=== PATIENT | female | born 1995 | race Caucasian/White ===

== ENCOUNTER 2016-08-10 20:22 | Emergency (ER) | payer OTHER ==
[2016-08-10 21:09] VITALS: RESP 18
[2016-08-10 22:50] LABS: Basophils # (A) 0.1 k/uL (0-0.2); Basophils % (A) 1 %; CH 27.8; CHCM 33.8; Eosinophils # (A) 0.7 k/uL (0-0.7); Eosinophils % (A) 9 %; HCT 41.9 % (34.0-46.0); HDW 2.17; Luc # (Auto) 0.22; Luc % (Auto) 3; Lymphocytes # (A) 2.6 k/uL (1.0-4.8); Lymphocytes % (A) 34 %; MCH 27.6 pg (25.0-35.0); MCHC 33.5 g/dL (31.0-37.0); MCV 82.3 fL (80.0-100.0); Mean Platelet Volume 7.5; Monocytes # (A) 0.4 k/uL (0-1.0); Monocytes % (A) 5 %; Neutrophils # (A) 3.7 k/uL (1.3-7.7); Neutrophils % (A) 49 %; RDW 12.9 % (11.5-15.5); WBC 7.7 k/uL (4.0-11.0); WBC (Perox) 7.87
[2016-08-10 22:56] LABS: Appearance,Urine Cloudy (Clear); Bacteria,Urine Few /hpf; Bilirubin,Urine Negative (Negative); Glucose,Urine (UA) Negative (Negative); Ketones,Urine Negative (Negative); Leukocyte Esterase,Urine Large (Negative); Mucus,Urine Rare /hpf; Nitrite,Urine Negative (Negative); Particle Count 12704; Protein,Urine Negative (Negative); RBC,Urine 21 /hpf (0-5); Specific Gravity,Urine 1.012 (1.001-1.035); Squamous Epithelial Cell,Urine 3 /hpf (0-4); UA Billing (MACRO vs. MICRO) MICRO; Urobilinogen,Urine <2.0 mg/dL (<2.0); WBC,Urine >182 /hpf (0-5)
[2016-08-10 22:59] LABS: ALT 33 U/L (9-52); AST 18 U/L (14-36); Alkaline Phosphatase 75 U/L (38-126); Anion Gap 14 mmol/L; Blood Urea Nitrogen 7 mg/dL (7-17); Calcium 10.2 mg/dL (8.4-10.2); Carbon Dioxide 23 mmol/L (22-30); Chloride 107 mmol/L (98-107); Glucose 86 mg/dL (74-99); Non-African American GFR(MDRD) >60 (>60 ml/min/1.73 sqM); Potassium 4.4 mmol/L (3.5-5.1); Sodium 144 mmol/L (137-145); Total Bilirubin 1.5 mg/dL (0.2-1.3); Total Protein 7.9 g/dL (6.3-8.2)
[2016-08-10] MEDS ORDERED: cefTRIAXone 250 MG VIAL IM STA (23:32)
[2016-08-10] MEDS ORDERED: AZITHROMYCIN 500 MG TAB PO STA (23:33)
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
[2016-08-11 00:07] VITALS: BP 129/81; PULSE 94; TEMP 98.7
--- NOTE | 2016-08-11 00:12 | XR ---
EXAM: XR Chest, 2 Views. CLINICAL HISTORY: Reason: Pain TECHNIQUE: Frontal and lateral views of the chest. COMPARISON: No relevant prior studies available. FINDINGS: Lungs: Unremarkable. No consolidation. Pleural spaces: Unremarkable. No pneumothorax. Heart: Unremarkable. No cardiomegaly. Mediastinum: Unremarkable. Bones: Unremarkable. No acute fracture. Other findings: IMPRESSION: No acute process seen within the chest.
[2016-08-11] MEDS ORDERED: metroNIDAZOLE 500 MG TAB PO STA (00:24)
[2016-08-12 09:32] LABS: Chlamydia/GC Source Vaginal
== END 2016-08-11 00:51 | disposition home or self-care (01) ==
LOC: EC 20:22
DX: N39.0 Urinary tract infection, site not specified (principal); A59.9 Trichomoniasis, unspecified; Z20.2 Contact with and (suspected) exposure to infections with a predominantly sexual mode of transmission
CPT/HCPCS: 36415; 93005; 80053; 87591; 87491; 84484; 85025; 81001; 81025; 87808; 87070; 87502; 71020; 99285; 96372; J0696; 87205

== ENCOUNTER 2017-03-21 20:33 | Emergency (ER) | payer OTHER ==
[2017-03-21 20:56] VITALS: RESP 18
[2017-03-21] MEDS ORDERED: IBUPROFEN 400 MG TAB PO STA (22:26)
[2017-03-21] MEDS ORDERED: predniSONE 20 MG TAB PO STA (22:26)
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
[2017-03-21 22:51] VITALS: BP 134/83; PULSE 82; TEMP 98.4
== END 2017-03-21 23:06 | disposition home or self-care (01) ==
LOC: EC 20:33
DX: J06.9 Acute upper respiratory infection, unspecified (principal); E66.9 Obesity, unspecified; Z91.018 Allergy to other foods; Z68.41 Body mass index [BMI] 40.0-44.9, adult
CPT/HCPCS: 99283 ×2; J7512

== ENCOUNTER 2017-06-02 16:47 | Emergency (ER) | payer OTHER ==
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
[2017-06-03 23:10] VITALS: BP 120/74; PULSE 73; RESP 18; TEMP 97.8
== END 2017-06-02 17:48 | disposition home or self-care (01) ==
LOC: EC 16:47
DX: J02.0 Streptococcal pharyngitis (principal); Z91.018 Allergy to other foods; Z79.899 Other long term (current) drug therapy
CPT/HCPCS: 87430; 99283

== ENCOUNTER 2017-07-12 20:14 | Emergency (ER) | payer OTHER ==
[2017-07-12 20:22] VITALS: BP 121/67; PULSE 98; RESP 18; TEMP 97.3
[2017-07-12] MEDS ORDERED: ACETAMINOPHEN TAB 325 MG TAB PO STA (20:31)
--- NOTE | 2017-07-12 21:07 | ED ---
Lower Extremity Injury HPI - General Chief Complaint: Extremity Injury, Lower Stated Complaint: foot pain Time Seen by Provider: 07/12/17 20:22 Source: patient Mode of arrival: ambulatory Limitations: no limitations - History of Present Illness Initial Comments: 21-year-old female patient presents to the emergency department today for complaints of right foot pain. Patient states that on Thursday she slipped down up 4-5 steps and twisted her foot. States that since it is not very painful to walk on the foot. She states that she feels the foot is swollen. She denies any numbness or tingling to the foot. She denies hitting her head or losing consciousness during the fall. She denies any other injuries. Patient denies any headache, neck pain, back pain, chest pain, shortness of breath, dizziness, weakness, abdominal pain, nausea, vomiting, or difficulties with bowel movements or urination. - Related Data Home Medications Medication Instructions Recorded Confirmed Cetirizine HCl [Zyrtec] 10 mg PO HS 04/08/17 04/08/17 Previous Rx's Medication Instructions Recorded Acetaminophen-Codeine 300-30mg 1 each PO Q6H PRN #10 tablet 04/08/17 [Tylenol #3] Penicillin V Potassium [Pen Vee K] 500 mg PO QID #40 tablet 04/08/17 Amoxicillin 500 mg PO Q12HR #20 cap 06/02/17 Allergies Allergy/AdvReac Type Severity Reaction Status Date / Time onion Allergy Anaphylaxis Verified 07/12/17 20:21 Review of Systems ROS Statement: Those systems with pertinent positive or pertinent negative responses have been documented in the HPI. ROS Other: All systems not noted in ROS Statement are negative. Past Medical History Past Medical History: Asthma History of Any Multi-Drug Resistant Organisms: None Reported Additional Past Surgical History / Comment(s): wisdom teeth Past Psychological History: Depression Smoking Status: Never smoker Past Alcohol Use History: None Reported Past Drug Use History: Marijuana General Exam Limitations: no limitations General appearance: alert, in no apparent distress, other (This is a well- developed, well-nourished adult female patient in no acute distress. Vital signs upon presentation are temperature 97.3F, pulse 98, respirations 18, blood pressure 121/67, pulse ox 100% on room air.) Eye exam: Present: normal appearance, PERRL, EOMI. Absent: scleral icterus, conjunctival injection, periorbital swelling ENT exam: Present: normal exam, normal oropharynx, mucous membranes moist Neck exam: Present: normal inspection, full ROM, other (Nontender, no step-off, no deformity to firm midline palpation of the posterior cervical spine. Full range of motion without pain or limitation.). Absent: tenderness, meningismus, lymphadenopathy Respiratory exam: Present: normal lung sounds bilaterally. Absent: respiratory distress, wheezes, rales, rhonchi, stridor Cardiovascular Exam: Present: regular rate, normal rhythm, normal heart sounds. Absent: systolic murmur, diastolic murmur, rubs, gallop, clicks Extremities exam: Present: normal inspection, full ROM, tenderness (Tenderness over the dorsal aspect of the foot near the base of the toes.), normal capillary refill. Absent: pedal edema, joint swelling, calf tenderness Back exam: Present: normal inspection. Absent: vertebral tenderness Neurological exam: Present: alert, oriented X3, CN II-XII intact Psychiatric exam: Present: normal affect, normal mood Skin exam: Present: warm, dry, intact, normal color. Absent: rash Course Vital Signs 07/12/17 20:18 Temperature 97.3 F L Pulse Rate 98 Respiratory 18 Rate Blood Pressure 121/67 O2 Sat by Pulse 100 Oximetry Medical Decision Making - Medical Decision Making 21-year-old female patient percents to the emergency department today for evaluation of right foot pain after a slip and fall injury on Thursday. Physical examination is unremarkable. Patient has a good pedal and posttibial pulses. Neurovascular status is intact. X-ray is negative for any acute fracture dislocation. She was educated regarding follow-up for continued pain after 7- 10 days which is instructed take ibuprofen, rest, ice, and elevate the extremity. She is instructed to return here immediately for any new, worsening , or concerning symptoms. She verbalizes understanding and agrees with this plan. - Radiology Data Radiology results: report reviewed, image reviewed 3 views of the right foot are obtained. There is mild hallux valgus deformity present. No acute fractures are evident. There is deformity of the fifth digit. Joint spaces appear preserved. Soft tissues are normal. Impression by Dr. Ambrocio shows no acute osseous abnormalities. Disposition Clinical Impression: Foot sprain Disposition: HOME SELF-CARE Condition: Good Instructions: Foot Sprain (ED) Additional Instructions: Rest, ice, elevate the foot. Take Tylenol Motrin for pain control. Follow-up with her primary care physician for reevaluation in 6-8 days for repeat x-ray if symptoms persist beyond that period. Return here immediately for any new, worsening, or concerning symptoms Referrals: Braden Shea MD [Primary Care Provider] - 1-2 days Time of Disposition: 21:19
--- NOTE | 2017-07-12 21:15 | XR ---
EXAMINATION TYPE: XR foot complete RT DATE OF EXAM: 07/12/2017 COMPARISON: NONE HISTORY: Pain, fall TECHNIQUE: Three-view right foot FINDINGS: There is mild hallux valgus deformity present. No acute fractures are evident. There is def ormity of the fifth digit may be present. Joint spaces are preserved. Soft tissues are normal. IMPRESSION: 1. No acute osseous abnormality evident. 2. Follow-up exams can be performed 7-10 days from acute trauma for continued pain.
== END 2017-07-12 21:30 | disposition home or self-care (01) ==
LOC: EC 20:14
DX: S93.601A Unspecified sprain of right foot, initial encounter (principal); Z79.899 Other long term (current) drug therapy; Z91.018 Allergy to other foods; W10.9XXA Fall (on) (from) unspecified stairs and steps, initial encounter; Y92.009 Unspecified place in unspecified non-institutional (private) residence as the place of occurrence of the external cause
CPT/HCPCS: 99283

== ENCOUNTER 2017-09-09 11:19 | Emergency (ER) | payer OTHER ==
[2017-09-09 11:29] VITALS: BP 124/83; PULSE 95; RESP 18; TEMP 98.9
--- NOTE | 2017-09-09 13:20 | ED ---
General Adult HPI - General Chief complaint: Skin/Abscess/Foreign Body Stated complaint: Hole in Armpit Time Seen by Provider: 09/09/17 12:42 Source: patient, RN notes reviewed Mode of arrival: ambulatory Limitations: no limitations - History of Present Illness Initial comments: 22-year-old female presents to the emergency department for a chief complaint of left armpit tenderness. Patient states this has been the second day of symptoms. Patient states she had an abscess on her buttock before and she believes that is what is going on in her armpit. Patient states hurts to lower her arm and apply pressure to the armpit. Patient denies trying warm compresses. Patient denies any drainage from the area. Patient denies any fevers at home. Patient denies any streaking redness. Patient states she has not taken anything for pain. Patient denies any ALLERGIES to medications or antibiotics. Patient denies any other complaints at this time including shortness of breath, chest pain, abdominal pain, shortness of breath. - Related Data Home Medications Medication Instructions Recorded Confirmed Cetirizine HCl [Zyrtec] 10 mg PO HS 04/08/17 04/08/17 Previous Rx's Medication Instructions Recorded Acetaminophen-Codeine 300-30mg 1 each PO Q6H PRN #10 tablet 04/08/17 [Tylenol #3] Penicillin V Potassium [Pen Vee K] 500 mg PO QID #40 tablet 04/08/17 Amoxicillin 500 mg PO Q12HR #20 cap 06/02/17 Sulfamethox-Tmp 800-160Mg [Bactrim 1 tab PO Q12HR #20 tab 09/09/17 DS 800-160 mg] Allergies Allergy/AdvReac Type Severity Reaction Status Date / Time onion Allergy Anaphylaxis Verified 09/09/17 11:29 Review of Systems ROS Statement: Those systems with pertinent positive or pertinent negative responses have been documented in the HPI. ROS Other: All systems not noted in ROS Statement are negative. Past Medical History Past Medical History: Asthma History of Any Multi-Drug Resistant Organisms: None Reported Additional Past Surgical History / Comment(s): wisdom teeth Past Psychological History: Anxiety, Depression Smoking Status: Never smoker Past Alcohol Use History: None Reported Past Drug Use History: Marijuana General Exam Limitations: no limitations Neck exam: Present: normal inspection. Absent: tenderness, meningismus, lymphadenopathy Respiratory exam: Present: normal lung sounds bilaterally. Absent: respiratory distress, wheezes, rales, rhonchi, stridor Cardiovascular Exam: Present: regular rate, normal rhythm, normal heart sounds. Absent: systolic murmur, diastolic murmur, rubs, gallop, clicks Skin exam: Present: warm, dry, intact, other (Skin in the area of the left armpit does not appear indurated or erythematous. Abscess not visualized on the surface. Patient states the tenderness is mostly in the middle of the armpit. Patient is tender to palpation. There is no drainage. ) Course Vital Signs 09/09/17 11:27 Temperature 98.9 F Pulse Rate 95 Respiratory 18 Rate Blood Pressure 124/83 O2 Sat by Pulse 97 Oximetry Medical Decision Making - Medical Decision Making 22-year-old female presents the emergency department for pain in the left armpit. Patient states that then 2 days. No fevers or worsening symptoms. Vitals within normal limits: Temp 98.9, pulse 95. No spreading redness or streaking redness. Patient has had an abscess before and believes it is an abscess. Patient has no other symptoms at this time. On exam, abscess not visualized on the surface. There is no focal point for drainage. Skin is not erythematous. Patient is tender in the armpit. Patient will be given Bactrim and told to use warm compresses. She was educated on how to do this. She was educated that this will hopefully bring it to the surface so it can be drained. She is to follow-up with Dr. Shea as discussed. She will return to the emergency Department if she notices any fevers or worsening symptoms. Disposition Clinical Impression: Abscess Disposition: HOME SELF-CARE Condition: Good Instructions: Abscess (ED), Warm Compress or Soak (ED) Additional Instructions: Please do warm compresses and take antibiotic as discussed. Please follow-up with Dr. Whiting and as discussed in one to 2 days. Return to the emergency department if you notice any fevers, worsening symptoms, or streaking redness. Prescriptions: Sulfamethox-Tmp 800-160Mg [Bactrim DS 800-160 mg] 1 tab PO Q12HR #20 tab Referrals: Braden Shea MD [Primary Care Provider] - 1-2 days
== END 2017-09-09 13:23 | disposition home or self-care (01) ==
LOC: EC 11:19
DX: L02.412 Cutaneous abscess of left axilla (principal); Z79.899 Other long term (current) drug therapy; Z91.018 Allergy to other foods
CPT/HCPCS: 99283

== ENCOUNTER 2017-10-04 13:06 | Emergency (ER) | payer OTHER ==
[2017-10-04 13:10] VITALS: BP 125/77; PULSE 87; RESP 20; TEMP 98.1
--- NOTE | 2017-10-04 13:40 | XR ---
EXAMINATION TYPE: XR lumbar spine 2 or 3V , 3 VIEWS DATE OF EXAM ORDERED: 10/04/2017 HISTORY: Pain. COMPARISON: None. FINDINGS: Due to body height and alignment are maintained. There is no spondylolysis or spondylolist hesis. Disc spaces are maintained. There is hypertrophic spondylosis at T11-12. The pedicles are inta ct. IMPRESSION: 1. NO ACUTE OSSEOUS LESION. 2. DEGENERATIVE CHANGE.
--- NOTE | 2017-10-04 13:40 | XR ---
EXAMINATION TYPE: XR thoracic spine complete , 3 VIEWS DATE OF EXAM ORDERED: 10/04/2017 HISTORY: Pain. COMPARISON: None. FINDINGS: Review body height and alignment are maintained. No fractures are seen. Paraspinal soft ti ssues are normal. The pedicles are intact. IMPRESSION: NORMAL THORACIC SPINE.
--- NOTE | 2017-10-04 13:41 | XR ---
EXAMINATION TYPE: XR Hip Complete LT , 2 VIEWS DATE OF EXAM ORDERED: 10/04/2017 HISTORY: Pain. COMPARISON: None. FINDINGS: No fracture, dislocation or other acute osseous lesion is seen IMPRESSION: NORMAL LEFT HIP.
--- NOTE | 2017-10-04 14:14 | ED ---
General Adult HPI - General Chief complaint: Back Pain/Injury Stated complaint: back and pelvis pain from fall down stairs Time Seen by Provider: 10/04/17 13:12 Source: patient, RN notes reviewed Mode of arrival: ambulatory Limitations: no limitations - History of Present Illness Initial comments: 22-year-old female presents to the emergency department for a chief complaint of back pain 2 days. Patient states her heel slipped down a step and she fell on her bottom and slid down about 5 steps. Patient states she has had pain since that time. Patient denies hitting her head or injuring her neck. Patient denies loss of consciousness. Patient denies any bladder retention or bowel incontinence. Patient denies any numbness or tingling in her groin or buttock. Patient denies any shooting pain down her legs but does say some pain is radiating around her left hip. Patient states she is able to walk. Patient has no other complaints at this time. Patient denies shortness of breath, chest pain, abdominal pain, nausea or vomiting, headache or visual changes. - Related Data Home Medications Medication Instructions Recorded Confirmed Cetirizine HCl [Zyrtec] 10 mg PO HS 04/08/17 04/08/17 Previous Rx's Medication Instructions Recorded Acetaminophen-Codeine 300-30mg 1 each PO Q6H PRN #10 tablet 04/08/17 [Tylenol #3] Penicillin V Potassium [Pen Vee K] 500 mg PO QID #40 tablet 04/08/17 Amoxicillin 500 mg PO Q12HR #20 cap 06/02/17 Sulfamethox-Tmp 800-160Mg [Bactrim 1 tab PO Q12HR #20 tab 09/09/17 DS 800-160 mg] Acetaminophen-Codeine 300-30mg 1 tab PO Q8H PRN #9 tablet 10/04/17 [Tylenol #3] Cyclobenzaprine [Flexeril] 5 mg PO TID #9 tablet 10/04/17 Ibuprofen [Motrin] 600 mg PO Q8HR PRN #20 tab 10/04/17 Allergies Allergy/AdvReac Type Severity Reaction Status Date / Time onion Allergy Anaphylaxis Verified 10/04/17 13:10 Review of Systems ROS Statement: Those systems with pertinent positive or pertinent negative responses have been documented in the HPI. ROS Other: All systems not noted in ROS Statement are negative. Past Medical History Past Medical History: Asthma History of Any Multi-Drug Resistant Organisms: None Reported Additional Past Surgical History / Comment(s): wisdom teeth Past Psychological History: Anxiety, Depression Smoking Status: Never smoker Past Alcohol Use History: Occasional Past Drug Use History: Marijuana General Exam Limitations: no limitations General appearance: alert, in no apparent distress Head exam: Present: atraumatic, normocephalic, normal inspection Eye exam: Present: normal appearance, PERRL, EOMI. Absent: scleral icterus, conjunctival injection, periorbital swelling Neck exam: Present: normal inspection, full ROM. Absent: tenderness, meningismus, lymphadenopathy Respiratory exam: Present: normal lung sounds bilaterally. Absent: respiratory distress, wheezes, rales, rhonchi, stridor Cardiovascular Exam: Present: regular rate, normal rhythm, normal heart sounds. Absent: systolic murmur, diastolic murmur, rubs, gallop, clicks Extremities exam: Present: other (Pedal pulse 2+ and lower extremities bilaterally. Patient has 5/5 strength in lower extremities bilaterally) Back exam: Present: tenderness, paraspinal tenderness (Patient has some left- sided paraspinal tenderness), vertebral tenderness (Vertebral tenderness from about T4-5 through the lumbar spine.). Absent: full ROM (Patient has about 45 of lumbar flexion, full extension, full rotation bilaterally.), CVA tenderness ( R), CVA tenderness (L) Neurological exam: Present: alert, oriented X3, CN II-XII intact, other (GCS 15) Course Vital Signs 10/04/17 13:08 Temperature 98.1 F Pulse Rate 87 Respiratory 20 Rate Blood Pressure 125/77 O2 Sat by Pulse 98 Oximetry Medical Decision Making - Medical Decision Making 22-year-old female presents to the emergency department for a chief complaint of low back pain 2 days. Patient fell down about 5 stairs on her buttocks. Patient denies hitting her head or loss of consciousness. No red flag symptoms such as bladder or bowel changes or saddle anesthesia. On exam patient has limited flexion of the lumbar spine, full extension, full rotation. Patient has tenderness from the thoracic spine to the lumbar spine. No cervical tenderness. X-ray was obtained for the thoracic and lumbar spine as well as the left hip. No acute fractures or dislocations evident. Patient will be given Flexeril and Motrin. If pain is severe and she has breakthrough pain with the Motrin she can take a Tylenol 3. Patient denies any chance of . Patient was educated not to drive or operate machinery on Flexeril or Tylenol 3. She says she doesn't drive anyway. She will return to the emergency Department if she has any worsening symptoms. She will follow up with primary care in 1-2 days. Disposition Clinical Impression: Mechanical back pain Disposition: HOME SELF-CARE Condition: Good Instructions: Acute Low Back Pain (ED) Additional Instructions: Please take Motrin for pain relief. If pain is severe with Motrin, take Tylenol 3. Take Flexeril as directed. Do not drive or operate machinery when taking Tylenol 3 or Flexeril. Please return to the emergency department if you have any bladder or bowel changes or worsening symptoms. Otherwise follow-up with primary care in 1-2 days. Prescriptions: Acetaminophen-Codeine 300-30mg [Tylenol #3] 1 tab PO Q8H PRN #9 tablet PRN Reason: Pain Cyclobenzaprine [Flexeril] 5 mg PO TID #9 tablet Ibuprofen [Motrin] 600 mg PO Q8HR PRN #20 tab PRN Reason: Pain Is patient prescribed a controlled substance at d/c from ED?: Yes Referrals: Braden Shea MD [Primary Care Provider] - 1-2 days Time of Disposition: 14:14
== END 2017-10-04 14:20 | disposition home or self-care (01) ==
LOC: EC 13:06
DX: M54.5 Low back pain (principal); Z79.899 Other long term (current) drug therapy; Z91.018 Allergy to other foods; W10.9XXA Fall (on) (from) unspecified stairs and steps, initial encounter
CPT/HCPCS: 72072; 72100; 73502; 99283

== ENCOUNTER 2017-11-24 22:04 | Emergency (ER) | payer OTHER ==
[2017-11-24 22:31] VITALS: TEMP 97.5
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
[2017-11-24] MEDS ORDERED: cefTRIAXone 250 MG VIAL IM STA (23:14)
[2017-11-24] MEDS ORDERED: BACITRACIN 500 UNIT/GM OINT 28.4 GM TUBE TOPICAL ONE (23:29)
[2017-11-24] MEDS ORDERED: BACITRACIN OINT 1 EACH PACKET TOPICAL STA (23:37)
[2017-11-25] MEDS ORDERED: AZITHROMYCIN 500 MG TAB PO STA (00:45)
[2017-11-25 01:02] VITALS: BP 129/63; PULSE 100; RESP 18
[2017-11-26 13:25] LABS: C. trachomatis,PCR Negative (Neg,Equiv); Chlamydia trachomatis Source Vagina
[2017-11-26 13:30] LABS: N. gonorrhoeae,PCR Negative (Neg,Equiv); Neisseria Source Vagina
== END 2017-11-25 01:04 | disposition home or self-care (01) ==
LOC: EC 22:04
DX: T22.011A Burn of unspecified degree of right forearm, initial encounter (principal); A59.01 Trichomonal vulvovaginitis; Z79.899 Other long term (current) drug therapy; Z91.048 Other nonmedicinal substance allergy status; Z91.018 Allergy to other foods; X19.XXXA Contact with other heat and hot substances, initial encounter; Y92.511 Restaurant or cafe as the place of occurrence of the external cause
CPT/HCPCS: 81025; 87808; 87491; 87591; 99283; 96372; J0696

== ENCOUNTER 2017-12-15 10:52 | Emergency (ER) | payer OTHER ==
[2017-12-15 11:15] VITALS: RESP 18; TEMP 98.4
--- NOTE | 2017-12-15 12:19 | ED ---
URI HPI - General Chief Complaint: Upper Respiratory Infection Stated Complaint: chest congestion Time Seen by Provider: 12/15/17 11:48 Source: patient, RN notes reviewed Mode of arrival: ambulatory Limitations: no limitations - History of Present Illness Initial Comments: This a 22-year-old female presents emergency Department chief complaint cough congestion. Patient states that she's been sick for last 4 days. Patient states wrist getting worse states that hurts to cough. Patient states that she has not tried any cdad-fuy-sdoiyat cough and cold medications. She admits to sinus congestion, posterior nasal drainage. Patient has no history of asthma lung issues. Denies ear pain, headache or dizziness. Patient states that she did take some Motrin for her chest discomfort which helped. - Related Data Home Medications Medication Instructions Recorded Confirmed Ibuprofen [Motrin Ib] 400 mg PO Q6H PRN 12/15/17 12/15/17 Previous Rx's Medication Instructions Recorded Azithromycin [Zithromax Z-pack] 0 mg PO DIRECTED #1 pack 12/15/17 predniSONE 50 mg PO DAILY #5 tab 12/15/17 Allergies Allergy/AdvReac Type Severity Reaction Status Date / Time grass pollen Allergy Rash/Hives Verified 12/15/17 12:02 onion Allergy Anaphylaxis Verified 12/15/17 12:02 Review of Systems ROS Statement: Those systems with pertinent positive or pertinent negative responses have been documented in the HPI. ROS Other: All systems not noted in ROS Statement are negative. Past Medical History Past Medical History: Asthma History of Any Multi-Drug Resistant Organisms: None Reported Additional Past Surgical History / Comment(s): wisdom teeth Past Psychological History: Anxiety, Depression Smoking Status: Never smoker Past Alcohol Use History: Occasional Past Drug Use History: Marijuana General Exam Limitations: no limitations General appearance: alert, in no apparent distress Head exam: Present: atraumatic, normocephalic, normal inspection Eye exam: Present: normal appearance, PERRL, EOMI. Absent: scleral icterus, conjunctival injection, periorbital swelling ENT exam: Present: mucous membranes moist, TM's normal bilaterally, normal external ear exam. Absent: normal oropharynx (Postnasal drainage) Neck exam: Present: normal inspection, full ROM. Absent: tenderness, meningismus, lymphadenopathy Respiratory exam: Present: normal lung sounds bilaterally. Absent: respiratory distress, wheezes, rales, rhonchi, stridor Cardiovascular Exam: Present: regular rate, normal rhythm, normal heart sounds. Absent: systolic murmur, diastolic murmur, rubs, gallop, clicks Skin exam: Present: warm, dry, intact, normal color. Absent: rash Course Vital Signs 12/15/17 12/15/17 11:13 11:45 Temperature 98.4 F Pulse Rate 100 Respiratory 18 18 Rate Blood Pressure 123/86 O2 Sat by Pulse 100 Oximetry Medical Decision Making - Medical Decision Making 22-year-old female presented emergency from for cough congestion. Patient has acute bronchitis. Patient was started on azithromycin steroids. Return parameters discussed. She is advised take [id number] decongestant. Disposition Clinical Impression: Bronchitis, Sinusitis Disposition: HOME SELF-CARE Condition: Stable Instructions: Upper Respiratory Infection (ED) Additional Instructions: Take [id number] cough and cold medication. Please return to the Emergency Department if symptoms worsen or any other concerns. Prescriptions: Azithromycin [Zithromax Z-pack] 0 mg PO DIRECTED #1 pack predniSONE 50 mg PO DAILY #5 tab Is patient prescribed a controlled substance at d/c from ED?: No Referrals: Braden Shea MD [Primary Care Provider] - 1-2 days Time of Disposition: 12:49
--- NOTE | 2017-12-15 12:30 | XR ---
EXAMINATION TYPE: XR chest 2V DATE OF EXAM: 12/15/2017 COMPARISON: Chest x-ray August 10, 2016 HISTORY: Cough and congestion. TECHNIQUE: Frontal and lateral views of the chest are obtained. FINDINGS: There is no focal air space opacity, pleural effusion, or pneumothorax seen. The cardiac silhouette size is within normal limits. The osseous structures are intact. IMPRESSION: No acute cardiopulmonary process. No significant change from prior.
[2017-12-15 13:09] VITALS: BP 120/80; PULSE 94
== END 2017-12-15 13:09 | disposition home or self-care (01) ==
LOC: EC 10:52
DX: J40 Bronchitis, not specified as acute or chronic (principal); J32.9 Chronic sinusitis, unspecified; Z91.018 Allergy to other foods; Z91.09 Other allergy status, other than to drugs and biological substances
CPT/HCPCS: 71046; 99283

== ENCOUNTER 2018-02-06 15:39 | Emergency (ER) | payer OTHER ==
[2018-02-06 15:51] VITALS: BP 129/82; PULSE 98; RESP 18; TEMP 98.4
[2018-02-06] MEDS ORDERED: IBUPROFEN 600 MG TAB PO STA (16:19)
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
--- NOTE | 2018-02-06 17:45 | XR ---
EXAMINATION TYPE: XR hand complete RT DATE OF EXAM: 02/06/2018 COMPARISON: None HISTORY: Pain and swelling TECHNIQUE: Three-view right hand FINDINGS: No acute fractures are evident. Joint spaces are preserved. Soft tissues appear normal. Sma ll nodularity may be adjacent to the proximal phalanx fifth digit on the AP hand image. Correlate wit h physical symptoms. IMPRESSION: 1. No acute osseous abnormality. 2. Soft tissue nodularity not excluded along the proximal fifth digit adjacent to the proximal phalan x.
== END 2018-02-06 18:05 | disposition home or self-care (01) ==
LOC: EC 15:39
DX: S06.0X0A Concussion without loss of consciousness, initial encounter (principal); M79.641 Pain in right hand; M54.2 Cervicalgia; Z91.048 Other nonmedicinal substance allergy status; Z91.018 Allergy to other foods; Y04.2XXA Assault by strike against or bumped into by another person, initial encounter
CPT/HCPCS: 70450; 70486; 72125; 99284

== ENCOUNTER 2018-04-17 12:40 | Emergency (ER) | payer OTHER ==
[2018-04-17 12:55] VITALS: BP 105/74; PULSE 77; RESP 18; TEMP 98.1
--- NOTE | 2018-04-17 13:02 | ED ---
Recheck HPI - General Chief Complaint: Recheck/Abnormal Lab/Rx Stated Complaint: missed regular menstrual cycle Time Seen by Provider: 04/17/18 12:56 Source: patient, RN notes reviewed Mode of arrival: ambulatory Limitations: no limitations - History of Present Illness Initial Comments: 22-year-old female presents emergency Department chief complaint of possible . Patient states that she is 4 days late for her menstrual cycle and states that she is normally very regular. She denies any vaginal bleeding or vaginal discharge. She states she has no abdominal pain. Patient states that she did have unprotected sex she's had no prior . Patient did take apparently test few days ago which was negative. Patient states that she just wants to make sure that it is negative. Patient has no other complaints. - Related Data Home Medications Medication Instructions Recorded Confirmed Ibuprofen [Motrin Ib] 400 mg PO Q6H PRN 12/15/17 12/15/17 Previous Rx's Medication Instructions Recorded Azithromycin [Zithromax Z-pack] 0 mg PO DIRECTED #1 pack 12/15/17 predniSONE 50 mg PO DAILY #5 tab 12/15/17 Acetaminophen Tab [Tylenol Tab] 500 mg PO Q6H PRN 7 Days #28 tablet 02/06/18 Ibuprofen [Motrin] 800 mg PO Q8H PRN 7 Days #21 tab 02/06/18 Yfd-Wtiz-Tfdgy Acid 1 each PO DAILY #30 cap 04/17/18 [-U Capsule] Allergies Allergy/AdvReac Type Severity Reaction Status Date / Time grass pollen Allergy Rash/Hives Verified 04/17/18 12:55 onion Allergy Anaphylaxis Verified 04/17/18 12:55 Review of Systems ROS Statement: Those systems with pertinent positive or pertinent negative responses have been documented in the HPI. ROS Other: All systems not noted in ROS Statement are negative. Past Medical History Past Medical History: Asthma History of Any Multi-Drug Resistant Organisms: None Reported Additional Past Surgical History / Comment(s): wisdom teeth Past Psychological History: Anxiety, Depression Smoking Status: Never smoker Past Alcohol Use History: Occasional Past Drug Use History: Marijuana General Exam Limitations: no limitations General appearance: alert, in no apparent distress Head exam: Present: atraumatic, normocephalic, normal inspection Eye exam: Present: normal appearance, PERRL, EOMI. Absent: scleral icterus, conjunctival injection, periorbital swelling Respiratory exam: Present: normal lung sounds bilaterally. Absent: respiratory distress, wheezes, rales, rhonchi, stridor Cardiovascular Exam: Present: regular rate, normal rhythm, normal heart sounds. Absent: systolic murmur, diastolic murmur, rubs, gallop, clicks GI/Abdominal exam: Present: soft, normal bowel sounds. Absent: distended, tenderness, guarding, rebound, rigid Neurological exam: Present: alert Skin exam: Present: warm, dry, intact, normal color. Absent: rash Course Vital Signs 04/17/18 12:52 Temperature 98.1 F Pulse Rate 77 Respiratory 18 Rate Blood Pressure 105/74 O2 Sat by Pulse 98 Oximetry Medical Decision Making - Medical Decision Making 22-year-old female presented emergency department for test. Patient has positive with no associated symptoms. She denies any abdominal pain, vaginal bleeding, vaginal discharge. Patient will be discharged she is advised follow-up with [facility]. She states she'll contact her own. - Lab Data Lab Results 04/17/18 04/17/18 Range/Units 13:15 13:15 Urine Color Light Yellow Urine Appearance Cloudy H (Clear) Urine pH 5.5 (5.0-8.0) Ur Specific [place] 1.010 (1.001-1.035) Urine Protein Negative (Negative) Urine Glucose (UA) Negative (Negative) Urine Ketones Negative (Negative) Urine Blood Negative (Negative) Urine Nitrite Negative (Negative) Urine Bilirubin Negative (Negative) Urine Urobilinogen <2.0 (<2.0) mg/dL Ur Leukocyte Esterase Small H (Negative) Urine RBC 2 (0-5) /hpf Urine WBC 5 (0-5) /hpf Ur Squamous Epith Cells 4 (0-4) /hpf Urine Bacteria Rare H (None) /hpf Urine Mucus Rare H (None) /hpf Urine HCG, Qual Detected (Not Detectd) Disposition Clinical Impression: Disposition: HOME SELF-CARE Condition: Stable Instructions: (ED) Additional Instructions: Please return to the Emergency Department if symptoms worsen or any other concerns. Prescriptions: Nqg-Glsp-Nvkso Acid [-U Capsule] 1 each PO DAILY #30 cap Is patient prescribed a controlled substance at d/c from ED?: No Referrals: Braden Shea MD [Primary Care Provider] - 1-2 days Time of Disposition: 13:50
[2018-04-17 13:32] LABS: Appearance,Urine Cloudy (Clear); Bacteria,Urine Rare /hpf; Bilirubin,Urine Negative (Negative); Blood,Urine Negative (Negative); Color,Urine Light Yellow; Glucose,Urine (UA) Negative (Negative); Ketones,Urine Negative (Negative); Leukocyte Esterase,Urine Small (Negative); Mucus,Urine Rare /hpf; Nitrite,Urine Negative (Negative); PH, Urine 5.5 (5.0-8.0); Protein,Urine Negative (Negative); RBC,Urine 2 /hpf (0-5); Squamous Epithelial Cell,Urine 4 /hpf (0-4); Urobilinogen,Urine <2.0 mg/dL (<2.0); WBC,Urine 5 /hpf (0-5)
== END 2018-04-17 13:59 | disposition home or self-care (01) ==
LOC: EC 12:40
DX: Z32.01 Encounter for pregnancy test, result positive (principal); Z91.018 Allergy to other foods; Z91.048 Other nonmedicinal substance allergy status
CPT/HCPCS: 81001; 81025; 99282

== ENCOUNTER 2018-05-13 13:13 | Emergency (ER) | payer OTHER ==
[2018-05-13 13:29] VITALS: BP 132/85; PULSE 89; RESP 18; TEMP 98.1
[2018-05-13] MEDS ORDERED: ACETAMINOPHEN TAB 325 MG TAB PO STA (14:29)
[2018-05-13] MEDS ORDERED: PENICILLIN V POTASSIUM 250 MG TAB PO STA (14:29)
--- NOTE | 2018-05-13 14:41 | ED ---
ENT HPI - General Chief complaint: Dental/Oral Stated complaint: dental pain,2 months Time Seen by Provider: 05/13/18 14:19 Source: patient, RN notes reviewed Mode of arrival: ambulatory Limitations: no limitations - History of Present Illness Initial comments: This is a 22-year-old female, currently 2 months , who presents to the emergency department with chief complaint of dental pain. Patient reports that she has been having right upper molar pain for the past few days. She states that there is a hole in one of her molars that she has been meaning to get fixed , however it has never caused her any problems. She states while brushing her teeth today, the tooth began bleeding. She reports jaw pain. Denies any fevers or chills. - Related Data Previous Rx's Medication Instructions Recorded Rtx-Cvbp-Feqni Acid 1 each PO DAILY #30 cap 04/17/18 [-U Capsule] Acetaminophen [Acetaminophen ER] 650 mg PO Q4-6H #30 tablet.er 05/13/18 Penicillin V Potassium [Pen Vee K] 500 mg PO QID 10 Days tab 05/13/18 Allergies Allergy/AdvReac Type Severity Reaction Status Date / Time grass pollen Allergy Rash/Hives Verified 04/17/18 12:55 onion Allergy Anaphylaxis Verified 04/17/18 12:55 Review of Systems ROS Statement: Those systems with pertinent positive or pertinent negative responses have been documented in the HPI. ROS Other: All systems not noted in ROS Statement are negative. Constitutional: Denies: fever, chills ENT: Reports: dental pain. Denies: ear pain Gastrointestinal: Denies: vomiting Past Medical History Past Medical History: Asthma History of Any Multi-Drug Resistant Organisms: None Reported Additional Past Surgical History / Comment(s): wisdom teeth Past Psychological History: Anxiety, Depression Smoking Status: Never smoker Past Alcohol Use History: Occasional Past Drug Use History: None Reported, Marijuana General Exam - General Exam Comments Initial Comments: General: Awake and alert, well-developed; in no apparent distress. HEENT: Head atraumatic, normocephalic. Pupils are equal, round and reactive to light. Extraocular movements intact. Oropharynx moist. Tooth #3 is fractured. No gumline tenderness, fluctuance or masses are noted. No facial swelling. Neck: Supple. Normal ROM. Cardiovascular: Regular rate and rhythm. No murmurs, rubs or gallops. Chest symmetrical. Respiratory: Lungs clear to auscultation bilaterally. No wheezes, rales or rhonchi. Normal respiratory effort with no use of accessory muscles. Musculoskeletal: Normal ROM, no tenderness bilateral upper and lower extremities. Ambulating normally. Skin: [place], warm and dry. Neurological: Alert and oriented x3. Speech is fluent and answers are appropriate. Psychiatric: Normal mood and affect. No overt signs of depression or anxiety noted. Limitations: no limitations Course Vital Signs 05/13/18 13:26 Temperature 98.1 F Pulse Rate 89 Respiratory 18 Rate Blood Pressure 132/85 O2 Sat by Pulse 99 Oximetry Medical Decision Making - Medical Decision Making This is a 22-year-old female who presents to the emergency department with chief complaint of dental pain. On physical examination, tooth #3 is fractured. No abscesses are noted. Patient is currently 2 months . Educated patient that the only safe pain medication to use in is Tylenol. Penicillin VK is also safe in and will be prescribed. Patient is provided with contact information for a local dental follow-up. Vitals are stable and patient is in no acute distress. She will be discharged home at this time. She is in agreement and voices understanding. All questions were answered. Disposition Clinical Impression: Dental caries, Toothache Disposition: HOME SELF-CARE Condition: Good Instructions: Dental Caries (ED), Toothache (ED) Additional Instructions: Please take medications as prescribed. Please follow up with primary care provider within 1-2 days. Return to emergency department if symptoms should worsen or any concerns arise. Please follow up with the [facility]. [facility] [place] [address]. Phone number for new patients or [phone] for existing patients. Prescriptions: Acetaminophen [Acetaminophen ER] 650 mg PO Q4-6H #30 tablet.er Penicillin V Potassium [Pen Vee K] 500 mg PO QID 10 Days tab Is patient prescribed a controlled substance at d/c from ED?: No Referrals: Braden Shea MD [Primary Care Provider] - 1-2 days Time of Disposition: 14:37
== END 2018-05-13 15:17 | disposition home or self-care (01) ==
LOC: EC 13:13
DX: O99.611 Diseases of the digestive system complicating pregnancy, first trimester (principal); K02.9 Dental caries, unspecified; O9A.211 Injury, poisoning and certain other consequences of external causes complicating pregnancy, first trimester; S02.5XXA Fracture of tooth (traumatic), initial encounter for closed fracture; Z91.018 Allergy to other foods; Z91.048 Other nonmedicinal substance allergy status; Z3A.08 8 weeks gestation of pregnancy; X58.XXXA Exposure to other specified factors, initial encounter
CPT/HCPCS: 99282

== ENCOUNTER 2018-07-09 19:15 | Emergency (ER) | payer OTHER ==
[2018-07-09 19:19] VITALS: TEMP 98.3
--- NOTE | 2018-07-09 20:05 | ED ---
Female Urogenital HPI - General Chief complaint: Vaginal Bleeding Stated complaint: 15 weeks preg and bleeding Time Seen by Provider: 07/09/18 19:45 Source: patient, RN notes reviewed Mode of arrival: ambulatory Limitations: no limitations - History of Present Illness Initial comments: 22-year-old female presents emergency Department with chief complaint of vaginal bleeding and . Patient states she is 14 weeks and 5 days. Patient states her [employer] is Dr. Alfaro. Patient has an appointment next week. Patient is A0. Patient is unsure what her blood type is. She has no dysuria, urinary frequency. Patient states that she just doesn't feel right today felt some abdominal cramping. Patient noticed some spotting after going of breath. Patient states that she has no current nausea vomiting. Patient denies any other complaints this time. - Related Data Home Medications Medication Instructions Recorded Confirmed Fxe-Lpnk-Qxmzm Acid 1 cap PO DAILY 07/09/18 07/09/18 [-U Capsule] Previous Rx's Medication Instructions Recorded Cephalexin [Keflex] 500 mg PO Q8HR #21 cap 07/09/18 Allergies Allergy/AdvReac Type Severity Reaction Status Date / Time grass pollen Allergy Rash/Hives Verified 07/09/18 19:57 onion Allergy Anaphylaxis Verified 07/09/18 19:57 Review of Systems ROS Statement: Those systems with pertinent positive or pertinent negative responses have been documented in the HPI. ROS Other: All systems not noted in ROS Statement are negative. Past Medical History Past Medical History: Asthma History of Any Multi-Drug Resistant Organisms: None Reported Past Surgical History: No Surgical Hx Reported Additional Past Surgical History / Comment(s): wisdom teeth Past Psychological History: Anxiety, Depression Smoking Status: Never smoker Past Alcohol Use History: Occasional Past Drug Use History: None Reported, Marijuana General Exam Limitations: no limitations General appearance: alert, in no apparent distress Head exam: Present: atraumatic, normocephalic, normal inspection Eye exam: Present: normal appearance, PERRL, EOMI. Absent: scleral icterus, conjunctival injection, periorbital swelling ENT exam: Present: normal exam, normal oropharynx, mucous membranes moist Neck exam: Present: normal inspection. Absent: tenderness, meningismus, lymphadenopathy Respiratory exam: Present: normal lung sounds bilaterally. Absent: respiratory distress, wheezes, rales, rhonchi, stridor Cardiovascular Exam: Present: regular rate, normal rhythm, normal heart sounds. Absent: systolic murmur, diastolic murmur, rubs, gallop, clicks GI/Abdominal exam: Present: soft, normal bowel sounds. Absent: distended, tenderness, guarding, rebound, rigid Back exam: Absent: CVA tenderness (R), CVA tenderness (L) Skin exam: Present: warm, dry, intact, normal color. Absent: rash Course Vital Signs 07/09/18 19:17 Temperature 98.3 F Pulse Rate 75 Respiratory 18 Rate Blood Pressure 132/80 O2 Sat by Pulse 99 Oximetry Medical Decision Making - Medical Decision Making 22-year-old female presentedf or vaginal bleeding and . Patient ultrasound which showed no acute abnormality., Patient is B+ blood type does not receive RhoGAM at this time. Patient does have evidence of urinary tract infection. She'll be discharged Return parameters were discussed. - Lab Data Lab Results 07/09/18 07/09/18 07/09/18 Range/Units 20:05 20:15 20:35 Urine Color Yellow Urine Appearance Cloudy H (Clear) Urine pH 6.0 (5.0-8.0) Ur Specific [place] 1.014 (1.001-1.035) Urine Protein Negative (Negative) Urine Glucose (UA) Negative (Negative) Urine Ketones Negative (Negative) Urine Blood Small H (Negative) Urine Nitrite Negative (Negative) Urine Bilirubin Negative (Negative) Urine Urobilinogen <2.0 (<2.0) mg/dL Ur Leukocyte Esterase Large H (Negative) Urine RBC 14 H (0-5) /hpf Urine WBC 55 H (0-5) /hpf Ur Squamous Epith Cells 18 H (0-4) /hpf Amorphous Sediment Rare H (None) /hpf Urine Bacteria Occasional H (None) /hpf Urine Mucus Rare H (None) /hpf Blood Type B Positive Blood Type Confirm B Positive Blood Type Recheck CABO Indicated Disposition Clinical Impression: Threatened miscarriage, UTI (urinary tract infection) Disposition: HOME SELF-CARE Condition: Stable Instructions (If sedation given, give patient instructions): Urinary Tract Infection in (ED), Threatened Miscarriage (ED) Additional Instructions: Please return to the Emergency Department if symptoms worsen or any other concerns. Prescriptions: Cephalexin [Keflex] 500 mg PO Q8HR #21 cap Is patient prescribed a controlled substance at d/c from ED?: No Referrals: Braden Shea MD [Primary Care Provider] - 1-2 days Time of Disposition: 22:01
[2018-07-09 21:02] LABS: Amorphous Sediment,Urine Rare /hpf; Appearance,Urine Cloudy (Clear); Bacteria,Urine Occasional /hpf; Bilirubin,Urine Negative (Negative); Blood,Urine Small (Negative); Color,Urine Yellow; Glucose,Urine (UA) Negative (Negative); Ketones,Urine Negative (Negative); Leukocyte Esterase,Urine Large (Negative); Mucus,Urine Rare /hpf; Nitrite,Urine Negative (Negative); Protein,Urine Negative (Negative); RBC,Urine 14 /hpf (0-5); Specific Gravity,Urine 1.014 (1.001-1.035); Squamous Epithelial Cell,Urine 18 /hpf (0-4); Urobilinogen,Urine <2.0 mg/dL (<2.0)
--- NOTE | 2018-07-09 21:25 | US ---
EXAMINATION TYPE: US OB >= 14 wk fetus DATE OF EXAM: 07/09/2018 COMPARISON: None CLINICAL HISTORY: Pain, spotting with TECHNIQUE: Departmental protocol. GESTATIONAL AGE / DATING Physician Established: (15 weeks/4 days) EDC: 12/27/2018 Dates by LMP: (16 weeks/4 days) EDC: 12/20/2018 Dates by First Scan: No previous this is first scan Dates by Current Scan: (16 weeks/3 days) EDC: 12/21/2018 SURVEY IUP: Single PLACENTA: Anterior PREVIA: No Previa SHERIDAN: 11.9 cm Normal CERVICAL LENGTH (transabdominal: norm > 3.0cm): 3.2 cm LIMITED VISUALIZATION OF CERVIX DUE TO NONDISTENDED BLADDER. BIOMETRY PRESENTATION: Breech BPD: 3.2 cm 16 weeks / 2 days HC: 12.1 cm 16 weeks / 0 days AC: 10.8 cm 16 weeks / 5 days FL: 2.2 cm 16 weeks / 4 days ESTIMATED WEIGHT IN GRAMS: 161 grams ESTIMATED WEIGHT IN LBS/OZ: 0 lbs. 6 oz. WEIGHT PERCENTAGE BASED ON ESTABLISHED DATES: 95.6% HC/AC: 1.1 Normal FL/AC: 20.5 Normal HEART RATE: 146 bpm RHYTHM: Normal IMPRESSION: VIABLE IUP THAT CORRELATES WITH PATIENT'S LMP.
[2018-07-09 22:21] VITALS: BP 112/73; PULSE 85; RESP 16
== END 2018-07-09 22:19 | disposition home or self-care (01) ==
LOC: EC 19:15
DX: O20.0 Threatened abortion (principal); O23.42 Unspecified infection of urinary tract in pregnancy, second trimester; Z91.048 Other nonmedicinal substance allergy status; Z91.018 Allergy to other foods; Z3A.16 16 weeks gestation of pregnancy
CPT/HCPCS: 76805; 81001; 86900; 86901; 87086; 99284

== ENCOUNTER 2018-09-02 10:01 | Outpatient (CLI) | payer OTHER ==
[2018-09-02 10:55] VITALS: BP 121/63; PULSE 74; RESP 18; TEMP 98.7
[2018-09-02 11:09] LABS: Appearance,Urine Cloudy (Clear); Bacteria,Urine Rare /hpf; Bilirubin,Urine Negative (Negative); Blood,Urine Negative (Negative); Color,Urine Yellow; Glucose,Urine (UA) Negative (Negative); Ketones,Urine Negative (Negative); Leukocyte Esterase,Urine Large (Negative); Mucus,Urine Rare /hpf; Nitrite,Urine Negative (Negative); PH, Urine 6.5 (5.0-8.0); Protein,Urine Negative (Negative); RBC,Urine 1 /hpf (0-5); Specific Gravity,Urine 1.015 (1.001-1.035); Squamous Epithelial Cell,Urine 4 /hpf (0-4); Urobilinogen,Urine <2.0 mg/dL (<2.0)
--- NOTE | 2018-09-03 11:35 | P.MSEPDOC ---
Presenting Problems - Arrival Data Date of Arrival on Unit: 09/02/18 Time of Arrival on Unit: 10:02 Mode of Transport: Ambulatory Medical History - Information : 1 Para: 0 Term: 0 : 0 Abortions: Spontaneous or Elective: 0 Number of Living Children: 0 - Gestational Age Gestational Age by NICO (wks/days): 23 Weeks and 3 Days - History Comment: Hx of Trichimoniasis Review of Systems - Review of Systems Constitutional: No problems Breast: No problems ENT: No problems Cardiovascular: No problems Respiratory: No problems Gastrointestinal: No problems Genitourinary: No problems Neurological: No problems Skin: No problems Comment: C/O pain in pelvic area and across lower abdomen Vital Signs - Temperature Temperature: 98.7 F Temperature Source: Oral - Pulse Right Pulse Rate: 74 Pulse Assessment Method: Automatic Cuff - Respirations Respiratory Rate: 18 Oxygen Delivery Method: Room Air O2 Sat by Pulse Oximetry: 99 - Blood Pressure Right Arm Blood Pressure: 121/63 Blood Pressure Mean: 82 Blood Pressure Source: Automatic Cuff Medical Screen Scoring (Pre) - Cervical Exam Dilation: Exam Deferred Effacement: Exam Deferred Membranes: Intact - Uterine Contractions Frequency: N/A Duration: N/A Intensity: N/A - Maternal Vital Signs Maternal Temperature: N/A Maternal Blood Pressure: N/A Signs of Preeclampsia: N/A Maternal Respirations: N/A - Pain Assessment Pain Location and Character: Abdomen, Pelvic Pain Scale Used: Numeric (1 - 10) Pain Intensity: 8 Pain Management Goal: 3 Pain Description: *Acute, Aching, Sharp Pain Radiation Location: mons pubis Pain Frequency: Constant Pain Duration: 24 Pain Duration Units: Hours Pain Behavior: Decreased Activity, Facial Grimacing, Limping, Vocalization Effects of Pain: difficulty walking & standing Pain Aggravating Factors: Position, Standing, Walking Non-Pharmacological Interventions: Ice - Maternal Trauma Maternal Trauma: N/A - Assessment Baseline FHR: 140 - Total Score Total Score (Pre): 0 - Level of Risk Level of Risk: Low (0-5) Physician Notification (Pre) - Physician Notified Physician Notified Date: 09/02/18 Physician Notified Time: 10:44 Physician/Practitioner Notifed:: Dr. Abreu Spoke With: Dr. Abreu New Order Received: Yes - Notification Comment Comment: Order for U/A Physician Notification (Post) - Physician Notified Physician Notified Date: 09/02/18 Physician Notified Time: 12:20 Physician/Practitioner Notified:: Dr. Abreu Spoke With: Dr. Abreu New Order Received: Yes - Notification Comment Comment: U/A results reviewed. Pt may be discharged home. Disposition - Disposition OB Disposition: Discharge to home Discharge Date: 09/02/18 Discharge Time: 12:27 I agree with the RN Medical Screening Exam: Yes Risk & Benefit of care provided described in d/c instruction: Yes Diagnosis: RELATED CONDITIONS, UNSPECIFIED, SECOND TRIMESTER
== END 2018-09-02 12:27 | disposition home or self-care (01) ==
LOC: FBPOP 10:01
PROVIDERS: ATTEND Obstetrics & Gynecology
DX: O26.92 Pregnancy related conditions, unspecified, second trimester (principal); Z3A.23 23 weeks gestation of pregnancy
CPT/HCPCS: 81001; G0463; 99213

== ENCOUNTER 2018-10-07 23:33 | Outpatient (CLI) | payer OTHER ==
[2018-10-08 00:04] VITALS: BP 124/69; TEMP 97.5
[2018-10-08 01:03] VITALS: PULSE 75; RESP 16
--- NOTE | 2018-11-08 12:26 | P.MSEPDOC ---
Presenting Problems - Arrival Data Date of Arrival on Unit: 10/07/18 Time of Arrival on Unit: 23:33 Mode of Transport: Ambulatory - Complaint OB-Reason for Admission/Chief Complaint: Decreased Movement Comment: no movement for over 24 hours Medical History - Information : 1 Para: 0 Term: 0 : 0 Abortions: Spontaneous or Elective: 0 Number of Living Children: 0 - Gestational Age Gestational Age by NICO (wks/days): 28 Weeks and 3 Days Review of Systems - Review of Systems Constitutional: No problems Breast: No problems ENT: No problems Cardiovascular: No problems Respiratory: No problems Gastrointestinal: No problems Genitourinary: No problems Musculoskeletal: No problems Neurological: No problems Skin: No problems Vital Signs - Temperature Temperature: 97.5 F Temperature Source: Temporal Artery Scan - Pulse Right Pulse Rate: 75 Pulse Assessment Method: Pulse Oximetry - Respirations Respiratory Rate: 16 O2 Sat by Pulse Oximetry: 100 - Blood Pressure Right Arm Blood Pressure: 124/69 Blood Pressure Mean: 87 Blood Pressure Source: Automatic Cuff Medical Screen Scoring (Pre) - Cervical Exam Dilation: Exam Deferred Effacement: Exam Deferred Membranes: Intact - Uterine Contractions Frequency: < 36 weeks = 6 Duration: > 40 seconds = 2 Intensity: N/A - Maternal Vital Signs Maternal Temperature: N/A Maternal Blood Pressure: N/A Signs of Preeclampsia: N/A Maternal Respirations: N/A - Assessment - Baby A Baseline FHR: 145 Heart Rate - NICHD Category: Category I (Normal) = 0 NST: Reactive Position: N/A Station: N/A - Total Score - Baby A Total Score - Baby A: 8 - Level of Risk - Baby A Level of Risk - Baby A: Medium (6-9) - Pain Assessment Pain Location and Character: Abdomen Pain Scale Used: Numeric (1 - 10) Pain Intensity: 6 Pain Management Goal: 3 Pain Description: *Acute, Cramping Pain Frequency: Occasional Pain Behavior: Vocalization Pain Aggravating Factors: None Medical Screen Scoring (Post) - Cervical Exam Dilation: Exam Deferred Effacement: Exam Deferred - Uterine Contractions Frequency: < 36 weeks = 6 Duration: > 40 seconds = 2 Intensity: N/A - Maternal Vital Signs Maternal Temperature: N/A Maternal Blood Pressure: N/A Signs of Preeclampsia: N/A Maternal Respirations: N/A - Pain Assessment Pain Intensity: 0 - Assessment - Baby A Heart Rate: 130 Heart Rate - NICHD Category: Category I (Normal) = 0 NST: Reactive Position: N/A - Total Score Total Score - Baby A: 8 - Post Treatment Level of Risk Post Treatment Level of Risk - Baby A: Medium (6-9) Physician Notification (Post) - Physician Notified Physician Notified Date: 10/08/18 Physician Notified Time: 00:12 Physician/Practitioner Notified:: Dr Hernandez - Notification Comment Comment: reported on decreased fm x24 hrs- intermittent strip due to movement, gest age and maternal size. reported on occasional cramping today, nothing while in triage, but cntrx per toco, none per palpation or pt report. orders to d/c home with instructions. call office in am to schedule earlier appt. return with new or worsening sx Disposition - Disposition OB Disposition: Discharge to home Discharge Date: 10/08/18 Discharge Time: 00:25 I agree with the RN Medical Screening Exam: Yes Risk & Benefit of care provided described in d/c instruction: Yes Diagnosis: DECREASED MOVEMENTS, THIRD TRIMESTER, FETUS 1
== END 2018-10-08 00:25 | disposition home or self-care (01) ==
LOC: FBPOP 23:33
PROVIDERS: ATTEND Obstetrics & Gynecology Obstetrics
DX: O36.8130 Decreased fetal movements, third trimester, not applicable or unspecified (principal); Z3A.28 28 weeks gestation of pregnancy
CPT/HCPCS: 59025; G0463; 99213

== ENCOUNTER 2018-10-30 09:18 | Emergency (ER) | payer OTHER ==
[2018-10-30 09:41] VITALS: BP 119/67; PULSE 90; RESP 18; TEMP 98.5
--- NOTE | 2018-10-30 09:59 | ED ---
ENT HPI - General Chief complaint: Dental/Oral Stated complaint: dental pain post tooth extraction Time Seen by Provider: 10/30/18 09:45 Source: patient, RN notes reviewed Mode of arrival: ambulatory Limitations: no limitations - History of Present Illness Initial comments: This a 23-year-old female presents emergency Department with chief complaint of dental pain. Patient had a tooth extraction to 3 days ago. Patient states that she's had no improvement pain times states it's is still playful states that feels swollen. No fevers or chills no facial pain denies any headache or dizziness no neck pain. Patient states she was prescribed Tylenol with codeine no antibiotics. Patient states it was infected. - Related Data Home Medications Medication Instructions Recorded Confirmed Try-Itub-Nnvuu Acid 1 cap PO DAILY 07/09/18 10/07/18 [-U Capsule] Previous Rx's Medication Instructions Recorded Penicillin V Potassium [Pen Vee K] 500 mg PO QID #40 tablet 10/30/18 Allergies Allergy/AdvReac Type Severity Reaction Status Date / Time grass pollen Allergy Rash/Hives Verified 10/07/18 23:56 onion Allergy Anaphylaxis Verified 10/07/18 23:56 Review of Systems ROS Statement: Those systems with pertinent positive or pertinent negative responses have been documented in the HPI. ROS Other: All systems not noted in ROS Statement are negative. Past Medical History Past Medical History: Asthma History of Any Multi-Drug Resistant Organisms: None Reported Past Surgical History: No Surgical Hx Reported Additional Past Surgical History / Comment(s): wisdom teeth Past Psychological History: Anxiety, Depression Smoking Status: Never smoker Past Alcohol Use History: None Reported Past Drug Use History: None Reported General Exam Limitations: no limitations Head exam: Present: atraumatic, normocephalic, normal inspection Eye exam: Present: normal appearance, PERRL, EOMI. Absent: scleral icterus, conjunctival injection, periorbital swelling ENT exam: Present: mucous membranes moist. Absent: normal exam, normal oroph arynx (Right upper there is noted to the extraction, mild pus and white discoloration, no drainable abscess there is tenderness over the localized area ) Neck exam: Present: normal inspection, full ROM. Absent: tenderness, meningismus, lymphadenopathy Respiratory exam: Present: normal lung sounds bilaterally. Absent: respiratory distress, wheezes, rales, rhonchi, stridor Cardiovascular Exam: Present: regular rate, normal rhythm, normal heart sounds. Absent: systolic murmur, diastolic murmur, rubs, gallop, clicks Course Vital Signs 10/30/18 09:39 Temperature 98.5 F Pulse Rate 90 Respiratory 18 Rate Blood Pressure 119/67 O2 Sat by Pulse 99 Oximetry Medical Decision Making - Medical Decision Making 23-year-old female presented for right upper dental pain. There is concern of possible underlying infection versus dry socket. Patient was placed on Pen-Vee K and follow-up with her dentist. Return parameters were discussed. Disposition Clinical Impression: Pain, dental, Dry tooth socket Disposition: HOME SELF-CARE Condition: Stable Instructions (If sedation given, give patient instructions): Dry Socket (ED) Additional Instructions: Please return to the Emergency Department if symptoms worsen or any other concerns. Prescriptions: Penicillin V Potassium [Pen Vee K] 500 mg PO QID #40 tablet Is patient prescribed a controlled substance at d/c from ED?: No Referrals: Braden Shea MD [Primary Care Provider] - 1-2 days Time of Disposition: 09:59
== END 2018-10-30 11:09 | disposition home or self-care (01) ==
LOC: EC 09:18
DX: K08.89 Other specified disorders of teeth and supporting structures (principal); M27.3 Alveolitis of jaws; Z91.018 Allergy to other foods; Z91.048 Other nonmedicinal substance allergy status
CPT/HCPCS: 99282

== ENCOUNTER 2018-12-14 12:50 | Outpatient (CLI) | payer OTHER ==
[2018-12-14] MEDS ORDERED: ONDANSETRON 4 MG/2 ML VIAL IVP STA (14:12)
[2018-12-14] MEDS ORDERED: DEXTROSE 5%-LACTATED RINGERS 1,000 ML IV SCH (14:15)
[2018-12-14] MEDS ORDERED: LACTATED RINGERS 1,000 ML IV ONE (14:15)
[2018-12-14] MEDS ORDERED: DEXTROSE 5%-LACTATED RINGERS 1,000 ML IV ONE (14:15)
[2018-12-14 15:28] LABS: Basophils % (A) 0 %; Eosinophils # (A) 0.2 k/uL (0-0.7); Eosinophils % (A) 1 %; HCT 37.7 % (34.0-46.0); HGB 12.6 gm/dL (11.4-16.0); Lymphocytes # (A) 0.5 k/uL (1.0-4.8); Lymphocytes % (A) 3 %; MCHC 33.5 g/dL (31.0-37.0); MCV 77.8 fL (80.0-100.0); Mean Platelet Volume 8.1; Monocytes # (A) 0.3 k/uL (0-1.0); Monocytes % (A) 2 %; Neutrophils # (A) 12.7 k/uL (1.3-7.7); Neutrophils % (A) 93 %; Platelet Count 271 k/uL (150-450); RBC 4.85 m/uL (3.80-5.40); RDW 15.1 % (11.5-15.5); WBC 13.8 k/uL (3.8-10.6)
[2018-12-14 15:29] LABS: African American GFR (CKD) >90 (>60 ml/min/1.73 sqM); Anion Gap 12 mmol/L; Blood Urea Nitrogen 8 mg/dL (7-17); Calcium 9.3 mg/dL (8.4-10.2); Carbon Dioxide 18 mmol/L (22-30); Chloride 109 mmol/L (98-107); Glucose 114 mg/dL (74-99); Potassium 4.1 mmol/L (3.5-5.1); Sodium 139 mmol/L (137-145)
[2018-12-14 15:43] LABS: Appearance,Urine Cloudy (Clear); Bacteria,Urine Rare /hpf; Bilirubin,Urine Negative (Negative); Blood,Urine Negative (Negative); Color,Urine Yellow; Glucose,Urine (UA) Negative (Negative); Ketones,Urine 1+ (Negative); Leukocyte Esterase,Urine Large (Negative); Mucus,Urine Occasional /hpf; Nitrite,Urine Negative (Negative); Protein,Urine 1+ (Negative); RBC,Urine 4 /hpf (0-5); Specific Gravity,Urine 1.021 (1.001-1.035); Squamous Epithelial Cell,Urine 13 /hpf (0-4)
[2018-12-14 18:39] VITALS: BP 114/66; PULSE 130; RESP 20; TEMP 98.1
--- NOTE | 2019-01-04 15:33 | P.MSEPDOC ---
Presenting Problems - Arrival Data Date of Arrival on Unit: 12/14/18 Time of Arrival on Unit: 13:50 Mode of Transport: Wheelchair - Complaint OB-Reason for Admission/Chief Complaint: Acute Nausea/Vomiting Comment: pt arrived from er per wheel chair with ob rn escort. pt assisted into bed in. triage 2. here with her mom. pt actively vomiting with bowl between her legs. yellow. liquid in bowl. pt states no one in the family has been sick. states she didnt eat anyting different. pt states sometime this late morning she awoke vomiting and it has been non stop since then. last fluids kept down were before bed last night. states has been eating normal prior that. pt has appt with Dr Abreu tomorrow Medical History - Information : 1 Para: 0 Term: 0 : 0 Abortions: Spontaneous or Elective: 0 Number of Living Children: 0 - Gestational Age Gestational Age by NICO (wks/days): 38 Weeks and 1 Days - History Comment: pt history of pelvic injury thus scheduled primary c/s. Cat 1 status, Review of Systems - Review of Systems Constitutional: No problems Breast: No problems ENT: No problems Cardiovascular: No problems Respiratory: No problems Gastrointestinal: Diarrhea Genitourinary: No problems Musculoskeletal: No problems Neurological: No problems Skin: No problems Comment: maternal heart rate initially up to 130s. came down to 90s with iv hydration Vital Signs - Temperature Temperature: 98.1 F Temperature Source: Oral - Pulse Right Pulse Rate: 130 Pulse Assessment Method: Automatic Cuff - Respirations Respiratory Rate: 20 Oxygen Delivery Method: Room Air - Blood Pressure Right Arm Blood Pressure: 114/66 Blood Pressure Mean: 82 Blood Pressure Source: Automatic Cuff Medical Screen Scoring (Pre) - Cervical Exam Dilation: Exam Deferred Effacement: Exam Deferred - Uterine Contractions Frequency: > 5 minutes apart = 1 Duration: N/A Intensity: N/A - Maternal Vital Signs Maternal Temperature: N/A Maternal Blood Pressure: N/A Signs of Preeclampsia: Nausea/Vomiting = 1 Maternal Respirations: N/A - Maternal Trauma Maternal Trauma: N/A - Assessment - Baby A Baseline FHR: 140 Heart Rate - NICHD Category: Category I (Normal) = 0 NST: Reactive Position: N/A Station: N/A - Total Score - Baby A Total Score - Baby A: 2 - Total Score - Baby B Total Score - Baby B: 2 - Total Score - Baby C Total Score - Baby C: 2 - Level of Risk - Baby A Level of Risk - Baby A: Low (0-5) - Level of Risk - Baby B Level of Risk - Baby B: Low (0-5) - Level of Risk - Baby C Level of Risk - Baby C: Low (0-5) Physician Notification (Pre) - Physician Notified Physician Notified Date: 12/14/18 Physician Notified Time: 13:54 Physician/Practitioner Notifed:: Dr Anderson New Order Received: Yes - Notification Comment Comment: [id number] Dr Anderson updated with pts reason for visit, vomiting, vitals, reactive NST. orders received for IV Fluid boluses, zofran. call with results. [id number] Dr Anderson updated with lab results. all abnormals reported. including occasional. contractions, no vomiting last 45 min, pt history of pelvic injury thus scheduled. primary c/s. Cat 1 status, pts current vitals including heart rate 98-115 at rest. 1st liter iv fluid in second to start. Dr sosa give the zofran and second liter iv. fluid the pt may discharge if her heart rate is below 100. will call if heart rate. remains elevated. no vag exam to be done per dr anderson's order Disposition - Disposition OB Disposition: Physician follow up in office, Discharge to home Discharge Date: 12/14/18 Discharge Time: 17:45 I agree with the RN Medical Screening Exam: Yes Risk & Benefit of care provided described in d/c instruction: Yes Diagnosis: LATE VOMITING OF
== END 2018-12-14 17:45 | disposition home or self-care (01) ==
LOC: FBPOP 12:50
PROVIDERS: ATTEND Obstetrics & Gynecology
DX: O21.2 Late vomiting of pregnancy (principal); Z3A.38 38 weeks gestation of pregnancy
CPT/HCPCS: 59025; 96360; 96361; 96375; 80048; 85025; 81001; 87086; 87077; 87186; G0463; J2405; 99214

== ENCOUNTER 2018-12-20 05:45 | Inpatient (IN) | payer OTHER ==
[2018-12-20] MEDS ORDERED: ceFAZolin 3 GM in SODIUM CHLORIDE 0.9% 100 ML IVPB ONE (06:03)
[2018-12-20] MEDS ORDERED: LACTATED RINGERS 1,000 ML IV ONE (06:03)
[2018-12-20] MEDS ORDERED: CITRIC ACID-SODIUM CITRATE 15 ML CUP PO ONE (06:03)
[2018-12-20 06:12] VITALS: BMI 47.7
[2018-12-20 06:15] LABS: Basophils % (A) 0 %; Eosinophils # (A) 0.3 k/uL (0-0.7); Eosinophils % (A) 4 %; HCT 33.8 % (34.0-46.0); HGB 11.1 gm/dL (11.4-16.0); Lymphocytes % (A) 22 %; MCH 25.2 pg (25.0-35.0); MCHC 32.7 g/dL (31.0-37.0); MCV 77.1 fL (80.0-100.0); Mean Platelet Volume 7.9; Monocytes # (A) 0.4 k/uL (0-1.0); Monocytes % (A) 5 %; Neutrophils # (A) 6.2 k/uL (1.3-7.7); Neutrophils % (A) 67 %; Platelet Count 287 k/uL (150-450); RBC 4.38 m/uL (3.80-5.40); RDW 14.7 % (11.5-15.5); WBC 9.1 k/uL (3.8-10.6)
[2018-12-20] MEDS ORDERED: MORPHINE SULFATE (PF) 0.3 MG/0.3 ML SYR ONE (08:08)
[2018-12-20] MEDS ORDERED: KETOROLAC 30 MG/ML 1 ML VIAL ONE (08:08)
[2018-12-20] MEDS ORDERED: LACTATED RINGERS 1,000 ML BAG IV ONE (08:08)
[2018-12-20] MEDS ORDERED: NALBUPHINE 10 MG/ML (1 ML AMP) ONE (08:08)
[2018-12-20] MEDS ORDERED: OXYTOCIN 10 UNIT/ML 1 ML VIAL ONE (08:08)
[2018-12-20] MEDS ORDERED: ONDANSETRON 4 MG/2 ML VIAL ONE (08:08)
[2018-12-20] MEDS ORDERED: NALOXONE 0.4 MG/ML 1 ML VIAL IV PRN (08:56)
[2018-12-20] MEDS ORDERED: diphenhydrAMINE 50 MG/ML 1 ML VIAL IVP PRN ×2 (08:56)
[2018-12-20] MEDS ORDERED: ACETAMINOPHEN TAB 325 MG TAB PO PRN (08:56)
[2018-12-20] MEDS ORDERED: SIMETHICONE 80 MG CHEWABLE PO PRN (08:56)
[2018-12-20] MEDS ORDERED: diphenhydrAMINE 25 MG CAP PO PRN (08:56)
[2018-12-20] MEDS ORDERED: ONDANSETRON 4 MG/2 ML VIAL IVP PRN (08:56)
[2018-12-20] MEDS ORDERED: diphenhydrAMINE 50 MG CAP PO PRN (08:56)
[2018-12-20] MEDS ORDERED: METOCLOPRAMIDE 5 MG/ML 2 ML VIAL IVP PRN (08:56)
[2018-12-20] MEDS ORDERED: ZOLPIDEM 5 MG TAB PO PRN (08:56)
[2018-12-20] MEDS ORDERED: HYDROcodone/APAP 5-325MG 1 EACH TAB PO PRN (08:56)
[2018-12-20] MEDS ORDERED: OXYTOCIN 20 UNITS/1000 ML NS 1,000 ML IV SCH (09:00)
--- NOTE | 2018-12-20 09:01 | P.HPOB ---
History of Present Illness H&P Date: 12/20/18 Chief Complaint: 39-0/7 weeks, history of pelvic fracture The patient is a 23-year-old 1 para 0 admitted at 39-0/7 weeks as established by 9 week ultrasound. She is admitted for primary low-transverse section secondary to a history of significant pelvic fracture and desire to avoid any further pelvic damage. Her has been essentially uncomplicated though she was found to be group B strep positive with a positive urine culture. She additionally is morbidly obese. On labor and delivery, all signs reassuring. Obstetrical history: 1 para 0 with current statistics listed in history of present illness. EDC of 12/27/2018 was established by 9 week ultrasound. Laboratory workup demonstrates a blood type of B+ with a negative antibody screen. Rubella status is immune. The remainder of the laboratory workup was within normal limits early Glucola was within normal limits as was second trimester Glucola. Group B strep status is positive from early urine culture. Gynecologic history: Unremarkable with no history of any infections to include STDs. Review of Systems Review of systems is confined to history of present illness. Past Medical History Past Medical History: Asthma Additional Past Medical History / Comment(s): fx pelvis 2009, History of Any Multi-Drug Resistant Organisms: None Reported Past Surgical History: No Surgical Hx Reported Additional Past Surgical History / Comment(s): wisdom teeth Past Anesthesia/Blood Transfusion Reactions: No Reported Reaction Past Psychological History: Anxiety, Depression Smoking Status: Never smoker Past Alcohol Use History: None Reported Past Drug Use History: None Reported Additional Drug Use History / Comment(s): past marijuana use - Past Family History Mother Family Medical History: Diabetes Mellitus Medications and Allergies Home Medications Medication Instructions Recorded Confirmed Type Pop-Royi-Pjlsb Acid 1 cap PO DAILY 07/09/18 12/20/18 History [-U Capsule] Allergies Allergy/AdvReac Type Severity Reaction Status Date / Time grass pollen Allergy Rash/Hives Verified 12/20/18 06:02 onion Allergy Anaphylaxis Verified 12/20/18 06:02 Exam Vital Signs Temp Pulse Resp BP Pulse Ox 12/20/18 06:05 97.0 F L 90 16 119/72 98 In general, this is a well-developed, morbidly obese female in no acute distress. Her heart has a regular rhythm and rate without murmur. Her lungs are clear to auscultation bilaterally in all crandall. Her abdomen is obese, nondistended, gravid, has normal active bowel sounds, is soft, nontender, without any palpable masses aside from uterine fundus. Her extremities are without any cyanosis, clubbing, or edema and are nontender to palpation bilaterally. Digital cervical examination is deferred. Results Result Diagrams: 12/20/18 06:01 Abnormal Lab Results - Last 24 Hours (Table) 12/20/18 Range/Units 06:01 Hgb 11.1 L (11.4-16.0) gm/dL Hct 33.8 L (34.0-46.0) % MCV 77.1 L (80.0-100.0) fL Assessment and Plan (1) History of pelvic fracture Current Visit: Yes Status: Acute Code(s): Z87.81 - PERSONAL HISTORY OF (HEALED) TRAUMATIC FRACTURE SNOMED Code(s): 252235022 (2) Term Current Visit: Yes Status: Acute Code(s): Z34.90 - ENCNTR FOR SUPRVSN OF NORMAL , UNSP, UNSP TRIMESTER SNOMED Code(s): 87335666 Plan: The patient has expressed desire to do no further damage to the pelvis which is previously been severely injured appeared she has requested primary low-tr ansverse section and I have agreed. The risks and complications the procedure have been thoroughly discussed and she has understood and agreed to proceed.
--- NOTE | 2018-12-20 09:07 | P.OP ---
Date of Procedure: 12/20/18 Preoperative Diagnosis: #1. 39-0/7 weeks intrauterine #2. History of significant pelvic fracture Postoperative Diagnosis: Same Procedure(s) Performed: #1. Primary low-transverse section Anesthesia: spinal Surgeon: Frankie Abreu [employer] Blower #1: Agustina Anderson Estimated Blood Loss (ml): 600 IV fluids (ml): 1,000 Urine output (ml): 600 Pathology: none sent Condition: stable Disposition: floor Operative Findings: The patient was taken the operating room where she was delivered of a viable 6 lbs. 9 oz. baby girl with Apgars of 8 at 1 minute and 9 at 5 minutes delivered in the left occiput posterior position. There was a loose nuchal cord 1 which was reduced following delivery of the infant. The placenta was delivered manually, intact, and grossly normal with a grossly normal three-vessel cord. The uterus, tubes, and ovaries were entirely normal to inspection. Description of Procedure: The patient was prepped and draped in usual fashion after spinal anesthesia was administered by the anesthesiologist. A Pfannenstiel incision was made and extended and the abdominal cavity without difficulty though the abdominal wall thickness was approximately 8 cm. The bladder peritoneum was noted to be significant the distal to the intended site of incision was left intact. A 2 cm incision was made in the transverse plane of the lower uterine segment to enter the uterus at which time clear fluid was noted. The incision was extended in both directions using the bandage scissors. The head was delivered up and through the wound where the nose and mouth were thoroughly suctioned. Remainder of the infant was delivered onto the field where the nuchal cord was reduced. The cord was doubly clamped, cut, and the passed resuscitative measures with weight and Apgars as noted above. A segment of cord was doubly clamped, cut, and set aside should cord gases become necessary. The placenta was delivered manually and intact as noted above. The uterus was exteriorized and the interior cavity of the uterus was swept of any remaining placental or membranous fragments. The margins of the incision were grasped with Canales clamps and the incision closed in 2 layers. The first layer was a running locking stitch of 0 chromic catgut followed by a running imbricating stitch of 0 chromic catgut, each from margin to margin. Hemostasis appeared to be excellent. The posterior cul-de-sac was suctioned using a guard and the uterus replaced within the abdominal cavity. The gutters were swept of any remaining blood, fluid, or clot. The incision was reexamined and found to be hemostatic. The parietal peritoneum was loosely reapproximated and layer of muscles made hemostatic with the Bovie. The fascia was closed with 2 running stitches of 0 Vicryl proceeding from the lateral margins to the midpoint. The subcutaneous tissues were irrigated, made hemostatic with the Bovie, and reapproximated with a running subcuticular stitch of 3-0 plain catgut. The skin was reapproximated with a running subcuticular stitch of 4-0 Vicryl followed by half-inch Steri- Strips placed with Mastisol. Estimated blood loss for the case is approximately 600 mL. There were no complications. All sponge, instrument, and needle counts were correct. The patient tolerated the procedure well and proceeded to the recovery room in stable condition. Both mother and infant are resting comfortably in recovery.
[2018-12-20] MEDS: LACTATED RINGERS 1,000 ML IV SCH ×2 (14:24→14:25)
[2018-12-20] MEDS: KETOROLAC 30 MG/ML 1 ML VIAL IVP PRN (19:42)
[2018-12-20] MEDS: SENNOSIDES-DOCUSATE SODIUM 1 EACH TAB PO SCH (19:42)
[2018-12-21] MEDS: LACTATED RINGERS 1,000 ML IV SCH (04:02)
[2018-12-21] MEDS: KETOROLAC 30 MG/ML 1 ML VIAL IVP PRN (06:11)
--- NOTE | 2018-12-21 07:16 | P.PN ---
Progress Note - Text Date:[12/21/2018] Time:[0713] The patient is status post section Vital signs stable VAS:[0-10] Patient has no complaints of pain. The patient incurred some minimal itching yesterday, this itching is now subsiding. Pain meds to be managed by service.
[2018-12-21 07:20] LABS: Basophils % (A) 0 %; Eosinophils # (A) 0.3 k/uL (0-0.7); Eosinophils % (A) 3 %; HCT 32.7 % (34.0-46.0); HGB 10.3 gm/dL (11.4-16.0); Lymphocytes # (A) 1.4 k/uL (1.0-4.8); Lymphocytes % (A) 15 %; MCH 24.5 pg (25.0-35.0); MCHC 31.5 g/dL (31.0-37.0); Mean Platelet Volume 8.2; Monocytes # (A) 0.4 k/uL (0-1.0); Monocytes % (A) 4 %; Neutrophils # (A) 7.3 k/uL (1.3-7.7); Neutrophils % (A) 76 %; Platelet Count 234 k/uL (150-450); RBC 4.19 m/uL (3.80-5.40); RDW 14.6 % (11.5-15.5); WBC 9.6 k/uL (3.8-10.6)
--- NOTE | 2018-12-21 08:53 | P.PNOBGPC ---
Subjective - Subjective Patient reports: Reports appetite normal, Reports voiding normally, Reports pain well controlled, Reports ambulating normally : doing well Objective - Vital Signs Latest vital signs: Vital Signs Temp Pulse Pulse Resp BP Pulse Ox 12/21/18 04:00 98.3 F 70 16 104/60 100 12/21/18 00:00 98.3 F 69 18 117/67 98 12/20/18 20:00 97.9 F 68 18 124/65 98 12/20/18 15:30 97.7 F 78 16 109/72 99 12/20/18 11:00 59 L 17 119/69 12/20/18 10:31 56 L 17 112/67 12/20/18 10:00 59 L 16 109/75 100 12/20/18 09:44 59 L 17 109/72 12/20/18 09:30 64 16 107/70 99 12/20/18 09:15 68 17 96/66 97 12/20/18 09:00 97.0 F L 70 17 106/60 98 Intake and Output 12/20/18 12/21/18 12/21/18 22:59 06:59 14:59 Intake Total 1000 Output Total 1000 800 Balance 0 -800 Intake: Intake, IV Titration 1000 Amount Lactated Ringers 1,000 ml 1000 @ 125 mls/hr IV .Q8H [facility] Rx#:[id number] Output: Urine 1000 800 Uretheral (Milligan) 1000 Other: # Voids 1 - Exam Extremities: Present: normal Abdomen: Present: normal appearance, soft. Absent: distention, tenderness Incision: Present: normal, dry, intact Uterus: Present: normal, firm (The uterine fundus is tonic and nontender just below the umbilicus.) - Labs Labs: Abnormal Lab Results - Last 24 Hours (Table) 12/21/18 Range/Units 06:53 Hgb 10.3 L (11.4-16.0) gm/dL Hct 32.7 L (34.0-46.0) % MCV 78.0 L (80.0-100.0) fL MCH 24.5 L (25.0-35.0) pg Assessment and Plan (1) History of pelvic fracture Current Visit: Yes Status: Acute Code(s): Z87.81 - PERSONAL HISTORY OF (HEALED) TRAUMATIC FRACTURE SNOMED Code(s): 788790464 (2) Term Current Visit: Yes Status: Acute Code(s): Z34.90 - ENCNTR FOR SUPRVSN OF NORMAL , UNSP, UNSP TRIMESTER SNOMED Code(s): 80231388 (3) S/P section Current Visit: Yes Status: Acute Code(s): Z98.891 - HISTORY OF UTERINE SCAR FROM PREVIOUS SURGERY SNOMED Code(s): 018545894 Plan: Continue routine postoperative care. I would anticipate discharge home tomorrow pending no complications. I have strongly encouraged the patient ambulate in the hallways at least 4 times daily.
[2018-12-21] MEDS: SENNOSIDES-DOCUSATE SODIUM 1 EACH TAB PO SCH ×2 (11:04→20:37)
[2018-12-21] MEDS: HYDROcodone/APAP 7.5-325MG 1 EACH TAB PO PRN ×2 (12:32→18:58)
[2018-12-21] MEDS: IBUPROFEN 600 MG TAB PO PRN ×2 (17:20→23:36)
[2018-12-22] MEDS: SENNOSIDES-DOCUSATE SODIUM 1 EACH TAB PO SCH (07:57)
--- NOTE | 2018-12-22 08:34 | P.DS ---
Providers Date of admission: 12/20/18 05:45 Expected date of discharge: 12/22/18 Attending physician: Frankie Abreu Primary care physician: Stated None - Discharge Diagnosis(es) (1) History of pelvic fracture Current Visit: Yes Status: Acute (2) Term Current Visit: Yes Status: Acute (3) S/P section Current Visit: Yes Status: Acute Hospital Course: The patient is a 23-year-old 1 para 0 admitted at 39-0/7 weeks for primary low-transverse section secondary to history of a significant the pelvic fracture in the past and the patient's desire to avoid further damage. Her was essentially uncomplicated aside from morbid obesity. Group B strep status was positive. She was taken the operating room where she was delivered of a viable 6 lbs. 9 oz. baby girl with Apgars of 8 at 1 minute and 9 at 5 minutes and on top acute fashion. Her postoperative course was unremarkable with vital signs being stable and her temperature was afebrile throughout. She was deemed stable for discharge on post heart and postoperative day #2. She was discharged home to follow-up in the office in 2 weeks for an incision check and 6 weeks routinely. Discharge instructions included calling for any significantly increased bleeding or foul-smelling lochia, significantly increased fever abdominal pain, perineal complaints, breast complaints, incisional complaints, or anything else that concerned her. She is additionally instructed to have nothing in the vagina for at least 6 weeks time to include intercourse. She understood her instructions and agrees to follow up as noted above. Discharge medications included [id number] analgesic pain medications as well as a prescription for [place]go 5/325 mg, 1-2 by mouth every 6 hours when necessary pain, #20 dispensed with no refills. Maternal blood type is B+ and rubella status is immune. Discharge hemoglobin and hematocrit were 10.3 and 32.7 respectively. Procedures: #1. Primary low-transverse section Patient Condition at Discharge: Stable Plan - Discharge Summary Discharge Rx Participant: Yes New Discharge Prescriptions: No Action Dye-Atmt-Sxthw Acid [-U Capsule] 1 cap PO DAILY Discharge Medication List Qup-Anhw-Lkeif Acid [-U Capsule] 1 cap PO DAILY 07/09/18 [History] Follow up Appointment(s)/Referral(s): Frankie Abreu MD [STAFF PHYSICIAN] - 2 Weeks Discharge Disposition: HOME SELF-CARE
[2018-12-22 09:35] VITALS: BP 80/51; PULSE 73; RESP 18; TEMP 98
[2018-12-22] MEDS: IBUPROFEN 600 MG TAB PO PRN (15:03)
== END 2018-12-22 17:31 | disposition home or self-care (01) | DRG 788 ==
LOC: 4FBP 05:45
PROVIDERS: ADMIT Obstetrics & Gynecology; ATTEND Obstetrics & Gynecology
PROC: 10D00Z1 Extraction of Products of Conception, Low, Open Approach (ICD-10-PCS; principal; 2018-12-20 08:00)
DX: O69.81X0 Labor and delivery complicated by cord around neck, without compression, not applicable or unspecified (principal); E66.01 Morbid (severe) obesity due to excess calories; O99.214 Obesity complicating childbirth; O99.824 Streptococcus B carrier state complicating childbirth; O99.52 Diseases of the respiratory system complicating childbirth; O99.344 Other mental disorders complicating childbirth; F32.9 Major depressive disorder, single episode, unspecified; F41.9 Anxiety disorder, unspecified; J45.909 Unspecified asthma, uncomplicated; Z37.0 Single live birth; Z3A.39 39 weeks gestation of pregnancy; Z87.81 Personal history of (healed) traumatic fracture; Z91.018 Allergy to other foods; Z91.048 Other nonmedicinal substance allergy status; Z83.3 Family history of diabetes mellitus
CPT/HCPCS: 85025; 86850; 86900; 86901

== ENCOUNTER 2019-02-01 21:17 | Emergency (ER) | payer OTHER ==
[2019-02-01] MEDS ORDERED: traMADol 50 MG TAB PO STA (22:50)
--- NOTE | 2019-02-01 22:56 | ED ---
Headache HPI - General Chief Complaint: Headache Stated Complaint: Fever, Headache Time Seen by Provider: 02/01/19 21:43 Mode of arrival: ambulatory Limitations: no limitations - History of Present Illness Initial Comments: This patient is 23-year-old woman who presents to be evaluated for headache after she fell on stairs. The patient states that less than 1 hour before arriv al here, she was going to walk down stairs, states she "tripped over her own feet," and then tumbled on stairs. She did not have any loss of consciousness. She states that the pain is right sided, severe, constant and is aching in character. She did try taking some ibuprofen but did not notice any change. She has noticed that the pain is a little worse with bright lights, and with noises. The patient denies any other injury, including no neck, back, chest, abdomen or extremity pains. She has not noted any neurologic symptoms. No nausea or vomiting. MD Complaint: headache Onset/Timin -: hour(s) Onset Description: sudden Location: right, frontal, temporal Severity: severe Quality: aching Consistency: constant Worsens With: none Context: other Treatments Prior to Arrival: Ibuprofen - Related Data Home Medications Medication Instructions Recorded Confirmed No Known Home Medications 02/01/19 02/01/19 Allergies Allergy/AdvReac Type Severity Reaction Status Date / Time grass pollen Allergy Rash/Hives Verified 02/01/19 22:11 onion Allergy Anaphylaxis Verified 02/01/19 22:11 Review of Systems ROS Statement: Those systems with pertinent positive or pertinent negative responses have been documented in the HPI. ROS Other: All systems not noted in ROS Statement are negative. Constitutional: Denies: weakness Eyes: Denies: eye pain, vision change ENT: Denies: ear pain, hearing loss, epistaxis Respiratory: Denies: cough, dyspnea Cardiovascular: Denies: chest pain, syncope Gastrointestinal: Denies: nausea, vomiting Musculoskeletal: Denies: back pain Neurological: Reports: as per HPI, headache. Denies: weakness, numbness, paresthesias, confusion, abnormal gait Hematological/Lymphatic: Denies: easy bleeding Past Medical History Past Medical History: Asthma Additional Past Medical History / Comment(s): fx pelvis 2009, History of Any Multi-Drug Resistant Organisms: None Reported Past Surgical History: No Surgical Hx Reported Additional Past Surgical History / Comment(s): wisdom teeth Past Anesthesia/Blood Transfusion Reactions: No Reported Reaction Past Psychological History: Anxiety, Depression Smoking Status: Never smoker Past Alcohol Use History: None Reported Past Drug Use History: None Reported - Past Family History Mother Family Medical History: Diabetes Mellitus General Exam Limitations: no limitations General appearance: alert, in no apparent distress Head exam: Present: atraumatic, normocephalic Eye exam: Present: normal appearance, EOMI. Absent: scleral icterus, conjunctiv al injection, nystagmus ENT exam: Present: normal oropharynx, TM's normal bilaterally, normal external ear exam Neck exam: Present: normal inspection, full ROM. Absent: tenderness Respiratory exam: Present: normal lung sounds bilaterally. Absent: respiratory distress, wheezes, rales, rhonchi, stridor, chest wall tenderness Cardiovascular Exam: Present: regular rate, normal rhythm, normal heart sounds. Absent: systolic murmur, diastolic murmur, rubs, gallop GI/Abdominal exam: Present: soft. Absent: tenderness, guarding, rebound Extremities exam: Present: normal inspection Back exam: Present: normal inspection. Absent: CVA tenderness (R), CVA tenderness (L), vertebral tenderness Neurological exam: Present: alert, oriented X3, CN II-XII intact. Absent: motor sensory deficit Skin exam: Present: warm, dry, intact, normal color. Absent: rash Course Vital Signs 02/01/19 21:30 Temperature 98.1 F Pulse Rate 68 Respiratory 20 Rate Blood Pressure 112/76 O2 Sat by Pulse 95 Oximetry Disposition Clinical Impression: Head injury Disposition: HOME SELF-CARE Condition: Good Instructions (If sedation given, give patient instructions): Head Injury (ED) Is patient prescribed a controlled substance at d/c from ED?: No Referrals: Braden Shea MD [Primary Care Provider] - 1-2 days
--- NOTE | 2019-02-01 23:50 | CT ---
EXAM: CT Head Without Intravenous Contrast CLINICAL HISTORY: Fever, headache TECHNIQUE: Axial computed tomography images of the head/brain without intravenous contrast. DLP is 1082.4 mGy-cm. This CT exam was performed using one or more of the following dose reduction techniques: automated exposure control, adjustment of the mA and/or kV according to patient size, and/or use of iterative reconstruction technique. Coronal and sagittal reconstructions are performed COMPARISON: 02/16/18 FINDINGS: Brain: Unremarkable. No hemorrhage. No significant white matter disease. No edema. Ventricles: Unremarkable. No ventriculomegaly. Bones/joints: Unremarkable. No acute fracture. Soft tissues: Unremarkable. Sinuses: Unremarkable as visualized. No acute sinusitis. Mastoid air cells: Unremarkable as visualized. No mastoid effusion. IMPRESSION: No acute intracranial findings or substantial change
[2019-02-02 00:52] VITALS: BP 115/80; PULSE 72; RESP 18; TEMP 97.9
== END 2019-02-02 00:52 | disposition home or self-care (01) ==
LOC: EC 21:17
DX: S09.90XA Unspecified injury of head, initial encounter (principal); Z91.018 Allergy to other foods; W10.9XXA Fall (on) (from) unspecified stairs and steps, initial encounter
CPT/HCPCS: 70450; 99284

== ENCOUNTER 2019-06-28 09:27 | Emergency (ER) | payer OTHER ==
[2019-06-28 09:38] VITALS: RESP 18; TEMP 97.8
[2019-06-28] MEDS ORDERED: ONDANSETRON 4 MG/2 ML VIAL IVP STA (09:55)
[2019-06-28] MEDS ORDERED: SODIUM CHLORIDE 0.9% 1,000 ML IV STA ×2 (09:55)
--- NOTE | 2019-06-28 09:56 | ED ---
General Adult HPI - General Chief complaint: Abdominal Pain Stated complaint: vomiting, abd pain Time Seen by Provider: 06/28/19 09:47 Source: patient, RN notes reviewed, old records reviewed Mode of arrival: ambulatory - History of Present Illness Initial comments: 23-year-old female presents today for eval for concern for nausea and vomiting abdominal pain. Patient reports symptoms started this morning. She's had a similar episode earlier this month. Patient denies any associated fevers or chills. She denies any changes in urination or back pain. She denies any chanc e of . Last menstrual period was partially one week ago. Denies any history of sick contacts. - Related Data Previous Rx's Medication Instructions Recorded Ondansetron Odt [Zofran Odt] 4 mg PO Q8HR PRN #12 tab 06/28/19 Pantoprazole [Protonix] 40 mg PO DAILY #12 tablet. 06/28/19 Allergies Allergy/AdvReac Type Severity Reaction Status Date / Time grass pollen Allergy Rash/Hives Verified 06/28/19 09:38 onion Allergy Anaphylaxis Verified 06/28/19 09:38 Review of Systems ROS Statement: Those systems with pertinent positive or pertinent negative responses have been documented in the HPI. ROS Other: All systems not noted in ROS Statement are negative. Past Medical History Past Medical History: Asthma Additional Past Medical History / Comment(s): fx pelvis 2009, History of Any Multi-Drug Resistant Organisms: None Reported Past Surgical History: No Surgical Hx Reported, Section Additional Past Surgical History / Comment(s): wisdom teeth Past Anesthesia/Blood Transfusion Reactions: No Reported Reaction Past Psychological History: Anxiety, Depression Smoking Status: Never smoker Past Alcohol Use History: None Reported Past Drug Use History: None Reported - Past Family History Mother Family Medical History: Diabetes Mellitus General Exam - General Exam Comments Initial Comments: Alert and oriented 23-year-old female. No distress. General: Well appearing, well nourished, in no distress. Oriented x 3, normal mood and affect . Ambulating without difficulty. Skin: Good turgor, no rash, unusual bruising or prominent lesions Hair: Normal texture and distribution. HEENT: Head: Normocephalic, atraumatic, no visible or palpable masses, depressions, or scaring. Eyes: Visual acuity intact, conjunctiva clear, sclera non-icteric, EOM intact, PERRL. Ears: EACs clear, TMs translucent & cone of light visualized. hearing intact. Nose: No external lesions, mucosa non-inflamed, septum and turbinates normal Mouth: Mucous membranes moist, no mucosal lesions. Teeth/Gums: No obvious caries or periodontal disease. No gingival inflammation or significant resorption. Pharynx: Mucosa non-inflamed, no tonsillar hypertrophy or exudate Neck: Supple, without lesions, bruits, or adenopathy, thyroid non-enlarged and non-tender Heart: No cardiomegaly or thrills; regular rate and rhythm, no murmur or gallop Lungs: Clear to auscultation and percussion Abdomen: Bowel sounds normal, no tenderness, organomegaly, masses, or hernia Back: Spine normal without deformity or tenderness, no CVA tenderness Extremities: No amputations or deformities, cyanosis, edema or varicosities, peripheral pulses intact Musculoskeletal: Normal gait and station. No misalignment, asymmetry, crepitation, defects, tenderness, masses, effusions, decreased range of motion, instability, atrophy or abnormal strength or tone in the head, neck, spine, ribs, pelvis or extremities. Neurologic: CN 2-12 normal. Sensation to pain, touch, and proprioception normal. DTRs normal in upper and lower extremities. No pathologic reflexes. Psychiatric: Oriented X3, intact recent and remote memory, judgment and insight, normal mood and affect. Course Vital Signs 06/28/19 09:35 Temperature 97.8 F Pulse Rate 113 H Respiratory 18 Rate Blood Pressure 103/77 O2 Sat by Pulse 97 Oximetry Medical Decision Making - Medical Decision Making 23-year-old female presents emergency department today for evaluation for concern for nausea vomiting, diarrhea episodes starting today. Patient did have some episodes of diarrhea emergency room. No antibiotics she has no abdominal tenderness. Discussed likely viral or foodborne gastroenteritis. Patient advised to be discharged with Protonix and Zofran. Discussed to have a clear liquid diet for the next 1-2 days. Discussed return parameters and following up with primary care doctor. SENSORY ANSWERED. RETURN PARAMETERS WERE DISCUSSED. - Lab Data Result diagrams: 06/28/19 10:06 06/28/19 10:06 Lab Results 06/28/19 06/28/19 06/28/19 Range/Units 10:06 10:06 10:06 WBC 7.8 (3.8-10.6) k/uL RBC 5.28 (3.80-5.40) m/uL Hgb 13.5 (11.4-16.0) gm/dL Hct 41.7 (34.0-46.0) % MCV 79.1 L (80.0-100.0) fL MCH 25.6 (25.0-35.0) pg MCHC 32.4 (31.0-37.0) g/dL RDW 13.6 (11.5-15.5) % Plt Count 251 (150-450) k/uL Neutrophils % 66 % Lymphocytes % 16 % Monocytes % 5 % Eosinophils % 11 % Basophils % 1 % Neutrophils # 5.1 (1.3-7.7) k/uL Lymphocytes # 1.2 (1.0-4.8) k/uL Monocytes # 0.4 (0-1.0) k/uL Eosinophils # 0.8 H (0-0.7) k/uL Basophils # 0.1 (0-0.2) k/uL Sodium 142 (137-145) mmol/L Potassium 4.2 (3.5-5.1) mmol/L Chloride 109 H (98-107) mmol/L Carbon Dioxide 22 (22-30) mmol/L Anion Gap 11 mmol/L BUN 10 (7-17) mg/dL Creatinine 0.93 (0.52-1.04) mg/dL Est GFR (CKD-EPI)AfAm >90 (>60 ml/min/1.73 sqM) Est GFR (CKD-EPI)NonAf 88 (>60 ml/min/1.73 sqM) Glucose 106 H (74-99) mg/dL Calcium 9.5 (8.4-10.2) mg/dL Total Bilirubin 0.7 (0.2-1.3) mg/dL AST 18 (14-36) U/L ALT 12 (4-34) U/L Alkaline Phosphatase 85 (38-126) U/L Total Protein 7.4 (6.3-8.2) g/dL Albumin 4.4 (3.5-5.0) g/dL Amylase 63 (30-110) U/L Lipase 150 (23-300) U/L Urine Color Yellow Urine Appearance Cloudy H (Clear) Urine pH 5.5 (5.0-8.0) Ur Specific [place] 1.016 (1.001-1.035) Urine Protein Negative (Negative) Urine Glucose (UA) Negative (Negative) Urine Ketones Negative (Negative) Urine Blood Negative (Negative) Urine Nitrite Negative (Negative) Urine Bilirubin Negative (Negative) Urine Urobilinogen <2.0 (<2.0) mg/dL Ur Leukocyte Esterase Moderate H (Negative) Urine RBC 2 (0-5) /hpf Urine WBC 7 H (0-5) /hpf Ur Squamous Epith Cells 12 H (0-4) /hpf Urine Bacteria Occasional H (None) /hpf Urine Mucus Rare H (None) /hpf Urine Yeast (Budding) Occasional H (None) /hpf Urine HCG, Qual (Not Detectd) 06/28/19 Range/Units 10:06 WBC (3.8-10.6) k/uL RBC (3.80-5.40) m/uL Hgb (11.4-16.0) gm/dL Hct (34.0-46.0) % MCV (80.0-100.0) fL MCH (25.0-35.0) pg MCHC (31.0-37.0) g/dL RDW (11.5-15.5) % Plt Count (150-450) k/uL Neutrophils % % Lymphocytes % % Monocytes % % Eosinophils % % Basophils % % Neutrophils # (1.3-7.7) k/uL Lymphocytes # (1.0-4.8) k/uL Monocytes # (0-1.0) k/uL Eosinophils # (0-0.7) k/uL Basophils # (0-0.2) k/uL Sodium (137-145) mmol/L Potassium (3.5-5.1) mmol/L Chloride (98-107) mmol/L Carbon Dioxide (22-30) mmol/L Anion Gap mmol/L BUN (7-17) mg/dL Creatinine (0.52-1.04) mg/dL Est GFR (CKD-EPI)AfAm (>60 ml/min/1.73 sqM) Est GFR (CKD-EPI)NonAf (>60 ml/min/1.73 sqM) Glucose (74-99) mg/dL Calcium (8.4-10.2) mg/dL Total Bilirubin (0.2-1.3) mg/dL AST (14-36) U/L ALT (4-34) U/L Alkaline Phosphatase (38-126) U/L Total Protein (6.3-8.2) g/dL Albumin (3.5-5.0) g/dL Amylase (30-110) U/L Lipase (23-300) U/L Urine Color Urine Appearance (Clear) Urine pH (5.0-8.0) Ur Specific [place] (1.001-1.035) Urine Protein (Negative) Urine Glucose (UA) (Negative) Urine Ketones (Negative) Urine Blood (Negative) Urine Nitrite (Negative) Urine Bilirubin (Negative) Urine Urobilinogen (<2.0) mg/dL Ur Leukocyte Esterase (Negative) Urine RBC (0-5) /hpf Urine WBC (0-5) /hpf Ur Squamous Epith Cells (0-4) /hpf Urine Bacteria (None) /hpf Urine Mucus (None) /hpf Urine Yeast (Budding) (None) /hpf Urine HCG, Qual Not Detected (Not Detectd) 06/28/19 10:39 EKG shows sinus bradycardia, otherwise normal EKG. Ventricular rate of 55 bpm. The IA interval is 150 ms. QRS duration is 80 ms. QT QTc is 422/43 ms. Disposition Clinical Impression: Gastroenteritis Disposition: HOME SELF-CARE Condition: Good Instructions (If sedation given, give patient instructions): Gastroenteritis (ED) Additional Instructions: Please use medication as discussed. Patient should've a clear liquid diet. Please follow up with family doctor if symptoms have not improved over the next two days. Please return to the emergency room if your symptoms increase or worsen or for any other concerns. Prescriptions: Pantoprazole [Protonix] 40 mg PO DAILY #12 tablet. Ondansetron Odt [Zofran Odt] 4 mg PO Q8HR PRN #12 tab PRN Reason: Nausea Is patient prescribed a controlled substance at d/c from ED?: No Referrals: Braden Shea MD [Primary Care Provider] - 1-2 days Time of Disposition: 11:32
[2019-06-28 10:30] LABS: Basophils # (A) 0.1 k/uL (0-0.2); Basophils % (A) 1 %; Eosinophils # (A) 0.8 k/uL (0-0.7); Eosinophils % (A) 11 %; HCT 41.7 % (34.0-46.0); HGB 13.5 gm/dL (11.4-16.0); Lymphocytes # (A) 1.2 k/uL (1.0-4.8); Lymphocytes % (A) 16 %; MCH 25.6 pg (25.0-35.0); MCHC 32.4 g/dL (31.0-37.0); MCV 79.1 fL (80.0-100.0); Mean Platelet Volume 8.5; Monocytes # (A) 0.4 k/uL (0-1.0); Monocytes % (A) 5 %; Neutrophils # (A) 5.1 k/uL (1.3-7.7); Neutrophils % (A) 66 %; Platelet Count 251 k/uL (150-450); RBC 5.28 m/uL (3.80-5.40); RDW 13.6 % (11.5-15.5); WBC 7.8 k/uL (3.8-10.6)
[2019-06-28 10:32] LABS: ALT 12 U/L (4-34); AST 18 U/L (14-36); African American GFR (CKD) >90 (>60 ml/min/1.73 sqM); Albumin 4.4 g/dL (3.5-5.0); Alkaline Phosphatase 85 U/L (38-126); Amylase 63 U/L (30-110); Anion Gap 11 mmol/L; Appearance,Urine Cloudy (Clear); Bacteria,Urine Occasional /hpf; Bilirubin,Urine Negative (Negative); Blood Urea Nitrogen 10 mg/dL (7-17); Blood,Urine Negative (Negative); Budding Yeast,Urine Occasional /hpf; Calcium 9.5 mg/dL (8.4-10.2); Carbon Dioxide 22 mmol/L (22-30); Chloride 109 mmol/L (98-107); Color,Urine Yellow; Glucose 106 mg/dL (74-99); Glucose,Urine (UA) Negative (Negative); Ketones,Urine Negative (Negative); Leukocyte Esterase,Urine Moderate (Negative); Mucus,Urine Rare /hpf; Nitrite,Urine Negative (Negative); Non-African American GFR(CKD) 88 (>60 ml/min/1.73 sqM); PH, Urine 5.5 (5.0-8.0); Potassium 4.2 mmol/L (3.5-5.1); Protein,Urine Negative (Negative); RBC,Urine 2 /hpf (0-5); Sodium 142 mmol/L (137-145); Specific Gravity,Urine 1.016 (1.001-1.035); Squamous Epithelial Cell,Urine 12 /hpf (0-4); Total Bilirubin 0.7 mg/dL (0.2-1.3); Total Protein 7.4 g/dL (6.3-8.2); Urobilinogen,Urine <2.0 mg/dL (<2.0); WBC,Urine 7 /hpf (0-5)
--- NOTE | 2019-06-28 11:17 | XR ---
EXAMINATION TYPE: XR KUB DATE OF EXAM: 06/28/2019 10:58 AM CLINICAL HISTORY: Abdominal pain, nausea, vomiting, and diarrhea TECHNIQUE: Single supine KUB image of the abdomen is obtained. COMPARISON: None. FINDINGS: Nondilated small bowel loops are scattered throughout the abdomen. No dilated large bowel. No pneumoperitoneum. Lung bases are well aerated. Osseous structures are intact. Moderate degenerativ e change of the right femoral acetabular joint and mild of the left.. IMPRESSION: Nonobstructive bowel gas pattern.
[2019-06-28] MEDS ORDERED: PANTOPRAZOLE 40 MG/10 ML VIAL IVP STA (11:30)
[2019-06-28 11:41] VITALS: BP 110/70; PULSE 90
== END 2019-06-28 11:38 | disposition home or self-care (01) ==
LOC: EC 09:27
DX: K52.9 Noninfective gastroenteritis and colitis, unspecified (principal); Z91.048 Other nonmedicinal substance allergy status; Z91.018 Allergy to other foods
CPT/HCPCS: 36415; 93005; 80053; 82150; 83690; 85025; 81001; 81025; 74018; 99284; 96374; 96375; 96361; J2405; C9113

== ENCOUNTER 2019-11-26 20:00 | Emergency (ER) | payer OTHER ==
[2019-11-26 20:15] VITALS: BP 119/72; PULSE 96; RESP 16; TEMP 98.9
--- NOTE | 2019-11-26 20:16 | ED ---
General Adult HPI - General Stated complaint: Rash on hands, nausea Time Seen by Provider: 11/26/19 20:08 Source: patient, RN notes reviewed - History of Present Illness Initial comments: 24-year-old female with a past medical history of asthma, pelvic fracture 10 years ago presents to the emergency department for multiple complaints. Patient's initial complaint is a rash on her hands. States she has had bumps on her fingers that come and go throughout the day. States that these started a couple days ago. Patient denies any redness. She does admit to itching her hands. She denies any rash in her feet. Denies any rash elsewhere or generalized in nature. Patient has also had some mild nausea. She has not vomited. She has been able to eat and drink. She has not had any significant abdominal pain but did admit to one episode of sharp abdominal pain yesterday that has since completely resolved. Pain was in her upper abdomen and was associated with nausea. No pain since yesterday. No vaginal discharge. Kisha lozano has no other complaints at this time including shortness of breath, chest pain, abdominal pain, vomiting, headache, or visual changes. - Related Data Previous Rx's Medication Instructions Recorded Hydrocortisone Oint 1 applic TOPICAL TID 5 Days #20 gm 11/26/19 [Hydrocortisone 1% Oint] Ondansetron [Zofran ODT] 4 mg PO Q8HR PRN #15 tab 11/26/19 Allergies Allergy/AdvReac Type Severity Reaction Status Date / Time grass pollen Allergy Rash/Hives Verified 11/26/19 20:39 onion Allergy Anaphylaxis Verified 11/26/19 20:39 Review of Systems ROS Statement: Those systems with pertinent positive or pertinent negative responses have been documented in the HPI. ROS Other: All systems not noted in ROS Statement are negative. Past Medical History Past Medical History: Asthma Additional Past Medical History / Comment(s): fx pelvis 2009, History of Any Multi-Drug Resistant Organisms: None Reported Past Surgical History: No Surgical Hx Reported, Section Additional Past Surgical History / Comment(s): wisdom teeth Past Anesthesia/Blood Transfusion Reactions: No Reported Reaction Past Psychological History: Anxiety, Depression Smoking Status: Never smoker Past Alcohol Use History: None Reported Past Drug Use History: None Reported - Past Family History Mother Family Medical History: Diabetes Mellitus General Exam General appearance: alert, in no apparent distress Head exam: Present: atraumatic, normocephalic, normal inspection Eye exam: Present: normal appearance, PERRL, EOMI. Absent: scleral icterus, conjunctival injection, periorbital swelling ENT exam: Present: normal exam, mucous membranes moist Neck exam: Present: normal inspection, full ROM. Absent: tenderness, meningismus, lymphadenopathy Respiratory exam: Present: normal lung sounds bilaterally. Absent: respiratory distress, wheezes, rales, rhonchi, stridor Cardiovascular Exam: Present: regular rate, normal rhythm, normal heart sounds. Absent: systolic murmur, diastolic murmur, rubs, gallop, clicks GI/Abdominal exam: Present: soft, normal bowel sounds. Absent: distended, tenderness, guarding, rebound, rigid Extremities exam: Present: other (Small 2 mm x 2 mm papular nodules noted sporadically on patient's lateral fingers on both hands. No erythema. Negative Nikolsky sign. No rash on the feet.) Course Vital Signs 11/26/19 20:05 Temperature 98.9 F Pulse Rate 96 Respiratory 16 Rate Blood Pressure 119/72 O2 Sat by Pulse 96 Oximetry Medical Decision Making - Medical Decision Making Vitals are stable. Patient did have some abdominal pain yesterday however no ab dominal pain since that time. Abdomen is soft and nontender. No vomiting just some mild nausea over the past 2 days. HCG is negative. Urinalysis is unremarkable and contaminated with squamous cells. No dysuria. Small nodules noted along the lateral aspects of multiple fingers. No palmar lesions. Appearance similar to dyshidrotic eczema. Patient we treated with a steroid cream. However recommend she follow up with her doctor in one to 2 days. If symptoms do not resolve she will return here. - Lab Data Lab Results 11/26/19 11/26/19 Range/Units 20:23 20:23 Urine Color Light Yellow Urine Appearance Cloudy H (Clear) Urine pH 6.0 (5.0-8.0) Ur Specific [place] 1.006 (1.001-1.035) Urine Protein Negative (Negative) Urine Glucose (UA) Negative (Negative) Urine Ketones Negative (Negative) Urine Blood Negative (Negative) Urine Nitrite Negative (Negative) Urine Bilirubin Negative (Negative) Urine Urobilinogen <2.0 (<2.0) mg/dL Ur Leukocyte Esterase Moderate H (Negative) Urine RBC 2 (0-5) /hpf Urine WBC 12 H (0-5) /hpf Ur Squamous Epith Cells 6 H (0-4) /hpf Urine Bacteria Few H (None) /hpf Urine Yeast (Budding) Occasional H (None) /hpf Urine HCG, Qual Not Detected (Not Detectd) Disposition Clinical Impression: Rash, Nausea Disposition: HOME SELF-CARE Condition: Good Instructions (If sedation given, give patient instructions): Acute Rash (ED), Acute Nausea and Vomiting (ED) Additional Instructions: Please take Zofran as needed for nausea. Please use steroid ointment on affected areas only. Please follow-up with primary care in 1-2 days for a recheck. Return to the emergency room should you have any worsening symptoms. Prescriptions: Hydrocortisone Oint [Hydrocortisone 1% Oint] 1 applic TOPICAL TID 5 Days #20 gm Ondansetron [Zofran ODT] 4 mg PO Q8HR PRN #15 tab PRN Reason: Nausea Is patient prescribed a controlled substance at d/c from ED?: No Referrals: Robyn Hui MD [Primary Care Provider] - 1-2 days Time of Disposition: 20:53
[2019-11-26 20:34] LABS: Appearance,Urine Cloudy (Clear); Bacteria,Urine Few /hpf; Bilirubin,Urine Negative (Negative); Blood,Urine Negative (Negative); Budding Yeast,Urine Occasional /hpf; Color,Urine Light Yellow; Glucose,Urine (UA) Negative (Negative); Ketones,Urine Negative (Negative); Leukocyte Esterase,Urine Moderate (Negative); Nitrite,Urine Negative (Negative); Protein,Urine Negative (Negative); RBC,Urine 2 /hpf (0-5); Specific Gravity,Urine 1.006 (1.001-1.035); Squamous Epithelial Cell,Urine 6 /hpf (0-4); Urobilinogen,Urine <2.0 mg/dL (<2.0); WBC,Urine 12 /hpf (0-5)
== END 2019-11-26 21:03 | disposition home or self-care (01) ==
LOC: EC 20:00
DX: R21 Rash and other nonspecific skin eruption (principal); R11.0 Nausea; R10.9 Unspecified abdominal pain; R82.998 Other abnormal findings in urine; R22.33 Localized swelling, mass and lump, upper limb, bilateral; Z91.048 Other nonmedicinal substance allergy status; Z91.018 Allergy to other foods
CPT/HCPCS: 81001; 81025; 87077; 87086; 87186; 99283

== ENCOUNTER 2020-03-11 15:05 | Emergency (ER) | payer OTHER ==
[2020-03-11] MEDS ORDERED: ONDANSETRON 4 MG/2 ML VIAL IVP STA (15:35)
[2020-03-11] MEDS ORDERED: SODIUM CHLORIDE 0.9% 1,000 ML IV STA (15:35)
[2020-03-11] MEDS ORDERED: ACETAMINOPHEN TAB 500 MG TAB PO STA (15:37)
--- NOTE | 2020-03-11 15:37 | ED ---
Abdominal Pain HPI - General Chief Complaint: Abdominal Pain Stated Complaint: Abd Pain Time Seen by Provider: 03/11/20 15:23 Source: patient Mode of arrival: ambulatory Limitations: no limitations - History of Present Illness Initial Comments: Patient is a 24-year-old female presenting to emergency Department with chief complaint of abdominal pain. Patient reports pain started approximately 3-4 days ago with generalized pain that comes and goes. Patient states the pain alternates between dull and sharp in nature. States it is located throughout the abdomen. Does report increased urgency or frequency but denies dysuria. Denies hematuria, hematochezia or melena. Denies any nausea or vomiting or diarrhea. States there is a possibility for . is the only previous abdominal surgery. Denies any back pain. - Related Data Previous Rx's Medication Instructions Recorded Hydrocortisone Oint 1 applic TOPICAL TID 5 Days #20 gm 11/26/19 [Hydrocortisone 1% Oint] Ondansetron [Zofran ODT] 4 mg PO Q8HR PRN #15 tab 11/26/19 Sulfamethox-Tmp 800-160Mg [Bactrim 1 each PO Q12HR #20 tab 03/11/20 Ds] Allergies Allergy/AdvReac Type Severity Reaction Status Date / Time grass pollen Allergy Rash/Hives Verified 03/11/20 15:20 onion Allergy Anaphylaxis Verified 03/11/20 15:20 Review of Systems ROS Statement: Those systems with pertinent positive or pertinent negative responses have been documented in the HPI. ROS Other: All systems not noted in ROS Statement are negative. Past Medical History Past Medical History: Asthma Additional Past Medical History / Comment(s): fx pelvis 2009, History of Any Multi-Drug Resistant Organisms: None Reported Past Surgical History: Section Additional Past Surgical History / Comment(s): wisdom teeth Past Anesthesia/Blood Transfusion Reactions: No Reported Reaction Past Psychological History: Anxiety, Depression Smoking Status: Never smoker Past Alcohol Use History: None Reported Past Drug Use History: Marijuana - Past Family History Mother Family Medical History: Diabetes Mellitus General Exam Limitations: no limitations General appearance: alert, in no apparent distress, obese Head exam: Present: atraumatic, normocephalic, normal inspection Eye exam: Present: normal appearance, PERRL, EOMI Pupils: Present: normal accommodation ENT exam: Present: normal exam, normal oropharynx, mucous membranes moist, TM's normal bilaterally, normal external ear exam Neck exam: Present: normal inspection, full ROM. Absent: tenderness Respiratory exam: Present: normal lung sounds bilaterally. Absent: respiratory distress, wheezes, rales Cardiovascular Exam: Present: regular rate, normal rhythm, normal heart sounds GI/Abdominal exam: Present: soft, tenderness (Mostly suprapubic, mild abdominal pain.). Absent: distended, guarding, rebound, rigid Extremities exam: Present: normal inspection, full ROM, normal capillary refill. Absent: tenderness Back exam: Present: normal inspection, full ROM. Absent: tenderness, CVA tenderness (R), CVA tenderness (L) Neurological exam: Present: alert, oriented X3 Psychiatric exam: Present: normal affect, normal mood Skin exam: Present: warm, dry, intact, normal color Course Vital Signs 03/11/20 15:18 Temperature 99.3 F Pulse Rate 89 Respiratory 17 Rate Blood Pressure 121/78 O2 Sat by Pulse 98 Oximetry Medical Decision Making - Medical Decision Making Patient is 24-year-old female presenting to the emergency department the chief complaint abdominal pain. On physical examination, patient does appear to have mild suprapubic abdominal pain. CBC and CMP are unremarkable. Patient is not . UA reveals elevated leukocyte esterase with white blood cells. Urine culture is pending. Patient will be started Bactrim at discharge a 10 day course of Bactrim. Return parameters thoroughly discussed the patient was in standing and agreeable. Case discussed with physician. - Lab Data Result diagrams: 03/11/20 15:47 03/11/20 15:47 Lab Results 03/11/20 03/11/20 03/11/20 Range/Units 15:47 15:47 15:47 WBC 8.7 (3.8-10.6) k/uL RBC 5.15 (3.80-5.40) m/uL Hgb 13.9 (11.4-16.0) gm/dL Hct 40.9 (34.0-46.0) % MCV 79.5 L (80.0-100.0) fL MCH 27.0 (25.0-35.0) pg MCHC 33.9 (31.0-37.0) g/dL RDW 14.4 (11.5-15.5) % Plt Count 261 (150-450) k/uL Neutrophils % 68 % Lymphocytes % 19 % Monocytes % 5 % Eosinophils % 6 % Basophils % 1 % Neutrophils # 5.9 (1.3-7.7) k/uL Lymphocytes # 1.6 (1.0-4.8) k/uL Monocytes # 0.4 (0-1.0) k/uL Eosinophils # 0.5 (0-0.7) k/uL Basophils # 0.1 (0-0.2) k/uL Sodium 139 (137-145) mmol/L Potassium 4.8 (3.5-5.1) mmol/L Chloride 107 (98-107) mmol/L Carbon Dioxide 27 (22-30) mmol/L Anion Gap 5 mmol/L BUN 13 (7-17) mg/dL Creatinine 0.97 (0.52-1.04) mg/dL Est GFR (CKD-EPI)AfAm >90 (>60 ml/min/1.73 sqM) Est GFR (CKD-EPI)NonAf 83 (>60 ml/min/1.73 sqM) Glucose 95 (74-99) mg/dL Calcium 9.5 (8.4-10.2) mg/dL Total Bilirubin 0.8 (0.2-1.3) mg/dL AST 21 (14-36) U/L ALT 14 (4-34) U/L Alkaline Phosphatase 58 (38-126) U/L Total Protein 7.0 (6.3-8.2) g/dL Albumin 4.3 (3.5-5.0) g/dL Lipase 101 (23-300) U/L Urine Color Light Yellow Urine Appearance Cloudy H (Clear) Urine pH 6.5 (5.0-8.0) Ur Specific [place] 1.013 (1.001-1.035) Urine Protein Negative (Negative) Urine Glucose (UA) Negative (Negative) Urine Ketones Negative (Negative) Urine Blood Small H (Negative) Urine Nitrite Negative (Negative) Urine Bilirubin Negative (Negative) Urine Urobilinogen <2.0 (<2.0) mg/dL Ur Leukocyte Esterase Large H (Negative) Urine RBC 3 (0-5) /hpf Urine WBC 147 H (0-5) /hpf Ur Squamous Epith Cells 6 H (0-4) /hpf Urine Bacteria Rare H (None) /hpf Urine HCG, Qual (Not Detectd) 03/11/20 Range/Units 15:51 WBC (3.8-10.6) k/uL RBC (3.80-5.40) m/uL Hgb (11.4-16.0) gm/dL Hct (34.0-46.0) % MCV (80.0-100.0) fL MCH (25.0-35.0) pg MCHC (31.0-37.0) g/dL RDW (11.5-15.5) % Plt Count (150-450) k/uL Neutrophils % % Lymphocytes % % Monocytes % % Eosinophils % % Basophils % % Neutrophils # (1.3-7.7) k/uL Lymphocytes # (1.0-4.8) k/uL Monocytes # (0-1.0) k/uL Eosinophils # (0-0.7) k/uL Basophils # (0-0.2) k/uL Sodium (137-145) mmol/L Potassium (3.5-5.1) mmol/L Chloride (98-107) mmol/L Carbon Dioxide (22-30) mmol/L Anion Gap mmol/L BUN (7-17) mg/dL Creatinine (0.52-1.04) mg/dL Est GFR (CKD-EPI)AfAm (>60 ml/min/1.73 sqM) Est GFR (CKD-EPI)NonAf (>60 ml/min/1.73 sqM) Glucose (74-99) mg/dL Calcium (8.4-10.2) mg/dL Total Bilirubin (0.2-1.3) mg/dL AST (14-36) U/L ALT (4-34) U/L Alkaline Phosphatase (38-126) U/L Total Protein (6.3-8.2) g/dL Albumin (3.5-5.0) g/dL Lipase (23-300) U/L Urine Color Urine Appearance (Clear) Urine pH (5.0-8.0) Ur Specific [place] (1.001-1.035) Urine Protein (Negative) Urine Glucose (UA) (Negative) Urine Ketones (Negative) Urine Blood (Negative) Urine Nitrite (Negative) Urine Bilirubin (Negative) Urine Urobilinogen (<2.0) mg/dL Ur Leukocyte Esterase (Negative) Urine RBC (0-5) /hpf Urine WBC (0-5) /hpf Ur Squamous Epith Cells (0-4) /hpf Urine Bacteria (None) /hpf Urine HCG, Qual Not Detected (Not Detectd) Disposition Clinical Impression: Abdominal pain, Urinary tract infection Disposition: HOME SELF-CARE Condition: Stable Instructions (If sedation given, give patient instructions): Urinary Tract Infection in Women (DC) Additional Instructions: Take prescribed medication as directed. Return to emergency department if symptoms worsen. Follow-up with primary care physician. Prescriptions: Sulfamethox-Tmp 800-160Mg [Bactrim Ds] 1 each PO Q12HR #20 tab Is patient prescribed a controlled substance at d/c from ED?: No Referrals: Robyn Hui MD [Primary Care Provider] - 1-2 days Time of Disposition: 16:41
[2020-03-11 16:12] LABS: Basophils # (A) 0.1 k/uL (0-0.2); Basophils % (A) 1 %; Eosinophils # (A) 0.5 k/uL (0-0.7); Eosinophils % (A) 6 %; HCT 40.9 % (34.0-46.0); HGB 13.9 gm/dL (11.4-16.0); Lymphocytes # (A) 1.6 k/uL (1.0-4.8); Lymphocytes % (A) 19 %; MCHC 33.9 g/dL (31.0-37.0); MCV 79.5 fL (80.0-100.0); Mean Platelet Volume 8.1; Monocytes # (A) 0.4 k/uL (0-1.0); Monocytes % (A) 5 %; Neutrophils # (A) 5.9 k/uL (1.3-7.7); Neutrophils % (A) 68 %; Platelet Count 261 k/uL (150-450); RBC 5.15 m/uL (3.80-5.40); RDW 14.4 % (11.5-15.5); WBC 8.7 k/uL (3.8-10.6)
[2020-03-11 16:20] LABS: Appearance,Urine Cloudy (Clear); Bacteria,Urine Rare /hpf; Bilirubin,Urine Negative (Negative); Blood,Urine Small (Negative); Color,Urine Light Yellow; Glucose,Urine (UA) Negative (Negative); Ketones,Urine Negative (Negative); Leukocyte Esterase,Urine Large (Negative); Nitrite,Urine Negative (Negative); PH, Urine 6.5 (5.0-8.0); Protein,Urine Negative (Negative); RBC,Urine 3 /hpf (0-5); Specific Gravity,Urine 1.013 (1.001-1.035); Squamous Epithelial Cell,Urine 6 /hpf (0-4); Urobilinogen,Urine <2.0 mg/dL (<2.0); WBC,Urine 147 /hpf (0-5)
[2020-03-11 16:21] LABS: ALT 14 U/L (4-34); AST 21 U/L (14-36); African American GFR (CKD) >90 (>60 ml/min/1.73 sqM); Albumin 4.3 g/dL (3.5-5.0); Alkaline Phosphatase 58 U/L (38-126); Anion Gap 5 mmol/L; Blood Urea Nitrogen 13 mg/dL (7-17); Calcium 9.5 mg/dL (8.4-10.2); Carbon Dioxide 27 mmol/L (22-30); Chloride 107 mmol/L (98-107); Glucose 95 mg/dL (74-99); Non-African American GFR(CKD) 83 (>60 ml/min/1.73 sqM); Potassium 4.8 mmol/L (3.5-5.1); Sodium 139 mmol/L (137-145); Total Bilirubin 0.8 mg/dL (0.2-1.3)
[2020-03-11] MEDS ORDERED: SULFAMETHOX-TMP 800-160MG 1 EACH TAB PO STA (16:36)
[2020-03-11 16:48] VITALS: BP 138/78; PULSE 78; RESP 16; TEMP 98.1
== END 2020-03-11 16:47 | disposition home or self-care (01) ==
LOC: EC 15:05
DX: N39.0 Urinary tract infection, site not specified (principal); R10.84 Generalized abdominal pain; D72.829 Elevated white blood cell count, unspecified; Z91.048 Other nonmedicinal substance allergy status; Z91.018 Allergy to other foods
CPT/HCPCS: 36415; 80053; 83690; 85025; 81001; 81025; 87086; 99284; 96374; 96361; J2405

== ENCOUNTER 2020-03-28 04:46 | Emergency (ER) | payer OTHER ==
[2020-03-28 04:52] VITALS: BP 119/87; PULSE 93; RESP 18; TEMP 97.7
[2020-03-28] MEDS ORDERED: diphenhydrAMINE 50 MG CAP PO STA (05:15)
[2020-03-28] MEDS ORDERED: METOCLOPRAMIDE 10 MG TAB PO STA (05:15)
[2020-03-28] MEDS ORDERED: traMADol 50 MG TAB PO STA (05:16)
--- NOTE | 2020-03-28 06:11 | ED ---
Headache HPI - General Chief Complaint: Headache Stated Complaint: Migraine Time Seen by Provider: 03/28/20 05:06 Mode of arrival: ambulatory Limitations: no limitations - History of Present Illness MD Complaint: headache Onset/Timin -: days(s) Onset Description: gradual Location: frontal Severity: severe Quality: aching, throbbing Consistency: constant Improves With: nothing Worsens With: light Context: occurred at rest Treatments Prior to Arrival: Acetaminophen - Related Data Previous Rx's Medication Instructions Recorded Hydrocortisone Oint 1 applic TOPICAL TID 5 Days #20 gm 11/26/19 [Hydrocortisone 1% Oint] Ondansetron [Zofran ODT] 4 mg PO Q8HR PRN #15 tab 11/26/19 Sulfamethox-Tmp 800-160Mg [Bactrim 1 each PO Q12HR #20 tab 03/11/20 Ds] Metoclopramide [Reglan] 10 mg PO Q6H PRN #12 tab 03/28/20 Allergies Allergy/AdvReac Type Severity Reaction Status Date / Time grass pollen Allergy Rash/Hives Verified 03/28/20 04:51 onion Allergy Anaphylaxis Verified 03/28/20 04:51 Review of Systems ROS Statement: Those systems with pertinent positive or pertinent negative responses have been documented in the HPI. ROS Other: All systems not noted in ROS Statement are negative. Constitutional: Denies: fever, chills, weakness Eyes: Denies: eye pain, vision change ENT: Denies: ear pain, hearing loss, congestion Respiratory: Denies: cough, dyspnea Cardiovascular: Denies: chest pain, syncope Gastrointestinal: Reports: nausea. Denies: abdominal pain, vomiting Musculoskeletal: Denies: back pain Skin: Denies: rash Neurological: Reports: headache. Denies: weakness, numbness, paresthesias, confusion, vertigo Past Medical History Past Medical History: Asthma Additional Past Medical History / Comment(s): fx pelvis 2010, History of Any Multi-Drug Resistant Organisms: None Reported Past Surgical History: Section Additional Past Surgical History / Comment(s): wisdom teeth Past Anesthesia/Blood Transfusion Reactions: No Reported Reaction Past Psychological History: Anxiety, Depression Smoking Status: Never smoker Past Alcohol Use History: None Reported Past Drug Use History: Marijuana - Past Family History Mother Family Medical History: Diabetes Mellitus General Exam Limitations: no limitations General appearance: alert, in no apparent distress Head exam: Present: atraumatic, normocephalic Eye exam: Present: normal appearance, PERRL, EOMI. Absent: scleral icterus, conjunctival injection, nystagmus ENT exam: Present: normal oropharynx, mucous membranes moist, TM's normal bilaterally, normal external ear exam Neck exam: Present: full ROM. Absent: tenderness, meningismus Respiratory exam: Present: normal lung sounds bilaterally. Absent: respiratory distress, wheezes, rales, rhonchi, stridor Cardiovascular Exam: Present: regular rate, normal rhythm, normal heart sounds. Absent: systolic murmur, diastolic murmur, rubs, gallop Back exam: Present: normal inspection. Absent: vertebral tenderness Neurological exam: Present: alert, oriented X3, CN II-XII intact, normal gait. Absent: motor sensory deficit Skin exam: Present: warm, dry, intact, normal color. Absent: rash Course Vital Signs 03/28/20 04:50 Temperature 97.7 F Pulse Rate 93 Respiratory 18 Rate Blood Pressure 119/87 O2 Sat by Pulse 96 Oximetry Medical Decision Making - Medical Decision Making the patient is a 24-year-old woman presenting with worst headache of life. She declined to have lumbar puncture following the discussion of risks, benefits, and indications. We discussed appropriate further care and follow-up as well as needs to follow withneurology if any change in vision to rule out pseudotumor. Return parameters discussed Disposition Clinical Impression: Headache Disposition: HOME SELF-CARE Condition: Good Instructions (If sedation given, give patient instructions): Acute Headache (ED) Prescriptions: Metoclopramide [Reglan] 10 mg PO Q6H PRN #12 tab PRN Reason: Headache Is patient prescribed a controlled substance at d/c from ED?: No Referrals: Robyn Hui MD [Primary Care Provider] - 1-2 days Javier Go MD [REFERRING] - 1-2 days
== END 2020-03-28 06:39 | disposition home or self-care (01) ==
LOC: EC 04:46
DX: R51.9 Headache, unspecified (principal); Z91.018 Allergy to other foods; Z91.048 Other nonmedicinal substance allergy status
CPT/HCPCS: 99283

== ENCOUNTER 2020-12-10 12:37 | Emergency (ER) | payer OTHER ==
[2020-12-10 12:40] VITALS: BP 122/77; PULSE 112; RESP 20; TEMP 97.7
[2020-12-10] MEDS ORDERED: SODIUM CHLORIDE 0.9% 1,000 ML IV STA (13:10)
[2020-12-10] MEDS ORDERED: ONDANSETRON 4 MG/2 ML VIAL IVP STA (13:10)
[2020-12-10 13:43] LABS: Appearance,Urine Cloudy (Clear); Bacteria,Urine Rare /hpf; Bilirubin,Urine Negative (Negative); Blood,Urine Negative (Negative); Color,Urine Yellow; Glucose,Urine (UA) Negative (Negative); Ketones,Urine Negative (Negative); Leukocyte Esterase,Urine Small (Negative); Mucus,Urine Rare /hpf; Nitrite,Urine Negative (Negative); Protein,Urine Negative (Negative); Specific Gravity,Urine 1.019 (1.001-1.035); Squamous Epithelial Cell,Urine 6 /hpf (0-4); Urobilinogen,Urine <2.0 mg/dL (<2.0); WBC,Urine 2 /hpf (0-5)
[2020-12-10 13:45] LABS: Basophils # (A) 0.1 k/uL (0-0.2); Basophils % (A) 1 %; Eosinophils # (A) 0.4 k/uL (0-0.7); Eosinophils % (A) 4 %; HCT 37.4 % (34.0-46.0); HGB 12.8 gm/dL (11.4-16.0); Lymphocytes # (A) 2.2 k/uL (1.0-4.8); Lymphocytes % (A) 21 %; MCH 26.2 pg (25.0-35.0); MCHC 34.2 g/dL (31.0-37.0); MCV 76.6 fL (80.0-100.0); Mean Platelet Volume 7.9; Microcytosis Slight; Monocytes # (A) 0.5 k/uL (0-1.0); Monocytes % (A) 5 %; Neutrophils # (A) 6.9 k/uL (1.3-7.7); Neutrophils % (A) 68 %; Platelet Count 278 k/uL (150-450); RBC 4.88 m/uL (3.80-5.40); WBC 10.2 k/uL (3.8-10.6)
[2020-12-10 13:57] LABS: ALT 13 U/L (4-34); AST 20 U/L (14-36); African American GFR (CKD) >90 (>60 ml/min/1.73 sqM); Albumin 4.2 g/dL (3.5-5.0); Alkaline Phosphatase 66 U/L (38-126); Amylase 52 U/L (30-110); Anion Gap 8 mmol/L; Blood Urea Nitrogen 10 mg/dL (7-17); Calcium 9.8 mg/dL (8.4-10.2); Carbon Dioxide 26 mmol/L (22-30); Chloride 107 mmol/L (98-107); Glucose 100 mg/dL (74-99); Lipase 109 U/L (23-300); Non-African American GFR(CKD) 88 (>60 ml/min/1.73 sqM); Potassium 4.4 mmol/L (3.5-5.1); Sodium 141 mmol/L (137-145); Total Bilirubin 0.7 mg/dL (0.2-1.3)
[2020-12-10] MEDS ORDERED: FAMOTIDINE 20 MG/2 ML VIAL IV STA (14:07)
[2020-12-10] MEDS ORDERED: MAG HYDROX/AL HYDROX/SIMETH 30 ML, HYOSCYAMINE ELIXIR 10 ML PO STA ×2 (14:07)
--- NOTE | 2020-12-10 14:24 | ED ---
Abdominal Pain HPI - General Source: patient, RN notes reviewed Mode of arrival: ambulatory Limitations: no limitations <Del Lopez - Last Filed: 12/10/20 14:22> <Yudelka Waddell - Last Filed: 12/20/20 01:47> - General Chief Complaint: Abdominal Pain Stated Complaint: Abd pain Time Seen by Provider: 12/10/20 13:10 - History of Present Illness Initial Comments: 25-year-old female presented to the emergency Department with chief complaint of upper abdominal pain. Patient states started earlier. Patient states it's worse after she eats. She does not just nausea, heartburn. Patient denies any fevers chills abdominal cramping diarrhea constipation dysuria hematuria no chance (Del Lopez) - Related Data Previous Rx's Medication Instructions Recorded Omeprazole [PriLOSEC] 40 mg PO DAILY #14 cap 12/10/20 Ondansetron Odt [Zofran Odt] 4 mg PO Q8HR PRN #10 tab 12/10/20 Allergies Allergy/AdvReac Type Severity Reaction Status Date / Time grass pollen Allergy Rash/Hives Verified 12/10/20 13:33 onion Allergy Anaphylaxis Verified 12/10/20 13:33 Review of Systems ROS Other: All systems not noted in ROS Statement are negative. <Del Lopez - Last Filed: 12/10/20 14:22> ROS Other: All systems not noted in ROS Statement are negative. <Yudelka Waddell - Last Filed: 12/20/20 01:47> ROS Statement: Those systems with pertinent positive or pertinent negative responses have been documented in the HPI. Past Medical History Past Medical History: Asthma Additional Past Medical History / Comment(s): fx pelvis 2009, History of Any Multi-Drug Resistant Organisms: None Reported Past Surgical History: Section Additional Past Surgical History / Comment(s): wisdom teeth Past Anesthesia/Blood Transfusion Reactions: No Reported Reaction Past Psychological History: Anxiety, Depression Smoking Status: Never smoker Past Alcohol Use History: None Reported Past Drug Use History: Marijuana - Past Family History Mother Family Medical History: Diabetes Mellitus <Del Lopez - Last Filed: 12/10/20 14:22> General Exam Limitations: no limitations General appearance: alert, in no apparent distress Head exam: Present: atraumatic, normocephalic, normal inspection Eye exam: Present: normal appearance, PERRL, EOMI. Absent: scleral icterus, conjunctival injection, periorbital swelling Respiratory exam: Present: normal lung sounds bilaterally. Absent: respiratory distress, wheezes, rales, rhonchi, stridor Cardiovascular Exam: Present: regular rate, normal rhythm, normal heart sounds. Absent: systolic murmur, diastolic murmur, rubs, gallop, clicks GI/Abdominal exam: Present: soft, tenderness (Epigastric no right upper quadrant tenderness), normal bowel sounds. Absent: distended, guarding, rebound, rigid Back exam: Absent: CVA tenderness (R), CVA tenderness (L) Neurological exam: Present: alert Skin exam: Present: warm, dry, intact, normal color. Absent: rash <Del Lopez - Last Filed: 12/10/20 14:22> Course Vital Signs 12/10/20 12:38 Temperature 97.7 F Pulse Rate 112 H Respiratory 20 Rate Blood Pressure 122/77 O2 Sat by Pulse 99 Oximetry Medical Decision Making - Lab Data Result diagrams: 12/10/20 13:26 12/10/20 13:26 <Del Lopez - Last Filed: 12/10/20 14:22> - Lab Data Result diagrams: 12/10/20 13:26 12/10/20 13:26 <Yudelka Waddell - Last Filed: 12/20/20 01:47> - Medical Decision Making 25-year-old female presented from for abdominal pain. Patient also has underlying gastritis she was given antiemetics, check echo, fluids feels improved patient we discharged stable condition return parameters were discussed. (Del Lopez) I was available for consultation in the emergency department. The history and physical exam were done by the midlevel provider. I was consulted for this patients care. I reviewed the case with the midlevel provider and based on their presentation of the patient, I agree with the assessment, medical decision making and plan of care as documented. Chart was dictated using [employer] dictation software. Attempts were made to correct any dictation errors however some typographical errors may persist. (Yudelka Waddell) - Lab Data Lab Results 12/10/20 12/10/20 12/10/20 Range/Units 12:52 12:52 13:26 WBC 10.2 (3.8-10.6) k/uL RBC 4.88 (3.80-5.40) m/uL Hgb 12.8 (11.4-16.0) gm/dL Hct 37.4 (34.0-46.0) % MCV 76.6 L (80.0-100.0) fL MCH 26.2 (25.0-35.0) pg MCHC 34.2 (31.0-37.0) g/dL RDW 15.0 (11.5-15.5) % Plt Count 278 (150-450) k/uL MPV 7.9 Neutrophils % 68 % Lymphocytes % 21 % Monocytes % 5 % Eosinophils % 4 % Basophils % 1 % Neutrophils # 6.9 (1.3-7.7) k/uL Lymphocytes # 2.2 (1.0-4.8) k/uL Monocytes # 0.5 (0-1.0) k/uL Eosinophils # 0.4 (0-0.7) k/uL Basophils # 0.1 (0-0.2) k/uL Microcytosis Slight Sodium (137-145) mmol/L Potassium (3.5-5.1) mmol/L Chloride (98-107) mmol/L Carbon Dioxide (22-30) mmol/L Anion Gap mmol/L BUN (7-17) mg/dL Creatinine (0.52-1.04) mg/dL Est GFR (CKD-EPI)AfAm (>60 ml/min/1.73 sqM) Est GFR (CKD-EPI)NonAf (>60 ml/min/1.73 sqM) Glucose (74-99) mg/dL Plasma Lactic Acid Arturo (0.7-2.0) mmol/L Calcium (8.4-10.2) mg/dL Total Bilirubin (0.2-1.3) mg/dL AST (14-36) U/L ALT (4-34) U/L Alkaline Phosphatase (38-126) U/L Total Protein (6.3-8.2) g/dL Albumin (3.5-5.0) g/dL Amylase (30-110) U/L Lipase (23-300) U/L Urine Color Yellow Urine Appearance Cloudy H (Clear) Urine pH 6.0 (5.0-8.0) Ur Specific [place] 1.019 (1.001-1.035) Urine Protein Negative (Negative) Urine Glucose (UA) Negative (Negative) Urine Ketones Negative (Negative) Urine Blood Negative (Negative) Urine Nitrite Negative (Negative) Urine Bilirubin Negative (Negative) Urine Urobilinogen <2.0 (<2.0) mg/dL Ur Leukocyte Esterase Small H (Negative) Urine WBC 2 (0-5) /hpf Ur Squamous Epith Cells 6 H (0-4) /hpf Urine Bacteria Rare H (None) /hpf Urine Mucus Rare H (None) /hpf Urine HCG, Qual Detected (Not Detectd) 12/10/20 12/10/20 Range/Units 13:26 13:26 WBC (3.8-10.6) k/uL RBC (3.80-5.40) m/uL Hgb (11.4-16.0) gm/dL Hct (34.0-46.0) % MCV (80.0-100.0) fL MCH (25.0-35.0) pg MCHC (31.0-37.0) g/dL RDW (11.5-15.5) % Plt Count (150-450) k/uL MPV Neutrophils % % Lymphocytes % % Monocytes % % Eosinophils % % Basophils % % Neutrophils # (1.3-7.7) k/uL Lymphocytes # (1.0-4.8) k/uL Monocytes # (0-1.0) k/uL Eosinophils # (0-0.7) k/uL Basophils # (0-0.2) k/uL Microcytosis Sodium 141 (137-145) mmol/L Potassium 4.4 (3.5-5.1) mmol/L Chloride 107 (98-107) mmol/L Carbon Dioxide 26 (22-30) mmol/L Anion Gap 8 mmol/L BUN 10 (7-17) mg/dL Creatinine 0.92 (0.52-1.04) mg/dL Est GFR (CKD-EPI)AfAm >90 (>60 ml/min/1.73 sqM) Est GFR (CKD-EPI)NonAf 88 (>60 ml/min/1.73 sqM) Glucose 100 H (74-99) mg/dL Plasma Lactic Acid [place]uro 1.0 (0.7-2.0) mmol/L Calcium 9.8 (8.4-10.2) mg/dL Total Bilirubin 0.7 (0.2-1.3) mg/dL AST 20 (14-36) U/L ALT 13 (4-34) U/L Alkaline Phosphatase 66 (38-126) U/L Total Protein 7.0 (6.3-8.2) g/dL Albumin 4.2 (3.5-5.0) g/dL Amylase 52 (30-110) U/L Lipase 109 (23-300) U/L Urine Color Urine Appearance (Clear) Urine pH (5.0-8.0) Ur Specific [place] (1.001-1.035) Urine Protein (Negative) Urine Glucose (UA) (Negative) Urine Ketones (Negative) Urine Blood (Negative) Urine Nitrite (Negative) Urine Bilirubin (Negative) Urine Urobilinogen (<2.0) mg/dL Ur Leukocyte Esterase (Negative) Urine WBC (0-5) /hpf Ur Squamous Epith Cells (0-4) /hpf Urine Bacteria (None) /hpf Urine Mucus (None) /hpf Urine HCG, Qual (Not Detectd) Disposition Is patient prescribed a controlled substance at d/c from ED?: No Time of Disposition: 14:24 <Del Lopez - Last Filed: 12/10/20 14:22> <Yudelka Waddell - Last Filed: 12/20/20 01:47> Clinical Impression: Gastritis Disposition: HOME SELF-CARE Condition: Stable Instructions (If sedation given, give patient instructions): Gastritis (ED) Additional Instructions: Please return to the Emergency Department if symptoms worsen or any other concerns. Prescriptions: Omeprazole [PriLOSEC] 40 mg PO DAILY #14 cap Ondansetron Odt [Zofran Odt] 4 mg PO Q8HR PRN #10 tab PRN Reason: Nausea Referrals: Robyn Hui MD [Primary Care Provider] - 1-2 days
== END 2020-12-10 14:35 | disposition home or self-care (01) ==
LOC: EC 12:37
DX: K29.70 Gastritis, unspecified, without bleeding (principal); J45.909 Unspecified asthma, uncomplicated; F12.90 Cannabis use, unspecified, uncomplicated; F32.9 Major depressive disorder, single episode, unspecified
CPT/HCPCS: 36415; 80053; 82150; 83605; 83690; 85025; 81001; 81025; 99284; 96374; 96375; 96361; J2405

== ENCOUNTER 2020-12-24 15:11 | Emergency (ER) | payer OTHER ==
--- NOTE | 2020-12-24 16:54 | ED ---
Female Urogenital HPI - General Chief complaint: Vaginal Bleeding Stated complaint: 7 Weeks Preg,Vaginal Bleeding Time Seen by Provider: 12/24/20 15:34 Source: patient Mode of arrival: ambulatory Limitations: no limitations - History of Present Illness Initial comments: Porsha is a 25-year-old female who approximately she is 7 weeks based on last menstrual period. She presents the ER today for evaluation of vaginal bleeding. She states that she has dark spotting. Not passing any clots. No cramping. She has not seen an OB yet for this . She's not had any imaging to confirm an intrauterine . She is not having any significant abdominal pain or discomfort. She denies any concerns for sexually transmitted infections. - Related Data Home Medications Medication Instructions Recorded Confirmed methylPREDNISolone [Medrol Dose See Taper PO DIRECTED 12/24/20 12/24/20 Pack] Allergies Allergy/AdvReac Type Severity Reaction Status Date / Time grass pollen Allergy Rash/Hives Verified 12/24/20 16:11 onion Allergy Anaphylaxis Verified 12/24/20 16:11 Review of Systems ROS Statement: Those systems with pertinent positive or pertinent negative responses have been documented in the HPI. ROS Other: All systems not noted in ROS Statement are negative. Past Medical History Past Medical History: Asthma Additional Past Medical History / Comment(s): fx pelvis 2009, History of Any Multi-Drug Resistant Organisms: None Reported Past Surgical History: Section Additional Past Surgical History / Comment(s): wisdom teeth Past Anesthesia/Blood Transfusion Reactions: No Reported Reaction Past Psychological History: Anxiety, Depression Smoking Status: Never smoker Past Alcohol Use History: None Reported Past Drug Use History: Marijuana - Past Family History Mother Family Medical History: Diabetes Mellitus General Exam - General Exam Comments Initial Comments: Physical Exam GENERAL: Patient is well-developed and well-nourished. Patient is nontoxic and well-hydrated and is in no distress. HENT: Normocephalic, Atraumatic. EYES: PERRL, EOMI PULMONARY: Unlabored respirations. CARDIOVASCULAR: RRR Warm and well perfused extremities ABDOMEN: Non-distended SKIN: No rashes or bruising : Normal external genitalia, dark blood and vaginal vault, cervical os is closed NEUROLOGIC: Alert and oriented Normal speech Normal gait MUSCULOSKELETAL: Moving all extremities with no apparent injury PSYCHIATRIC: No SI/HI Limitations: no limitations Course Vital Signs 12/24/20 12/24/20 15:16 18:08 Temperature 98.2 F 97.9 F Pulse Rate 80 18 L Respiratory 16 86 H Rate Blood Pressure 121/71 126/88 O2 Sat by Pulse 98 Oximetry Medical Decision Making - Medical Decision Making Patient was seen and evaluated history was obtained from the patient View of record reveals patient's blood type is B+ no indication for repeat blood typing a program at this time 25-year-old very early in with dark bleeding per vagina Pelvic exam reveals some dark blood no clots os is closed Ultrasound with gestational sac in the uterus 5 weeks 1 day gestation Results were discussed patient's temporal plan for discharge home and outpatient follow-up - Lab Data Lab Results 12/24/20 Range/Units 17:33 Urine Color Yellow Urine Appearance Clear (Clear) Urine pH 5.5 (5.0-8.0) Ur Specific [place] 1.017 (1.001-1.035) Urine Protein Negative (Negative) Urine Glucose (UA) Negative (Negative) Urine Ketones Negative (Negative) Urine Blood Large H (Negative) Urine Nitrite Negative (Negative) Urine Bilirubin Negative (Negative) Urine Urobilinogen <2.0 (<2.0) mg/dL Ur Leukocyte Esterase Negative (Negative) Urine RBC 22 H (0-5) /hpf Urine WBC 2 (0-5) /hpf Ur Squamous Epith Cells 5 H (0-4) /hpf Urine Bacteria Rare H (None) /hpf Urine Mucus Rare H (None) /hpf Disposition Clinical Impression: Vaginal bleeding before 22 weeks gestation Disposition: HOME SELF-CARE Condition: Stable Additional Instructions: Follow up with OB for repeat ultrasound to confirm Is patient prescribed a controlled substance at d/c from ED?: No Referrals: Robyn Hui MD [Primary Care Provider] - 1-2 days
--- NOTE | 2020-12-24 17:41 | US ---
EXAMINATION TYPE: Transabdominal DATE OF EXAM: 12/24/2020 5:14 PM COMPARISON: NONE CLINICAL HISTORY: vaginal bleeding 7wks preg from LMP. Vagional spotting today EXAM PERFORMED: Transvaginal (TV) and Transabdominal (TA) EXAM MEASUREMENTS: GESTATIONAL AGE / DATING Physician Established: Not yet established Dates by LMP: (6 weeks/6 days) EDC: 08/13/2021 Dates by First Scan: No previous Dates by Current Scan for: ( 5 weeks/ 1 day) EDC: 08/25/2021 MATERNAL ANATOMY; Large body habitus at 280lbs, HT5'3 Uterus: 8.3 x 6.6 x 5.0cm Right Ovary: not seen TA or TV US Left Ovary: not seen TA or TV US Post CDS / Adnexa: wnl Presence of free fluid: no Presence of subchorionic bleed: hypoechoic complex fluid area seen surrounding gestational sac = 1.6 x 2.0 x 0.5cm. GESTATION / SURVEY CRL: not seen MSD: 1.1cm (5 weeks/1 day) Yolk Sac (normal less than 6mm): 3.2mm IUP: single gestational sac and yolk sac is seen Date of LMP: 11/06/2020 Beta HcG (if available): NA Single gestational sac and yolk sac seen in early : 5 weeks/ 1 day) EDC: 08/25/2021; with presence of subchorionic bleed. IMPRESSION: Intrauterine gestational sac and yolk sac. The size corresponds to 5 weeks and 1 day gestation.Tiny h ypoechoic fluid area adjacent to the gestational sac. Follow-up is recommended in 10 days to confirm a living fetus.
[2020-12-24 17:51] LABS: Appearance,Urine Clear (Clear); Bacteria,Urine Rare /hpf; Bilirubin,Urine Negative (Negative); Blood,Urine Large (Negative); Color,Urine Yellow; Glucose,Urine (UA) Negative (Negative); Ketones,Urine Negative (Negative); Leukocyte Esterase,Urine Negative (Negative); Mucus,Urine Rare /hpf; Nitrite,Urine Negative (Negative); PH, Urine 5.5 (5.0-8.0); Protein,Urine Negative (Negative); RBC,Urine 22 /hpf (0-5); Specific Gravity,Urine 1.017 (1.001-1.035); Squamous Epithelial Cell,Urine 5 /hpf (0-4); Urobilinogen,Urine <2.0 mg/dL (<2.0); WBC,Urine 2 /hpf (0-5)
[2020-12-24 18:14] VITALS: BP 126/88; PULSE 18; RESP 86; TEMP 97.9
== END 2020-12-24 18:08 | disposition home or self-care (01) ==
LOC: EC 15:11
DX: O20.9 Hemorrhage in early pregnancy, unspecified (principal); O99.321 Drug use complicating pregnancy, first trimester; F12.90 Cannabis use, unspecified, uncomplicated; O99.511 Diseases of the respiratory system complicating pregnancy, first trimester; J45.909 Unspecified asthma, uncomplicated; Z79.52 Long term (current) use of systemic steroids; Z83.3 Family history of diabetes mellitus; Z3A.01 Less than 8 weeks gestation of pregnancy
CPT/HCPCS: 76801; 76817; 81001; 99284

== ENCOUNTER 2021-06-12 00:23 | Emergency (ER) | payer OTHER ==
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
[2021-06-12 02:48] VITALS: BP 132/77; PULSE 67; RESP 18; TEMP 98.7
== END 2021-06-12 02:25 | disposition home or self-care (01) ==
LOC: EC 00:23
DX: J06.9 Acute upper respiratory infection, unspecified (principal); J45.909 Unspecified asthma, uncomplicated; E78.5 Hyperlipidemia, unspecified; F41.9 Anxiety disorder, unspecified; F32.A Depression, unspecified; F12.90 Cannabis use, unspecified, uncomplicated; Z20.822 Contact with and (suspected) exposure to COVID-19
CPT/HCPCS: 87635; 99284

== ENCOUNTER 2021-09-19 12:09 | Emergency (ER) | payer OTHER ==
[2021-09-19 12:22] VITALS: BP 101/71; PULSE 75; RESP 18; TEMP 97.8
[2021-09-19] MEDS ORDERED: SODIUM CHLORIDE 0.9% 1,000 ML IV STA (13:15)
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
[2021-09-19 14:28] LABS: Basophils # (A) 0.1 k/uL (0-0.2); Basophils % (A) 1 %; Eosinophils # (A) 0.3 k/uL (0-0.7); Eosinophils % (A) 4 %; HCT 41.7 % (34.0-46.0); HGB 13.8 gm/dL (11.4-16.0); Lymphocytes # (A) 0.6 k/uL (1.0-4.8); Lymphocytes % (A) 8 %; MCH 27.3 pg (25.0-35.0); MCHC 33.2 g/dL (31.0-37.0); MCV 82.2 fL (80.0-100.0); Mean Platelet Volume 8.7; Monocytes # (A) 0.3 k/uL (0-1.0); Monocytes % (A) 4 %; Neutrophils # (A) 6.1 k/uL (1.3-7.7); Neutrophils % (A) 83 %; Platelet Count 230 k/uL (150-450); RBC 5.07 m/uL (3.80-5.40); RDW 13.1 % (11.5-15.5); WBC 7.4 k/uL (3.8-10.6)
[2021-09-19 14:33] LABS: ALT 14 U/L (4-34); AST 16 U/L (14-36); African American GFR (CKD) >90 (>60 ml/min/1.73 sqM); Albumin 4.1 g/dL (3.5-5.0); Alkaline Phosphatase 62 U/L (38-126); Anion Gap 7 mmol/L; Blood Urea Nitrogen 7 mg/dL (7-17); Calcium 9.2 mg/dL (8.4-10.2); Carbon Dioxide 25 mmol/L (22-30); Chloride 107 mmol/L (98-107); Glucose 103 mg/dL (74-99); INR 1.1 (<1.2); Lipase 68 U/L (23-300); Magnesium 1.8 mg/dL (1.6-2.3); Non-African American GFR(CKD) >90 (>60 ml/min/1.73 sqM); Partial Thromboplastin Time 23.9 sec (22.0-30.0); Potassium 3.9 mmol/L (3.5-5.1); Prothrombin Time 11.3 sec (9.0-12.0); Sodium 139 mmol/L (137-145); Total Bilirubin 0.8 mg/dL (0.2-1.3)
[2021-09-19] MEDS ORDERED: LIDOCAINE 5% PATCH TOPICAL STA (14:46)
--- NOTE | 2021-09-19 15:39 | US ---
EXAMINATION TYPE: US abdomen limited DATE OF EXAM: 09/19/2021 COMPARISON: NONE CLINICAL HISTORY: ruq pain. Pain and vomiting. Limited due to body habitus and bowel gas. EXAM MEASUREMENTS: Liver Length: 16.8 cm Gallbladder Wall: .3 cm CBD: 0.4 cm Right Kidney: 10.0 x 4.7 x 4.2 cm Pancreas: Obscured by bowel gas Liver: Increased attenuation Gallbladder: No stones seen Evidence for sonographic Velázquez's sign: No CBD: wnl Right Kidney: No hydronephrosis or masses seen IMPRESSION: Correlate for possible hepatic steatosis limited exam
[2021-09-19] MEDS ORDERED: ORPHENADRINE 30 MG/ML 2 ML VIAL IVP STA (17:00)
[2021-09-19] MEDS ORDERED: KETOROLAC 15 MG/ML 1 ML VIAL IVP STA (17:00)
--- NOTE | 2021-09-19 19:47 | ED ---
Medical Decision Making - Lab Data Result diagrams: 09/19/21 14:14 09/19/21 14:14 Lab Results 09/19/21 09/19/21 09/19/21 Range/Units 14:14 14:14 14:14 WBC 7.4 (3.8-10.6) k/uL RBC 5.07 (3.80-5.40) m/uL Hgb 13.8 (11.4-16.0) gm/dL Hct 41.7 (34.0-46.0) % MCV 82.2 (80.0-100.0) fL MCH 27.3 (25.0-35.0) pg MCHC 33.2 (31.0-37.0) g/dL RDW 13.1 (11.5-15.5) % Plt Count 230 (150-450) k/uL MPV 8.7 Neutrophils % 83 % Lymphocytes % 8 % Monocytes % 4 % Eosinophils % 4 % Basophils % 1 % Neutrophils # 6.1 (1.3-7.7) k/uL Lymphocytes # 0.6 L (1.0-4.8) k/uL Monocytes # 0.3 (0-1.0) k/uL Eosinophils # 0.3 (0-0.7) k/uL Basophils # 0.1 (0-0.2) k/uL PT 11.3 (9.0-12.0) sec INR 1.1 (<1.2) APTT 23.9 (22.0-30.0) sec Sodium 139 (137-145) mmol/L Potassium 3.9 (3.5-5.1) mmol/L Chloride 107 (98-107) mmol/L Carbon Dioxide 25 (22-30) mmol/L Anion Gap 7 mmol/L BUN 7 (7-17) mg/dL Creatinine 0.89 (0.52-1.04) mg/dL Est GFR (CKD-EPI)AfAm >90 (>60 ml/min/1.73 sqM) Est GFR (CKD-EPI)NonAf >90 (>60 ml/min/1.73 sqM) Glucose 103 H (74-99) mg/dL Calcium 9.2 (8.4-10.2) mg/dL Magnesium 1.8 (1.6-2.3) mg/dL Total Bilirubin 0.8 (0.2-1.3) mg/dL AST 16 (14-36) U/L ALT 14 (4-34) U/L Alkaline Phosphatase 62 (38-126) U/L Total Protein 7.0 (6.3-8.2) g/dL Albumin 4.1 (3.5-5.0) g/dL Lipase 68 (23-300) U/L Disposition Clinical Impression: Abdominal pain, Low back pain Disposition: HOME SELF-CARE Condition: Good Instructions (If sedation given, give patient instructions): Low Back Strain (ED), Abdominal Pain (ED) Prescriptions: Cyclobenzaprine [Flexeril] 10 mg PO TID #14 tab Ibuprofen 800 mg PO Q6HR PRN #20 tablet PRN Reason: Pain Is patient prescribed a controlled substance at d/c from ED?: No Referrals: Robyn Hui MD [Primary Care Provider] - 1-2 days Decision Date: 09/19/21 Decision Time: 17:00
== END 2021-09-19 17:26 | disposition home or self-care (01) ==
LOC: EC 12:09
DX: R10.11 Right upper quadrant pain (principal); M54.59 Other low back pain; J45.909 Unspecified asthma, uncomplicated; E78.5 Hyperlipidemia, unspecified; F41.9 Anxiety disorder, unspecified; F32.A Depression, unspecified; F12.90 Cannabis use, unspecified, uncomplicated
CPT/HCPCS: 99284; 96374; 96375; 96361 ×2; 36415; 93005; 80053; 83690; 83735; 85025; 85610; 85730; 76705; J2360; J1885

== ENCOUNTER 2021-12-18 10:10 | Emergency (ER) | payer OTHER ==
[2021-12-18 10:20] VITALS: TEMP 98.1
[2021-12-18] MEDS ORDERED: FAMOTIDINE 20 MG/2 ML VIAL IV STA (10:30)
[2021-12-18] MEDS ORDERED: ONDANSETRON 4 MG/2 ML VIAL IVP STA (10:30)
[2021-12-18] MEDS ORDERED: SODIUM CHLORIDE 0.9% 1,000 ML IV STA (10:30)
[2021-12-18] MEDS ORDERED: diphenhydrAMINE 50 MG/ML 1 ML VIAL IVP STA (10:30)
[2021-12-18] MEDS ORDERED: KETOROLAC 15 MG/ML 1 ML VIAL IVP STA (10:42)
[2021-12-18 11:06] LABS: Basophils % (A) 0 %; Eosinophils # (A) 0.2 k/uL (0-0.7); Eosinophils % (A) 3 %; HCT 39.9 % (34.0-46.0); HGB 13.2 gm/dL (11.4-16.0); Lymphocytes % (A) 18 %; MCH 26.5 pg (25.0-35.0); MCV 80.1 fL (80.0-100.0); Mean Platelet Volume 8.6; Monocytes # (A) 0.5 k/uL (0-1.0); Monocytes % (A) 8 %; Neutrophils % (A) 69 %; Platelet Count 246 k/uL (150-450); RBC 4.98 m/uL (3.80-5.40); RDW 14.2 % (11.5-15.5); WBC 5.8 k/uL (3.8-10.6)
[2021-12-18 11:34] LABS: Appearance,Urine Turbid (Clear); Bilirubin,Urine Negative (Negative); Blood,Urine Negative (Negative); Color,Urine Yellow; Glucose,Urine (UA) Negative (Negative); Ketones,Urine Negative (Negative); Leukocyte Esterase,Urine Large (Negative); Mucus,Urine Few /hpf; Nitrite,Urine Negative (Negative); Protein,Urine Trace (Negative); RBC,Urine 9 /hpf (0-5); Specific Gravity,Urine 1.019 (1.001-1.035); Squamous Epithelial Cell,Urine 18 /hpf (0-4); Urobilinogen,Urine <2.0 mg/dL (<2.0); WBC,Urine 59 /hpf (0-5)
[2021-12-18 11:49] LABS: ALT 11 U/L (4-34); AST 15 U/L (14-36); African American GFR (CKD) >90 (>60 ml/min/1.73 sqM); Albumin 3.4 g/dL (3.5-5.0); Alkaline Phosphatase 57 U/L (38-126); Amylase 43 U/L (30-110); Anion Gap 6 mmol/L; Blood Urea Nitrogen 5 mg/dL (7-17); Calcium 8.2 mg/dL (8.4-10.2); Carbon Dioxide 20 mmol/L (22-30); Chloride 110 mmol/L (98-107); Glucose 90 mg/dL (74-99); Lipase 47 U/L (23-300); Non-African American GFR(CKD) >90 (>60 ml/min/1.73 sqM); Potassium 3.4 mmol/L (3.5-5.1); Sodium 136 mmol/L (137-145); Total Bilirubin 0.8 mg/dL (0.2-1.3); Total Protein 5.8 g/dL (6.3-8.2)
--- NOTE | 2021-12-18 12:03 | ED ---
Nausea/Vomiting/Diarrhea HPI - General Chief complaint: Nausea/Vomiting/Diarrhea Stated complaint: ABD pain, right foot pain Time Seen by Provider: 12/18/21 10:29 Source: patient, RN notes reviewed Mode of arrival: ambulatory Limitations: no limitations - History of Present Illness Initial comments: This is a 26-year-old female who presents to the emergency Department with nausea, vomiting, and diarrhea. Symptoms began approximately 2 days ago. Also has associated mid to lower back and upper abdominal pain. She is unsure if the back and abdominal pain are from the repeated vomiting or a different problem altogether. Describes her vomit as green and states that she is unable to keep down any food but can drink water and Sprite. Denies any sick contacts. Also believes that she injured her right great toe a few days ago. She is unsure what happened, but believes that she's may have stepped on something. She continues to have pain in that area. Denies any fevers, chills, sore throat, cough, dyspnea, chest pain, palpitations, or headaches. MD complaint: nausea, vomiting, diarrhea, abdominal pain Description of Vomiting: food contents, bilious Associated Abdominal Pain: Yes Location: LUQ, RUQ, epigastric Associated Symptoms: nausea/vomiting - Related Data Previous Rx's Medication Instructions Recorded Cephalexin [Keflex] 500 mg PO Q8HR 3 Days #9 cap 12/18/21 Zkd-Ypqm-Tdzfa Acid 1 cap PO DAILY #30 cap 12/18/21 [-U Capsule (formulary)] Allergies Allergy/AdvReac Type Severity Reaction Status Date / Time grass pollen Allergy Rash/Hives Verified 12/18/21 11:42 onion Allergy Anaphylaxis Verified 12/18/21 11:42 Review of Systems ROS Statement: Those systems with pertinent positive or pertinent negative responses have been documented in the HPI. ROS Other: All systems not noted in ROS Statement are negative. Past Medical History Past Medical History: Asthma, Hyperlipidemia Additional Past Medical History / Comment(s): fx pelvis 2009, fx foot 2014 History of Any Multi-Drug Resistant Organisms: None Reported Past Surgical History: Section Additional Past Surgical History / Comment(s): wisdom teeth Past Anesthesia/Blood Transfusion Reactions: No Reported Reaction Past Psychological History: Anxiety, Depression Smoking Status: Never smoker Past Alcohol Use History: None Reported Past Drug Use History: Marijuana - Past Family History Mother Family Medical History: Diabetes Mellitus General Exam Limitations: no limitations General appearance: alert, in distress Head exam: Present: atraumatic, normocephalic, normal inspection Respiratory exam: Present: normal lung sounds bilaterally. Absent: respiratory distress, wheezes, rales, rhonchi, stridor Cardiovascular Exam: Present: regular rate, normal rhythm, normal heart sounds. Absent: systolic murmur, diastolic murmur, rubs, gallop, clicks GI/Abdominal exam: Present: soft, tenderness (RUQ, LUQ, epigastric), hypoactive bowel sounds. Absent: distended, guarding, rebound, rigid Neurological exam: Present: alert, oriented X3, CN II-XII intact Psychiatric exam: Present: normal affect, normal mood Skin exam: Present: warm, dry, intact, normal color. Absent: rash Course Vital Signs 12/18/21 12/18/21 10:17 13:57 Temperature 98.1 F Pulse Rate 102 H 66 Respiratory 18 16 Rate Blood Pressure 110/65 105/78 O2 Sat by Pulse 95 99 Oximetry Medical Decision Making - Medical Decision Making This is a 26-year-old female presents emergency department for nausea, vomiting, diarrhea, and abdominal pain. Lab work is consistent with dehydration. Patient was also noted to be . She would be 3 weeks and 5 days along based on last menstrual period. US was unable to visualize an IUP due to how early along she is in the . Advised that she may have a gastroenteritis on top of the , causing her symptoms. Advised that she remain well hydrated and take [id number] vitamin B6 and Unisom for nausea and vomiting. Prescription for vitamins was also provided and advised she contact Dr. Abreu, her sole ruffer, for follow-up. UA consistent with asymptomatic bacteriuria. Rx for Keflex provided. X-ray of the right foot revealed no acute abnormalities. Advised she take Tylenol for the pain and ice the injury for the first 2 days followed by heat there afterwards. Return precautions reviewed in depth, the patient is instructed to return to the emergency department with any new, worsening, or concerning symptoms. Patient verbalized understanding. This case was discussed in detail with the attending ED physician. Presentation, findings, and treatment plan discussed in detail as well. - Lab Data Result diagrams: 12/18/21 10:42 12/18/21 11:22 Lab Results 12/18/21 12/18/21 12/18/21 Range/Units 10:42 10:42 10:42 WBC 5.8 (3.8-10.6) k/uL RBC 4.98 (3.80-5.40) m/uL Hgb 13.2 (11.4-16.0) gm/dL Hct 39.9 (34.0-46.0) % MCV 80.1 (80.0-100.0) fL MCH 26.5 (25.0-35.0) pg MCHC 33.0 (31.0-37.0) g/dL RDW 14.2 (11.5-15.5) % Plt Count 246 (150-450) k/uL MPV 8.6 Neutrophils % 69 % Lymphocytes % 18 % Monocytes % 8 % Eosinophils % 3 % Basophils % 0 % Neutrophils # 4.0 (1.3-7.7) k/uL Lymphocytes # 1.0 (1.0-4.8) k/uL Monocytes # 0.5 (0-1.0) k/uL Eosinophils # 0.2 (0-0.7) k/uL Basophils # 0.0 (0-0.2) k/uL Sodium (137-145) mmol/L Potassium (3.5-5.1) mmol/L Chloride (98-107) mmol/L Carbon Dioxide (22-30) mmol/L Anion Gap mmol/L BUN (7-17) mg/dL Creatinine (0.52-1.04) mg/dL Est GFR (CKD-EPI)AfAm (>60 ml/min/1.73 sqM) Est GFR (CKD-EPI)NonAf (>60 ml/min/1.73 sqM) Glucose (74-99) mg/dL Calcium (8.4-10.2) mg/dL Total Bilirubin (0.2-1.3) mg/dL AST (14-36) U/L ALT (4-34) U/L Alkaline Phosphatase (38-126) U/L Total Protein (6.3-8.2) g/dL Albumin (3.5-5.0) g/dL Amylase (30-110) U/L Lipase (23-300) U/L HCG, Qual HCG, Quant mIU/mL Urine Color Yellow Urine Appearance Turbid H (Clear) Urine pH 6.0 (5.0-8.0) Ur Specific [place] 1.019 (1.001-1.035) Urine Protein Trace H (Negative) Urine Glucose (UA) Negative (Negative) Urine Ketones Negative (Negative) Urine Blood Negative (Negative) Urine Nitrite Negative (Negative) Urine Bilirubin Negative (Negative) Urine Urobilinogen <2.0 (<2.0) mg/dL Ur Leukocyte Esterase Large H (Negative) Urine RBC 9 H (0-5) /hpf Urine WBC 59 H (0-5) /hpf Ur Squamous Epith Cells 18 H (0-4) /hpf Urine Mucus Few H (None) /hpf Coronavirus (PCR) (Not Detectd) Influenza Type A RNA Not Detected (Not Detectd) Influenza Type B (PCR) Not Detected (Not Detectd) 12/18/21 12/18/21 12/18/21 Range/Units 10:42 11:22 11:22 WBC (3.8-10.6) k/uL RBC (3.80-5.40) m/uL Hgb (11.4-16.0) gm/dL Hct (34.0-46.0) % MCV (80.0-100.0) fL MCH (25.0-35.0) pg MCHC (31.0-37.0) g/dL RDW (11.5-15.5) % Plt Count (150-450) k/uL MPV Neutrophils % % Lymphocytes % % Monocytes % % Eosinophils % % Basophils % % Neutrophils # (1.3-7.7) k/uL Lymphocytes # (1.0-4.8) k/uL Monocytes # (0-1.0) k/uL Eosinophils # (0-0.7) k/uL Basophils # (0-0.2) k/uL Sodium 136 L (137-145) mmol/L Potassium 3.4 L (3.5-5.1) mmol/L Chloride 110 H (98-107) mmol/L Carbon Dioxide 20 L (22-30) mmol/L Anion Gap 6 mmol/L BUN 5 L (7-17) mg/dL Creatinine 0.82 (0.52-1.04) mg/dL Est GFR (CKD-EPI)AfAm >90 (>60 ml/min/1.73 sqM) Est GFR (CKD-EPI)NonAf >90 (>60 ml/min/1.73 sqM) Glucose 90 (74-99) mg/dL Calcium 8.2 L (8.4-10.2) mg/dL Total Bilirubin 0.8 (0.2-1.3) mg/dL AST 15 (14-36) U/L ALT 11 (4-34) U/L Alkaline Phosphatase 57 (38-126) U/L Total Protein 5.8 L (6.3-8.2) g/dL Albumin 3.4 L (3.5-5.0) g/dL Amylase 43 (30-110) U/L Lipase 47 (23-300) U/L HCG, Qual Detected HCG, Quant 45.6 mIU/mL Urine Color Urine Appearance (Clear) Urine pH (5.0-8.0) Ur Specific [place] (1.001-1.035) Urine Protein (Negative) Urine Glucose (UA) (Negative) Urine Ketones (Negative) Urine Blood (Negative) Urine Nitrite (Negative) Urine Bilirubin (Negative) Urine Urobilinogen (<2.0) mg/dL Ur Leukocyte Esterase (Negative) Urine RBC (0-5) /hpf Urine WBC (0-5) /hpf Ur Squamous Epith Cells (0-4) /hpf Urine Mucus (None) /hpf Coronavirus (PCR) Not Detected (Not Detectd) Influenza Type A RNA (Not Detectd) Influenza Type B (PCR) (Not Detectd) - Radiology Data Radiology results: report reviewed, image reviewed Disposition Clinical Impression: , Dehydration Disposition: HOME SELF-CARE Instructions (If sedation given, give patient instructions): Nausea and Vomiting in (ED), (ED) Additional Instructions: Return to the emergency department with any new, worsening, or concerning symptoms. Take the vitamin each day. You may take jmgn-hxm-[id number] vitamin B6 and Unisom as needed for nausea and vomiting. Contact your sole ruffer for an appointment. Prescriptions: Cephalexin [Keflex] 500 mg PO Q8HR 3 Days #9 cap Yov-Ywua-Cavli Acid [-U Capsule (formulary)] 1 cap PO DAILY #30 cap Is patient prescribed a controlled substance at d/c from ED?: No Referrals: Robyn Hui MD [Primary Care Provider] - 1-2 days
[2021-12-18 12:28] LABS: HCG,Qualitative Serum Detected
--- NOTE | 2021-12-18 12:34 | XR ---
Right foot HISTORY: Trauma and pain 3 views the right foot, correlation to previous exam 07/12/2017 Bone mineralization, joint spaces and alignment are stable. There is a plantar calcaneal spur. IMPRESSION: No evident fracture or dislocation. Follow-up as indicated.
--- NOTE | 2021-12-18 13:36 | US ---
EXAMINATION TYPE: Transabdominal DATE OF EXAM: 12/18/2021 1:25 PM COMPARISON: NONE CLINICAL HISTORY: nausea, vomiting, abdominal pain. Pt states N&V, diarrhea, generalized ABD pain EXAM PERFORMED: Transabdominal (TA) EXAM MEASUREMENTS: GESTATIONAL AGE / DATING Physician Established: Not yet established Dates by LMP: (3 weeks/5 days) EDC: 08/29/2022 Dates by First Scan: No previous this is first scan Dates by Current Scan for: No IUP seen at this time MATERNAL ANATOMY Uterus: 10.5 x 4.7 x 7.4 cm Right Ovary: 3.9 x 1.5 x 3.1 cm Left Ovary: 2.7 x 1.7 x 2.2 cm Post CDS / Adnexa: wnl Presence of free fluid: No Presence of corpus luteal cyst: Right Ovary= 1.6 x 1.2 x 1.8 cm GESTATION / SURVEY IUP: No IUP seen at this time, endo thickness= 1.1 cm Date of LMP: 11/22/2021 Beta HcG (if available): Not available at this time No IUP visualize at this time- endo thickness= 1.1 cm IMPRESSION: No evidence for intrauterine at this time. The findings could reflect normal early IUP velez jaylyn missed spontaneous or ectopic is not excluded. Correlate clinically with seria l beta hCG and/or ultrasound.
[2021-12-18 13:59] VITALS: BP 105/78; PULSE 66; RESP 16
== END 2021-12-18 14:03 | disposition home or self-care (01) ==
LOC: EC 10:10
DX: O26.891 Other specified pregnancy related conditions, first trimester (principal); E86.0 Dehydration; M79.671 Pain in right foot; J45.909 Unspecified asthma, uncomplicated; E78.5 Hyperlipidemia, unspecified; F41.9 Anxiety disorder, unspecified; F32.A Depression, unspecified; F12.90 Cannabis use, unspecified, uncomplicated; Z88.8 Allergy status to other drugs, medicaments and biological substances; Z91.018 Allergy to other foods; Z79.899 Other long term (current) drug therapy; Z20.822 Contact with and (suspected) exposure to COVID-19; Z3A.01 Less than 8 weeks gestation of pregnancy
CPT/HCPCS: 36415; 80053; 82150; 83690; 85025; 81001; 84703; 84702; 87086; 87077; 87186; 87502; 87635; 73630; 76801; 99284; 96374; 96375 ×3; 96361; J1200; J2405; J1885

== ENCOUNTER 2022-01-31 11:24 | Emergency (ER) | payer OTHER ==
[2022-01-31 11:42] VITALS: BP 127/79; PULSE 88; RESP 20; TEMP 98
[2022-01-31] MEDS ORDERED: ACETAMINOPHEN TAB 500 MG TAB PO STA (12:04)
--- NOTE | 2022-01-31 12:08 | ED ---
General Adult HPI - General Chief complaint: Nausea/Vomiting/Diarrhea Stated complaint: 10wks preg, pelvic pain Time Seen by Provider: 01/31/22 11:57 Source: patient, RN notes reviewed, old records reviewed Mode of arrival: ambulatory Limitations: no limitations - History of Present Illness Initial comments: This is a well-appearing 26-year-old female that presents to the emergency room with complaints of chronic pelvic pain and states is about 10 weeks . She denies any vaginal bleeding. States that she has had chronic pelvic pain since she was 14 when she sustained a pelvic fracture. With each in the past she has developed increased pelvic pain. Has no recent injury. The pain is worse when she stands at work. She is scheduled to see her TRANSFORMER ASSEMBLER on February 06. She was seen in the emergency room in November and had an ultrasound that was not definitive for an IUP as she was too early in . -: year(s) Location: pelvis Radiation: non-radiation Severity scale (1-10): 5 Quality: aching, constant Worsens with: other (standing) Associated Symptoms: denies other symptoms Treatments Prior to Arrival: none - Related Data Previous Rx's Medication Instructions Recorded Qrt-Fcvz-Dfmyx Acid 1 cap PO DAILY #30 cap 12/18/21 [-U Capsule (formulary)] Cephalexin [Keflex] 500 mg PO Q8HR 3 Days #9 cap 01/31/22 Allergies Allergy/AdvReac Type Severity Reaction Status Date / Time grass pollen Allergy Rash/Hives Verified 01/31/22 11:42 onion Allergy Anaphylaxis Verified 01/31/22 11:42 Review of Systems ROS Statement: Those systems with pertinent positive or pertinent negative responses have been documented in the HPI. ROS Other: All systems not noted in ROS Statement are negative. Past Medical History Past Medical History: Asthma, Hyperlipidemia Additional Past Medical History / Comment(s): fx pelvis 2009, fx foot 2014 History of Any Multi-Drug Resistant Organisms: None Reported Past Surgical History: Section Additional Past Surgical History / Comment(s): wisdom teeth Past Anesthesia/Blood Transfusion Reactions: No Reported Reaction Past Psychological History: Anxiety, Depression Smoking Status: Never smoker Past Alcohol Use History: None Reported Past Drug Use History: Marijuana - Past Family History Mother Family Medical History: Diabetes Mellitus General Exam Limitations: no limitations General appearance: alert, in no apparent distress Head exam: Present: atraumatic Respiratory exam: Present: normal lung sounds bilaterally. Absent: respiratory distress, accessory muscle use Cardiovascular Exam: Present: regular rate GI/Abdominal exam: Present: soft. Absent: distended, tenderness Neurological exam: Present: alert, oriented X3 Psychiatric exam: Present: normal affect, normal mood Skin exam: Present: warm, dry, normal color. Absent: cyanosis, diaphoretic Course Vital Signs 01/31/22 11:39 Temperature 98.0 F Pulse Rate 88 Respiratory 20 Rate Blood Pressure 127/79 O2 Sat by Pulse 99 Oximetry Medical Decision Making - Medical Decision Making Patient with bacteria in urine during first trimester and will be treated with Keflex. ultrasound shows an IUP measuring 10 weeks. No free fluid in the pelvic cul-de-sac. Patient denies any vaginal bleeding or vaginal discharge. She denies any nausea, vomiting or fevers. She has an appointment with her TRANSFORMER ASSEMBLER on February 06. Her pain appears to be chronic in nature and she states that she has this pain intermittently since she was 14 years old and worsens with pregnancies. She states that pain is worse when she is standing at [employer] where she works and is requesting time off. She was directed to take Tylenol as needed for pain, antibiotics as prescribed, increase her fluid intake and follow-up with her TRANSFORMER ASSEMBLER as scheduled. The patient is agreeable to this plan of care. Vital signs are stable. Case discussed with Dr. Cleveland. - Lab Data Lab Results 01/31/22 01/31/22 Range/Units 13:04 13:04 Urine Color Yellow Urine Appearance Cloudy H (Clear) Urine pH 8.0 (5.0-8.0) Ur Specific [place] 1.013 (1.001-1.035) Urine Protein Negative (Negative) Urine Glucose (UA) Negative (Negative) Urine Ketones Negative (Negative) Urine Blood Negative (Negative) Urine Nitrite Negative (Negative) Urine Bilirubin Negative (Negative) Urine Urobilinogen 2.0 (<2.0) mg/dL Ur Leukocyte Esterase Moderate H (Negative) Urine RBC 1 (0-5) /hpf Urine WBC 3 (0-5) /hpf Ur Squamous Epith Cells 8 H (0-4) /hpf Urine Bacteria Rare H (None) /hpf Urine HCG, Qual Detected (Not Detectd) Disposition Clinical Impression: UTI (urinary tract infection) during Disposition: HOME SELF-CARE Condition: Good Instructions (If sedation given, give patient instructions): Urinary Tract Infection in (ED) Additional Instructions: Increase your fluid intake. Tylenol as needed for pain. Take antibiotics as prescribed for the bacteria in your urine. Keep your appointment with her TRANSFORMER ASSEMBLER on February 06. Return to the emergency room with any new or concerning symptoms including increased pain or vaginal bleeding. Prescriptions: Cephalexin [Keflex] 500 mg PO Q8HR 3 Days #9 cap Is patient prescribed a controlled substance at d/c from ED?: No Referrals: Robyn Hui MD [Primary Care Provider] - 1-2 days Frankie Abreu MD [STAFF PHYSICIAN] - 1-2 days Time of Disposition: 13:44
[2022-01-31 13:15] LABS: Appearance,Urine Cloudy (Clear); Bacteria,Urine Rare /hpf; Bilirubin,Urine Negative (Negative); Blood,Urine Negative (Negative); Color,Urine Yellow; Glucose,Urine (UA) Negative (Negative); Ketones,Urine Negative (Negative); Leukocyte Esterase,Urine Moderate (Negative); Nitrite,Urine Negative (Negative); Protein,Urine Negative (Negative); RBC,Urine 1 /hpf (0-5); Specific Gravity,Urine 1.013 (1.001-1.035); Squamous Epithelial Cell,Urine 8 /hpf (0-4); WBC,Urine 3 /hpf (0-5)
--- NOTE | 2022-01-31 13:30 | US ---
EXAMINATION TYPE: Transabdominal DATE OF EXAM: 01/31/2022 12:59 PM COMPARISON: Prior ultrasound December 18, 2021 CLINICAL HISTORY: pelvic pain and . Positive beta hCG test. EXAM PERFORMED: Transvaginal (TV) and Transabdominal (TA) EXAM MEASUREMENTS: GESTATIONAL AGE / DATING Physician Established: (10 weeks/0 days) EDC: 08-29-21 Dates by LMP: (10 weeks/0 days) EDC: 08-29-21 Dates by First Scan: No previous at this facility Dates by Current Scan for: (10 weeks/0 days) EDC: 08-29-21 MATERNAL ANATOMY Uterus: 10.4 x 7.8 x 8.4cm Right Ovary: 2.6 x 2.0 x 2.8cm Left Ovary: 3.3 x 2.1 x 1.9cm Post CDS / Adnexa: wnl Presence of free fluid: no Presence of corpus luteal cyst: no Presence of subchorionic bleed: no GESTATION / SURVEY CRL: 3.1cm (10 weeks/0 days) Yolk Sac (normal less than 6mm): 3mm Heart Rate: 171 bpm Rhythm: Normal IUP: Viable IUP Age Appropriate Anatomy Cord Insertion: Too early to visualize Limbs: Too early to visualize Calvarium: Too early to visualize Date of LMP: 11-22-21 Beta HcG (if available): Not available at this time Single live intrauterine gestation now seen as gestational sac, yolk sac, and pole are present. No free fluid in pelvic cul-de-sac. Symmetric small size bilateral ovaries. No suspicious extra ovarian adnexal masses. IMPRESSION: As above. Single live intrauterine gestation now present. Mean crown-rump length is 3.1 c m corresponding to 10 week 0 day old fetus.
== END 2022-01-31 14:06 | disposition home or self-care (01) ==
LOC: EC 11:24
DX: O23.41 Unspecified infection of urinary tract in pregnancy, first trimester (principal); J45.909 Unspecified asthma, uncomplicated; E78.5 Hyperlipidemia, unspecified; Z91.018 Allergy to other foods; Z3A.10 10 weeks gestation of pregnancy
CPT/HCPCS: 76801; 81001; 81025; 99284

== ENCOUNTER 2022-02-09 16:20 | Emergency (ER) | payer OTHER ==
--- NOTE | 2022-02-09 20:35 | US ---
EXAMINATION TYPE: Transabdominal DATE OF EXAM: 02/09/2022 8:01 PM COMPARISON: NONE CLINICAL HISTORY: 11 weeks spotting. spotting today EXAM PERFORMED: Transabdominal (TA) EXAM MEASUREMENTS: GESTATIONAL AGE / DATING Physician Established: Not yet established Dates by LMP: (11 weeks/2 days) EDC: 08/29/22 Dates by First Scan: (11 weeks/2 days) EDC: 08/29/22 Dates by Current Scan for: (11 weeks/5 days) EDC: 08/26/22 MATERNAL ANATOMY Uterus: 9.9 x 7.1 x 8.1cm Right Ovary: 2.8 x 2.1 x 1.3cm Left Ovary: 2.2 x 1.8 x 1.0cm Post CDS / Adnexa: wnl Presence of free fluid: no Presence of corpus luteal cyst: no Presence of subchorionic bleed: no GESTATION / SURVEY CRL: 4.9cm (11 weeks/5 days) Yolk Sac (normal less than 6mm): 0.4cm Heart Rate: 155 bpm Rhythm: Normal IUP: Viable IUP Date of LMP: 11/22/21 Beta HcG (if available): Not available at this time IMPRESSION: The ultrasound gestational age is 11 weeks and 5 days. No complicating process seen.
--- NOTE | 2022-02-09 20:59 | ED ---
General Adult HPI - General Chief complaint: Vaginal Bleeding Stated complaint: vaginal bleeding, 11 wks Time Seen by Provider: 02/09/22 20:48 Source: patient, RN notes reviewed, old records reviewed Mode of arrival: ambulatory Limitations: no limitations - History of Present Illness Initial comments: Patient is 11 weeks states that she went to the bathroom this afternoon while at work and seen pink on toilet paper. She was concerned and was directed to come to the emergency room by her employer for evaluation. She states she's had no bleeding since. She has no abdominal pain. No vaginal discharge. She is currently taking Keflex after being seen for vaginal spotting on January 31, diagnosed with asymptomatic bacteriuria. She does have an appointment with Dr. Vidales tomorrow her WRECKER OPERATOR. -: hour(s) Severity scale (1-10): 0 Consistency: now resolved Associated Symptoms: denies other symptoms Treatments Prior to Arrival: none - Related Data Previous Rx's Medication Instructions Recorded Utu-Nvrn-Egrre Acid 1 cap PO DAILY #30 cap 12/18/21 [-U Capsule (formulary)] Cephalexin [Keflex] 500 mg PO Q8HR 3 Days #9 cap 01/31/22 Allergies Allergy/AdvReac Type Severity Reaction Status Date / Time grass pollen Allergy Rash/Hives Verified 02/09/22 17:09 onion Allergy Anaphylaxis Verified 02/09/22 17:09 Review of Systems ROS Statement: Those systems with pertinent positive or pertinent negative responses have been documented in the HPI. ROS Other: All systems not noted in ROS Statement are negative. Past Medical History Past Medical History: Asthma, Hyperlipidemia Additional Past Medical History / Comment(s): fx pelvis 2009, fx foot 2014 History of Any Multi-Drug Resistant Organisms: None Reported Past Surgical History: Section Additional Past Surgical History / Comment(s): wisdom teeth Past Anesthesia/Blood Transfusion Reactions: No Reported Reaction Past Psychological History: Anxiety, Depression Smoking Status: Never smoker Past Alcohol Use History: None Reported Past Drug Use History: Marijuana - Past Family History Mother Family Medical History: Diabetes Mellitus General Exam Limitations: no limitations General appearance: alert, in no apparent distress Head exam: Present: atraumatic Eye exam: Present: normal appearance. Absent: scleral icterus, conjunctival injection, periorbital swelling ENT exam: Present: mucous membranes moist Neck exam: Present: full ROM. Absent: tenderness, meningismus Respiratory exam: Present: normal lung sounds bilaterally. Absent: respiratory distress, wheezes, rales, rhonchi, stridor, chest wall tenderness, accessory muscle use Cardiovascular Exam: Present: regular rate GI/Abdominal exam: Present: soft. Absent: distended, tenderness, guarding, rebound, rigid Extremities exam: Present: normal capillary refill. Absent: pedal edema Neurological exam: Present: alert, oriented X3 Psychiatric exam: Present: normal affect, normal mood Skin exam: Present: warm, dry, intact, normal color. Absent: cyanosis, diaphoretic, petechiae, pallor Course Vital Signs 02/09/22 02/09/22 17:07 21:13 Temperature 98.1 F 98.6 F Pulse Rate 75 66 Respiratory 20 18 Rate Blood Pressure 120/70 116/78 O2 Sat by Pulse 96 100 Oximetry Medical Decision Making - Medical Decision Making Patient presents with vaginal spotting, she is 11 weeks . Ultrasound shows viable IUP 11 weeks 5 days. Heart rate 155. Her blood type is B+. She has no abdominal pain, no vaginal discharge. She says she has not had any further vaginal bleeding. She is currently taking Keflex for asymptomatic bacteriuria was prescribed at her visit January 31. She does have an appointment with Dr. Vidales tomorrow. She'll be discharged home and instructed to keep that appointment and return to the emergency room with any new or concerning symptoms. Patient is agreeable to this plan of care. Case was discussed with Dr. Cleveland. Disposition Clinical Impression: Vaginal bleeding during Disposition: HOME SELF-CARE Condition: Good Instructions (If sedation given, give patient instructions): Threatened Miscarriage (ED) Additional Instructions: Follow-up with your WRECKER OPERATOR tomorrow as scheduled. Return to the emergency room with any new or concerning symptoms. Is patient prescribed a controlled substance at d/c from ED?: No Referrals: Robyn Hui MD [Primary Care Provider] - 1-2 days Frankie Abreu MD [STAFF PHYSICIAN] - 1-2 days Time of Disposition: 20:59
[2022-02-09 21:14] VITALS: BP 116/78; PULSE 66; RESP 18; TEMP 98.6
== END 2022-02-09 21:15 | disposition home or self-care (01) ==
LOC: EC 16:20
DX: O20.9 Hemorrhage in early pregnancy, unspecified (principal); J45.909 Unspecified asthma, uncomplicated; E78.5 Hyperlipidemia, unspecified; F32.A Depression, unspecified; F41.9 Anxiety disorder, unspecified; F12.90 Cannabis use, unspecified, uncomplicated; Z91.048 Other nonmedicinal substance allergy status; Z91.018 Allergy to other foods; Z79.899 Other long term (current) drug therapy; Z3A.11 11 weeks gestation of pregnancy
CPT/HCPCS: 76801; 99284

== ENCOUNTER 2022-03-02 12:29 | Emergency (ER) | payer OTHER ==
[2022-03-02 12:38] VITALS: TEMP 97.7
--- NOTE | 2022-03-02 13:58 | ED ---
Fall HPI - General Chief Complaint: Fall Stated Complaint: 14 weeks preg, Fall Time Seen by Provider: 03/02/22 13:00 Source: patient, RN notes reviewed Mode of arrival: ambulatory - History of Present Illness Initial Comments: This is a 26-year-old female who presents to the emergency department for a fall. The patient is 14 weeks , and states that coming out of work last night she tripped and fell, landing on her right side. She has since had increasing pain and pressure to the abdomen and pelvis. Denies any vaginal bleeding, nausea, or vomiting. She has not taken anything for her symptoms. Denies hitting her head or any loss of consciousness. Denies any fevers, chills, sore throat, cough, dyspnea, chest pain, palpitations, nausea, vomiting, diarrhea, back pain, or headaches. MD Complaint: fall Onset/Timin -: days(s) Fall From: standing Fall Witnessed: no Place Fall Occurred: work Loss of Consciousness: none Prolonged Down Time?: no - Related Data Previous Rx's Medication Instructions Recorded Vyl-Mjfa-Xscgn Acid 1 cap PO DAILY #30 cap 12/18/21 [-U Capsule (formulary)] Cephalexin [Keflex] 500 mg PO Q8HR 3 Days #9 cap 01/31/22 Allergies Allergy/AdvReac Type Severity Reaction Status Date / Time grass pollen Allergy Rash/Hives Verified 03/02/22 12:38 onion Allergy Anaphylaxis Verified 03/02/22 12:38 Review of Systems ROS Statement: Those systems with pertinent positive or pertinent negative responses have been documented in the HPI. ROS Other: All systems not noted in ROS Statement are negative. Past Medical History Past Medical History: Asthma, Hyperlipidemia Additional Past Medical History / Comment(s): fx pelvis 2009, fx foot 2014 History of Any Multi-Drug Resistant Organisms: None Reported Past Surgical History: Section Additional Past Surgical History / Comment(s): wisdom teeth Past Anesthesia/Blood Transfusion Reactions: No Reported Reaction Past Psychological History: Anxiety, Depression Smoking Status: Never smoker Past Alcohol Use History: None Reported Past Drug Use History: Marijuana - Past Family History Mother Family Medical History: Diabetes Mellitus General Exam Limitations: no limitations General appearance: alert, in no apparent distress Head exam: Present: atraumatic, normocephalic, normal inspection Respiratory exam: Present: normal lung sounds bilaterally. Absent: respiratory distress, wheezes, rales, rhonchi, stridor Cardiovascular Exam: Present: regular rate, normal rhythm, normal heart sounds. Absent: systolic murmur, diastolic murmur, rubs, gallop, clicks Neurological exam: Present: alert, oriented X3, CN II-XII intact Psychiatric exam: Present: normal affect, normal mood Skin exam: Present: warm, dry, intact, normal color. Absent: rash Course Vital Signs 03/02/22 12:36 Temperature 97.7 F Pulse Rate 74 Respiratory 20 Rate Blood Pressure 126/84 O2 Sat by Pulse 99 Oximetry Medical Decision Making - Medical Decision Making This is a 26-year-old female who presents to the emergency department for a fall. Lab work obtained and was found to be nonactionable. Obstetrics ultrasound obtained revealing a viable and no evidence of distress. Urinalysis does not reveal any signs of asymptomatic bacteriuria. P atient declines any Tylenol for pain control. She is instructed to follow-up with her video operator as scheduled and to alert her of this incident. Return precautions reviewed in depth, the patient is instructed to return to the emergency department with any new, worsening, or concerning symptoms. Patient verbalized understanding. This case was discussed in detail with the attending ED physician. Presentation, findings, and treatment plan discussed in detail as well. - Lab Data Result diagrams: 03/02/22 14:02 03/02/22 14:02 Lab Results 03/02/22 03/02/22 03/02/22 Range/Units 13:42 14:02 14:02 WBC 7.0 (3.8-10.6) k/uL RBC 4.76 (3.80-5.40) m/uL Hgb 12.8 (11.4-16.0) gm/dL Hct 37.9 (34.0-46.0) % MCV 79.7 L (80.0-100.0) fL MCH 26.9 (25.0-35.0) pg MCHC 33.8 (31.0-37.0) g/dL RDW 13.5 (11.5-15.5) % Plt Count 215 (150-450) k/uL MPV 9.2 Neutrophils % 64 % Lymphocytes % 25 % Monocytes % 4 % Eosinophils % 5 % Basophils % 1 % Neutrophils # 4.5 (1.3-7.7) k/uL Lymphocytes # 1.7 (1.0-4.8) k/uL Monocytes # 0.3 (0-1.0) k/uL Eosinophils # 0.4 (0-0.7) k/uL Basophils # 0.0 (0-0.2) k/uL Sodium 135 L (137-145) mmol/L Potassium 4.1 (3.5-5.1) mmol/L Chloride 105 (98-107) mmol/L Carbon Dioxide 21 L (22-30) mmol/L Anion Gap 9 mmol/L BUN 4 L (7-17) mg/dL Creatinine 0.63 (0.52-1.04) mg/dL Est GFR (CKD-EPI)AfAm >90 (>60 ml/min/1.73 sqM) Est GFR (CKD-EPI)NonAf >90 (>60 ml/min/1.73 sqM) Glucose 84 (74-99) mg/dL Calcium 9.3 (8.4-10.2) mg/dL Total Bilirubin 0.7 (0.2-1.3) mg/dL AST 25 (14-36) U/L ALT 26 (4-34) U/L Alkaline Phosphatase 71 (38-126) U/L Total Protein 6.8 (6.3-8.2) g/dL Albumin 4.0 (3.5-5.0) g/dL HCG, Quant 69092.2 mIU/mL Urine Color Yellow Urine Appearance Cloudy H (Clear) Urine pH 7.0 (5.0-8.0) Ur Specific [place] 1.013 (1.001-1.035) Urine Protein Negative (Negative) Urine Glucose (UA) Negative (Negative) Urine Ketones 1+ H (Negative) Urine Blood Negative (Negative) Urine Nitrite Negative (Negative) Urine Bilirubin Negative (Negative) Urine Urobilinogen <2.0 (<2.0) mg/dL Ur Leukocyte Esterase Large H (Negative) Urine RBC 1 (0-5) /hpf Urine WBC 2 (0-5) /hpf Ur Squamous Epith Cells 15 H (0-4) /hpf Urine Mucus Rare H (None) /hpf Blood Type Blood Type Recheck Bld Type Recheck Status 03/02/22 Range/Units 14:02 WBC (3.8-10.6) k/uL RBC (3.80-5.40) m/uL Hgb (11.4-16.0) gm/dL Hct (34.0-46.0) % MCV (80.0-100.0) fL MCH (25.0-35.0) pg MCHC (31.0-37.0) g/dL RDW (11.5-15.5) % Plt Count (150-450) k/uL MPV Neutrophils % % Lymphocytes % % Monocytes % % Eosinophils % % Basophils % % Neutrophils # (1.3-7.7) k/uL Lymphocytes # (1.0-4.8) k/uL Monocytes # (0-1.0) k/uL Eosinophils # (0-0.7) k/uL Basophils # (0-0.2) k/uL Sodium (137-145) mmol/L Potassium (3.5-5.1) mmol/L Chloride (98-107) mmol/L Carbon Dioxide (22-30) mmol/L Anion Gap mmol/L BUN (7-17) mg/dL Creatinine (0.52-1.04) mg/dL Est GFR (CKD-EPI)AfAm (>60 ml/min/1.73 sqM) Est GFR (CKD-EPI)NonAf (>60 ml/min/1.73 sqM) Glucose (74-99) mg/dL Calcium (8.4-10.2) mg/dL Total Bilirubin (0.2-1.3) mg/dL AST (14-36) U/L ALT (4-34) U/L Alkaline Phosphatase (38-126) U/L Total Protein (6.3-8.2) g/dL Albumin (3.5-5.0) g/dL HCG, Quant mIU/mL Urine Color Urine Appearance (Clear) Urine pH (5.0-8.0) Ur Specific [place] (1.001-1.035) Urine Protein (Negative) Urine Glucose (UA) (Negative) Urine Ketones (Negative) Urine Blood (Negative) Urine Nitrite (Negative) Urine Bilirubin (Negative) Urine Urobilinogen (<2.0) mg/dL Ur Leukocyte Esterase (Negative) Urine RBC (0-5) /hpf Urine WBC (0-5) /hpf Ur Squamous Epith Cells (0-4) /hpf Urine Mucus (None) /hpf Blood Type B Positive Blood Type Recheck B Pos Bld Type Recheck Status No - Radiology Data Radiology results: report reviewed, image reviewed Disposition Clinical Impression: Fall Disposition: HOME SELF-CARE Instructions (If sedation given, give patient instructions): (ED), Fall Prevention (ED) Additional Instructions: Return to the emergency department with any new, worsening, or concerning symp toms. Take Tylenol as needed for any discomfort. Follow-up with your video operator as scheduled. Is patient prescribed a controlled substance at d/c from ED?: No Referrals: None,Stated [Primary Care Provider] - 1-2 days
[2022-03-02 14:14] LABS: Basophils % (A) 1 %; Eosinophils # (A) 0.4 k/uL (0-0.7); Eosinophils % (A) 5 %; HCT 37.9 % (34.0-46.0); HGB 12.8 gm/dL (11.4-16.0); Lymphocytes # (A) 1.7 k/uL (1.0-4.8); Lymphocytes % (A) 25 %; MCH 26.9 pg (25.0-35.0); MCHC 33.8 g/dL (31.0-37.0); MCV 79.7 fL (80.0-100.0); Mean Platelet Volume 9.2; Monocytes # (A) 0.3 k/uL (0-1.0); Monocytes % (A) 4 %; Neutrophils # (A) 4.5 k/uL (1.3-7.7); Neutrophils % (A) 64 %; Platelet Count 215 k/uL (150-450); RBC 4.76 m/uL (3.80-5.40); RDW 13.5 % (11.5-15.5)
[2022-03-02 14:25] LABS: ALT 26 U/L (4-34); AST 25 U/L (14-36); African American GFR (CKD) >90 (>60 ml/min/1.73 sqM); Alkaline Phosphatase 71 U/L (38-126); Anion Gap 9 mmol/L; Blood Urea Nitrogen 4 mg/dL (7-17); Calcium 9.3 mg/dL (8.4-10.2); Carbon Dioxide 21 mmol/L (22-30); Chloride 105 mmol/L (98-107); Glucose 84 mg/dL (74-99); Non-African American GFR(CKD) >90 (>60 ml/min/1.73 sqM); Potassium 4.1 mmol/L (3.5-5.1); Sodium 135 mmol/L (137-145); Total Bilirubin 0.7 mg/dL (0.2-1.3); Total Protein 6.8 g/dL (6.3-8.2)
--- NOTE | 2022-03-02 14:25 | US ---
EXAMINATION TYPE: US OB >= 14 wk fetus DATE OF EXAM: 03/02/2022 COMPARISON: None CLINICAL HISTORY: Pelvic and abdominal pain after fall in , patient fell last night and now her pelvis hurts, no bleeding TECHNIQUE: OBTA GESTATIONAL AGE / DATING Physician Established: (14 weeks/2 days) EDC: 08/29/2022 Dates by LMP: (14 weeks/2 days) EDC: 08/29/2022 Dates by First Scan: (14 weeks/2 days) EDC: 08/29/2022 Dates by Current Scan: (14 weeks/6 days) EDC: 08/25/2022 SURVEY IUP: Single PLACENTA: Posterior PREVIA: Low Lying SHERIDAN: 14.3 cm Normal CERVICAL LENGTH (transabdominal: norm > 3.0cm): 3.2 cm BIOMETRY PRESENTATION: Variable BPD: 2.7 cm 14 weeks / 6 days HC: 10.4 cm 15 weeks / 0 days AC: 8.2 cm 14 weeks / 5 days FL: 1.6 cm 14 weeks / 5 days ESTIMATED WEIGHT IN GRAMS: 103 grams ESTIMATED WEIGHT IN LBS/OZ: 0 lbs. 4 oz. WEIGHT PERCENTAGE BASED ON ESTABLISHED DATES: 61% HC/AC: 1.2 Normal FL/AC: 19 Normal HEART RATE: 143 bpm RHYTHM: Normal IMPRESSION: The ultrasound gestational age is 14 weeks and 6 days. No complicating process seen. Satisfactory neal wth.
[2022-03-02 14:47] LABS: Appearance,Urine Cloudy (Clear); Bilirubin,Urine Negative (Negative); Blood,Urine Negative (Negative); Color,Urine Yellow; Glucose,Urine (UA) Negative (Negative); Ketones,Urine 1+ (Negative); Leukocyte Esterase,Urine Large (Negative); Mucus,Urine Rare /hpf; Nitrite,Urine Negative (Negative); Protein,Urine Negative (Negative); RBC,Urine 1 /hpf (0-5); Specific Gravity,Urine 1.013 (1.001-1.035); Squamous Epithelial Cell,Urine 15 /hpf (0-4); Urobilinogen,Urine <2.0 mg/dL (<2.0); WBC,Urine 2 /hpf (0-5)
[2022-03-02 15:07] LABS: HCG,Quantitative Serum 56502.2 mIU/mL
[2022-03-02 18:01] VITALS: BP 105/66; PULSE 69; RESP 18
== END 2022-03-02 15:45 | disposition home or self-care (01) ==
LOC: EC 12:29
DX: O9A.212 Injury, poisoning and certain other consequences of external causes complicating pregnancy, second trimester (principal); R10.2 Pelvic and perineal pain; O99.512 Diseases of the respiratory system complicating pregnancy, second trimester; J45.909 Unspecified asthma, uncomplicated; O99.282 Endocrine, nutritional and metabolic diseases complicating pregnancy, second trimester; E78.5 Hyperlipidemia, unspecified; Z3A.14 14 weeks gestation of pregnancy; Z91.048 Other nonmedicinal substance allergy status; Z91.018 Allergy to other foods; W01.0XXA Fall on same level from slipping, tripping and stumbling without subsequent striking against object, initial encounter
CPT/HCPCS: 36415; 76805; 80053; 81001; 84702; 85025; 86900; 86901; 99284

== ENCOUNTER 2023-06-30 14:28 | Emergency (ER) | payer OTHER ==
[2023-06-30 15:02] VITALS: BP 122/88; PULSE 100; TEMP 97
--- NOTE | 2023-06-30 15:14 | ED ---
URI HPI - General Chief Complaint: Upper Respiratory Infection Stated Complaint: Headache, Covid testing Time Seen by Provider: 06/30/23 14:38 Source: patient, RN notes reviewed Mode of arrival: ambulatory Limitations: no limitations - History of Present Illness Initial Comments: 27-year-old female presents emergency department with chief complaint of cough and congestion. Patient states she was exposed to COVID-19. Patient is concerned as she has mild headache and URI symptoms. Denies any nausea vomit diarrhea constipation no significant shortness of breath has not taken any medications recently. - Related Data Previous Rx's Medication Instructions Recorded Sac-Pdjx-Dcwes Acid 1 cap PO DAILY #30 cap 12/18/21 [-U Capsule (formulary)] Cephalexin [Keflex] 500 mg PO Q8HR 3 Days #9 cap 01/31/22 Allergies Allergy/AdvReac Type Severity Reaction Status Date / Time grass pollen Allergy Rash/Hives Verified 03/02/22 12:38 onion Allergy Anaphylaxis Verified 03/02/22 12:38 Review of Systems ROS Statement: Those systems with pertinent positive or pertinent negative responses have been documented in the HPI. ROS Other: All systems not noted in ROS Statement are negative. Past Medical History Past Medical History: Asthma, Hyperlipidemia Additional Past Medical History / Comment(s): fx pelvis 2009, fx foot 2014 History of Any Multi-Drug Resistant Organisms: None Reported Past Surgical History: Section Additional Past Surgical History / Comment(s): wisdom teeth Past Anesthesia/Blood Transfusion Reactions: No Reported Reaction Past Psychological History: Anxiety, Depression Smoking Status: Never smoker Past Alcohol Use History: None Reported Past Drug Use History: Marijuana - Past Family History Mother Family Medical History: Diabetes Mellitus General Exam Limitations: no limitations General appearance: alert, in no apparent distress Head exam: Present: atraumatic, normocephalic, normal inspection Eye exam: Present: normal appearance, PERRL, EOMI. Absent: scleral icterus, conjunctival injection, periorbital swelling ENT exam: Present: normal exam, mucous membranes moist Neck exam: Present: normal inspection, full ROM. Absent: tenderness, meningismus, lymphadenopathy Respiratory exam: Present: normal lung sounds bilaterally. Absent: respiratory distress, wheezes, rales, rhonchi, stridor Cardiovascular Exam: Present: regular rate, normal rhythm, normal heart sounds. Absent: systolic murmur, diastolic murmur, rubs, gallop, clicks GI/Abdominal exam: Present: soft, normal bowel sounds. Absent: distended, tenderness, guarding, rebound, rigid Course Vital Signs 06/30/23 06/30/23 14:43 16:15 Temperature 97 F L Pulse Rate 100 Respiratory 20 16 Rate Blood Pressure 122/88 O2 Sat by Pulse 99 Oximetry Medical Decision Making - Medical Decision Making Was pt. sent in by a medical professional or institution (, ETHAN, FACTORY HELPER, urgent care, hospital, or half-way...) When possible be specific @ -No Did you speak to anyone other than the patient for history (EMS, parent, family, police, friend...)? What history was obtained from this source @ -No Did you review nursing and triage notes (agree or disagree)? Why? @ -I reviewed and agree with nursing and triage notes Were old charts reviewed (outside hosp., previous admission, EMS record, old EKG, old radiological studies, urgent care reports/EKG's, half-way records)? Report findings @ -No old charts were reviewed Differential Diagnosis (chest pain, altered mental status, abdominal pain women, abdominal pain men, vaginal bleeding, weakness, fever, dyspnea, syncope, headache, dizziness, GI bleed, back pain, seizure, CVA, palpatations, mental health, musculoskeletal)? @ -COVID 19, RSV, influenza, pneumonia, acute bronchitis, URI, this list is not all inclusive EKG interpreted by me (3pts min.). @ -[None X-rays interpreted by me (1pt min.). @ -None done CT interpreted by me (1pt min.). @ -None done U/S interpreted by me (1pt. min.). @ -None done What testing was considered but not performed or refused? (CT, X-rays, U/S, labs)? Why? @ -None What meds were considered but not given or refused? Why? @ -None Did you discuss the management of the patient with other professionals (professionals i.e. ETHAN Wisdom, FACTORY HELPER, lab, RT, psych nurse, child protective services social worker, hash slinger, teacher, production officer, patient case coordinator)? Give summary @ -No Was smoking cessation discussed for >3mins.? @ -No Was critical care preformed (if so, how long)? @ -No Were there social determinants of health that impacted care today? How? (Homelessness, low income, unemployed, alcoholism, drug addiction, transportation, low edu. Level, literacy, decrease access to med. care, senior living, rehab)? @ -No Was there de-escalation of care discussed even if they declined (Discuss DNR or withdrawal of care, Hospice)? DNR status @ -No What co-morbidities impacted this encounter? (DM, HTN, Smoking, COPD, CAD, Cancer, CVA, ARF, Chemo, Hep., AIDS, mental health diagnosis, sleep apnea, morbid obesity)? @ -None Was patient admitted / discharged? Hospital course, mention meds given and route, prescriptions, significant lab abnormalities, going to OR and other pertinent info. @ -[Discharge patient viral swab was negative. Patient discharged in stable condition comparative discussed. Undiagnosed new problem with uncertain prognosis? @ -No Drug Therapy requiring intensive monitoring for toxicity (Heparin, Nitro, Insulin, Cardizem)? @ -No Were any procedures done? @ -No Diagnosis/symptom? @ -[Viral URI Acute, or Chronic, or Acute on Chronic? @ -Acute Uncomplicated (without systemic symptoms) or Complicated (systemic symptoms)? @ -Uncomplicated Side effects of treatment? @ -[No Exacerbation, Progression, or Severe Exacerbation? @ -No Poses a threat to life or bodily function? How? (Chest pain, [place], [place], pneumonia, PE, COPD, DKA, ARF, appy, cholecystitis, CVA, Diverticulitis, Homicidal, Suicidal, threat to staff... and all critical care pts) @ -No - Lab Data Lab Results 06/30/23 Range/Units 14:43 Influenza Type A (PCR) Not Detected (Not Detectd) Influenza Type B (PCR) Not Detected (Not Detectd) RSV (PCR) Not Detected (Not Detectd) SARS-CoV-2 (PCR) Not Detected (Not Detectd) Disposition Clinical Impression: Acute upper respiratory infection Disposition: HOME SELF-CARE Condition: Stable Instructions (If sedation given, give patient instructions): Upper Respiratory Infection (ED) Additional Instructions: Please return to the Emergency Department if symptoms worsen or any other concerns. Is patient prescribed a controlled substance at d/c from ED?: No Referrals: Braden Shea MD [Primary Care Provider] - 1-2 days Time of Disposition: 15:58
[2023-06-30 18:36] VITALS: RESP 16
== END 2023-06-30 16:15 | disposition home or self-care (01) ==
LOC: EC 14:28
DX: J06.9 Acute upper respiratory infection, unspecified (principal); J45.909 Unspecified asthma, uncomplicated; Z91.018 Allergy to other foods; Z20.822 Contact with and (suspected) exposure to COVID-19
CPT/HCPCS: 87636; 99284